=== PATIENT | female | born 1985 | race Caucasian/White ===

== ENCOUNTER 2021-03-30 17:47 | Inpatient (IN) | payer OTHER, MEDICAID, SELFPAY ==
--- NOTE | ~2021-03-30 | XR_ITS ---
EXAMINATION: XR CHEST CLINICAL INFORMATION: Shortness of breath COMPARISON: None TECHNIQUE: 2 views of the chest were obtained. FINDINGS: No significant abnormality is noted involving the heart, lungs, mediastinum, bony thorax or soft tissues. XR/XR chest 2V IMPRESSION: No acute disease.
[2021-03-30 18:26] VITALS: RESP 24; BMI 23.8
--- NOTE | 2021-03-30 19:04 | ED_ITS ---
HPI - Psych General Chief Complaint: Psychiatric Symptoms Stated Complaint: crisis Time Seen by Provider: 03/30/21 18:16 Source: EMS Mode of arrival: EMS History of Present Illness HPI Narrative: 36-year-old female with past medical history is significant for anxiety disorder, depression, , PTSD and substance abuse with alcohol, marijuana and tobacco use with prior history of ED visit in 2004 for alcohol intoxication and overdose on amitriptyline she presents via EMS from her apartment apparently were her neighbor called for patient acting erratically. She was found to be acting erratically and disorganized apparently has not been eating in taking care of herself. Patient upon arrival with rapid speech, disorganized behavior and states symptoms are worsened by the fact that PD was called on her and she was sent in the emergency room on Section 12 for the above complaint. She admits to marijuana use she denies any alcohol or any other illicit drugs. She denies suicidal ideation. complaint: anxiety Onset (ago): day(s) Duration: constant History of same: Yes Relieving factors: none Exacerbating factors: none Associated psychiatric symptoms: none Treatments prior to arrival: none Related Data Allergies Allergy/AdvReac Type Severity Reaction Status Date / Time No Known Allergies Allergy Verified 03/30/21 18:16 Review of Systems Review of Systems: Yes Unobtainable due to mental condition (Acute psychosis) [facility] Past Medical History Medical History (Updated 03/30/21 @ 20:47 by Kevin Herr NP) Anxiety Depression Osteoporosis PTSD (post-traumatic stress disorder) Social History Social History Advance Directives: No Physical Exam Vital Signs: Vital Signs: Last Vital Signs Resp 24 H 03/30/21 18:26 Body Mass Index 23.8 Const: Other: Appears with her stated age, disheveled General: cooperative and poor hygiene; No intoxicated appearing Nutritional Appearance: average body habitus Orientation/consciousness: patient oriented x3 HENMT: Head: Yes normal to inspection Ears: hearing grossly normal ron aterally Eyes: General: appearance normal, both eyes and all related structures Visual Mehta: normal visual mehta by confrontation Neck: Neck: Yes normal visual inspection, No positive Brudzinski's sign, No positive Kernig's sign and No tender Thyroid: Thyroid normal Chest: Chest palpation & inspection: normal inspection of the chest Resp: Effort & Inspection: normal respiratory effort Auscultation: clear to auscultation bilaterally Cardio: Jugular venous distension: no JVD Rate: regular rate Rhythm: regular rhythm Heart sounds: S1 normal heart sound present and S2 normal heart sound present GI: Inspection: Yes normal to inspection Percussion: Yes normal to percussion Auscultation: normal bowel sounds : General: Yes no CVA tenderness Back/Spine/Pelvis: Back: no CVA tenderness Skin: General skin exam: no rashes or lesions noted Neuro: General: patient oriented x3 Extrem: General: Yes normal to inspection Course Reevaluation(s) Reevaluation #1: 1900 In review 36-year-old female with history of anxiety, depression, PTSD, substance abuse presenting on a Section 12 for erratic/disorganized behavior by PD admits to marijuana use otherwise denies any other illicit drug use. History of amitriptyline overdose in 2004. Denies any illicit drug use or taking any intentional drugs today. She is comfort a anderson upon arrival however disorganized and racing thoughts. Able to behavioral health counselor and redirect her and met with care team directly upon arrival. I will give her 1 mg Ativan for her mod erate/severe anxiety attack that she is having and check labs for medical screening and obtain crisis been recent plan reviewed with her in detail, Section 12 and sharp Reevaluation #2: 2100 Care team has been at bedside providing therapeutic redirection to her much calmer after lorazepam. Refused lab work for medical clearance now agreeable. At this time patient will be signed out pending medical clearance with labs and crisis evaluation by N. Discharge Plan Discharge Clinical Impression: Acute anxiety
[2021-03-30] MEDS: LORazepam 1 MG TABLET PO (19:15)
--- NOTE | 2021-03-30 19:21 | MHC.CARE ---
CARE team assisted ED provider and staff with supporting the pt, who arrived by ambulance on a Sect 12 by PD, through the changeover process. This verse writer provided space for pt to speak about recent events and circumstances that led to her being sent to the ED for evaluation. After some time, pt agreed to change into hospital attire and to receive medications to aid with managing her ongoing panic attack that she endorsed experiencing. She has been reluctant to provide a urine sample for a test and a tox screen and was told by this verse writer that she doesn't need to provide one now, and when she is feeling less overwhelmed that we can revisit the matter. During this interaction pt was observed to be responding to internal stimuli, often stopping and staring intensely and stating that she could hear her daughter screaming or her daughter's father yelling at her. She was adamant with her belief that her 1 yr old daughter Lulú had and that she and her daughter's father were told this by the pt's older daughter Anshul, who is 13 years old. The timeline of these events was unclear, but she consistently reported that on 09/11/2020 that she brought Lulú to [facility] ER because she was sick and that they tricked her into handing them her daughter and she was then taken by [facility]. She reported that she has seen her daughter twice since this happened and the last time was on Mother's Day. Pt did share that when Lulú was taken away that the hospital claimed that it was for the same reasons that were listed on the Sect 12, which she denied was happening then and presently. Recommendation is that she be referred for a crisis evaluation once she is deemed medically clear for assessment. If [facility] is unable to provide a clinician, this verse writer will resume meeting with the pt. The Sect 12a will remain active until pt is evaluated, at which time a new Sect 12a may be completed if she is determined to require inpt level of care and intervention.
--- NOTE | 2021-03-30 21:50 | PC.NURSE ---
Per [facility], arrival for eval will be around 0100 or tomorrow during dayshift am.
--- NOTE | 2021-03-30 22:21 | MHC.CARE ---
N unable to provide clinician until after 1am, possibly 1st shift. [facility] triage will notify [facility] that CARE team will be completing assessment. Ample collateral from pt's mother and face to face time has already been expended. This telegraphic typewriter installer will meet with pt again to gather additional information and determine disposition and plan of care.
[2021-03-31] MEDS: LORazepam 1 MG TABLET 2 MG PO (01:34)
--- NOTE | 2021-03-31 03:27 | MHC.CARE ---
Disposition if for inpatient psych placement. Consulted with asset protection lead psych Diana Parker for final dispo. Sect 12a signed by Aditi Warner and placed in pt's chart. She will remain in ED pending admission.
[2021-03-31 05:39] VITALS: RESP 18
[2021-03-31 05:51] LABS: Basophils Absolute Auto 0.1 X10*3/uL (0.0-0.2); Basophils Percent Auto 0.6 % (0-2); Eosinophils Absolute Auto 0.1 X10*3/uL (0.0-0.4); Eosinophils Percent Auto 0.9 % (0-4); Hematocrit 37.9 % (37-47); Hemoglobin 12.9 g/dl (12.0-16.0); Imm Gran Abs Auto 0.02 X10*3/uL (0.00-0.03); Imm Gran Pct Auto 0.2 % (0.0-0.4); Lymphocytes Absolute Auto 2.9 X10*3/uL (1.2-4.9); Lymphocytes Percent Auto 31.4 % (20-40); Mean Corpuscular Hemoglobin 31.1 pg (27.0-33.0); Mean Corpuscular Volume 91.3 fL (80-98); Mean Platelet Volume 12.1 fL (9.4-12.3); Monocytes Absolute Auto 0.7 X10*3/uL (0.1-1.2); Monocytes Percent Auto 7.3 % (2-11); Neutrophils Absolute Auto 5.6 X10*3/uL (2.0-8.3); Neutrophils Percent Auto 59.6 % (45-73); Platelet Count 300 X10*3/uL (160-400); Red Blood Count 4.15 X10*6/uL (4.20-5.50); Red Cell Distribution Width 12.9 % (11.0-16.0); White Blood Count 9.3 X10*3/uL (4.8-10.8)
[2021-03-31 05:52] LABS: MANUAL DIFF FLAG NO
[2021-03-31 06:20] LABS: Ethanol < 10 mg/dL
[2021-03-31 06:23] LABS: Alanine Aminotransferase 10 U/L (0-31); Albumin Level 4.4 g/dL (3.5-5.0); Alkaline Phosphatase 43 U/L (39-117); Anion Gap 15 (12-20); Aspartate Amino Transferase 11 U/L (5-31); Bilirubin Total 1.3 mg/dL (0.0-1.0); Blood Urea Nitrogen 17 mg/dL (9-16); Calcium 9.5 mg/dL (8.4-10.2); Carbon Dioxide 24 mmol/L (22-29); Chloride 106 mmol/L (96-108); Creatinine Clr Calc Pharmacy 74.8; Estimated Glomerular Filt Rate > 60; Glucose Random 83 mg/dL (60-115); Potassium 3.2 mmol/L (3.3-5.1); Sodium 142 mmol/L (135-145); Total Protein 6.5 g/dL (6.5-8.0)
[2021-03-31 07:41] VITALS: RESP 16
[2021-03-31 09:38] VITALS: BP 133/83; PULSE 70; RESP 16; TEMP 36.8; O2SAT 99
[2021-03-31] MEDS: Potassium Chloride Packet 20 MEQ PACKET 40 MEQ PO (09:43)
[2021-03-31 09:48] LABS: HCG Quantitative < 2 mIU/mL
[2021-03-31 10:35] LABS: Influenza A PCR NEGATIVE (Negative); Influenza B PCR NEGATIVE (Negative); Resp Syncy Virus RNA Qual PCR NEGATIVE (Negative); SARS COV2 PCR INHOUSE NEGATIVE (Negative)
--- NOTE | 2021-03-31 10:35 | PC.NURSE ---
Patient currently has PO Potassium at bedside, had originally stated she would drink after having water first, is now refusing because she doesn't trust it . Patient is requesting to speak with the hospital legal team at this time, states my rights are being violated and I never agreed to a blood draw . Patient also accuses this RN of withholding information about my daughter . Disordered and rapid speech noted. Bertrand of CARE team at bedside to speak with patient.
--- NOTE | 2021-03-31 10:59 | PC.NURSE ---
Patient walked into pod, ambulates with steady gait. Report given to MARY Farfan. Patient reports increased anxiety upon going to [facility], states she will refuse all medications offered. Patient yelling at staff, demanding to see the legal team . Security aware of patient.
[2021-03-31 11:39] VITALS: BP 122/76; PULSE 70; RESP 18; O2SAT 99
[2021-03-31] MEDS: Haloperidol Lactate 5 MG/ML VIAL IM (12:41)
[2021-03-31] MEDS: LORazepam 2 MG/ML VIAL IM (12:42)
--- NOTE | 2021-03-31 16:13 | PM.PSYCN ---
History of Present Illness Date of Service: 03/31/21 Chief Complaint: Clary, AH, VH, Delusional thoughts, Insomnia, Reason for Consult: Clary, psychosis, AH,VH, Delusional thought process and content, Insomnia for a few days, substance use, poor appetite, lack of self-care, disorganization. Requesting physician: Kevin Herr Discussed with referring provider: No (discussed with team) Sources of Information: patient interviewed (pt attempted, however is unable to remain awake), chart reviewed and crisis/core team assessment reviewed HPI Narrative: 36 yo female, to ER with police via Section XII found outside in the yard, screaming, manic-like symptoms, AH, VH, delusional that daughter has , using cannabis. Team reports pt not eating, poor self care, Adderall abuse, disorganized with weight loss over the past months. Of note pt is 13 months post (03/14/20), daughter involved with DCF-pt lost custody 08/2020 and team reports daughter is with a paternal grandmother. Team reports pt required chemical restraint @ approximately 1123am of Haldol 5 mg Ativan 2 mg IM. She has reportedly been comfortable since, resting. She did her best to awaken for assessment, greeting automobile and property underwriter, wanting to talk, but overcome with sleep x 3. States she is voluntary for treatment. Past Psychiatric History: Post 03/14/20. OP: Throught DCF with [facility]. Hx of amitriptyline OD with alcohol 2004 IP: Pt unable to answer Hx of SIBS-cutting Medical Evaluation Reviewed: Yes T. Bili 13. BAL 0, K 3.2 with replacement, BUN 17 Personal & Social History: Raised by mother- two brothers- one in MVA age 18, the other is living. 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 Two children- 13 yo son-resides in [place] with his father 1 yo daughter with paternal grandmother +Trauma history Review of Systems Reports behavioral changes Psychiatric: Reports abnormal sleep pattern, Reports behavioral changes, Reports change in appetite, Reports depression, Reports difficulty concentrating, Reports auditory hallucinations, Reports irritability, Reports anhedonia, Reports mood swings, Reports visual hallucinations and Reports hallucinations [facility] Medical History Anxiety Depression Osteoporosis PTSD (post-traumatic stress disorder) Family History: mental illness and addiction-mother Social History: Raised by mother. 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 children-13 yo son in [place], 1 yo armani in [place] Substance History: Alcohol- 1-2 beers Cannabis- + urine screen Trauma History: yes Diagnostics Vital Signs (24Hr): Vital Signs - 24 hr 03/30/21 18:26 03/31/21 05:39 03/31/21 07:41 Temperature Pulse Rate Respiratory Rate 24 H 18 16 Blood Pressure Pulse Oximetry 03/31/21 09:38 03/31/21 11:39 Temperature 98.3 F Pulse Rate 70 70 Respiratory Rate 16 18 Blood Pressure 133/83 122/76 Pulse Oximetry 99 99 Body Mass Index 23.8 Labs Results: 03/31/21 05:46 03/31/21 05:46 Labs: Laboratory Results - last 48 hr 03/31/21 03/31/21 03/31/21 05:46 05:46 05:46 WBC 9.3 RBC 4.15 L Hgb 12.9 Hct 37.9 MCV 91.3 MCH 31.1 MCHC 34.0 RDW 12.9 Plt Count 300 MPV 12.1 Immature Gran % (Auto) 0.2 Neut % (Auto) 59.6 Lymph % (Auto) 31.4 Dare % (Auto) 7.3 Eos % (Auto) 0.9 Baso % (Auto) 0.6 Lymph # (Auto) 2.9 Dare # (Auto) 0.7 Eos # (Auto) 0.1 Baso # (Auto) 0.1 Abs Immat Gran (auto) 0.02 Absolute Neuts (auto) 5.6 Absolute Nucleated RBC 0.000 Nucleated RBC % (auto) 0.0 Sodium 142 Potassium 3.2 L Chloride 106 Carbon Dioxide 24 Anion Gap 15 BUN 17 H Creatinine 0.83 Estim Creat Clear Calc 74.8 Estimated GFR > 60 Random Glucose 83 Calcium 9.5 Total Bilirubin 1.3 H AST 11 ALT 10 Alkaline Phosphatase 43 Total Protein 6.5 Albumin 4.4 Beta HCG, Quant < 2 Ethyl Alcohol < 10 Coronavirus (PCR) Influenza Type A (PCR) Influenza Type B (PCR) RSV RNA Qual (PCR) 03/31/21 09:44 WBC RBC Hgb Hct MCV MCH MCHC RDW Plt Count MPV Immature Gran % (Auto) Neut % (Auto) Lymph % (Auto) Dare % (Auto) Eos % (Auto) Baso % (Auto) Lymph # (Auto) Dare # (Auto) Eos # (Auto) Baso # (Auto) Abs Immat Gran (auto) Absolute Neuts (auto) Absolute Nucleated RBC Nucleated RBC % (auto) Sodium Potassium Chloride Carbon Dioxide Anion Gap BUN Creatinine Estim Creat Clear Calc Estimated GFR Random Glucose Calcium Total Bilirubin AST ALT Alkaline Phosphatase Total Protein Albumin Beta HCG, Quant Ethyl Alcohol Coronavirus (PCR) NEGATIVE Influenza Type A (PCR) NEGATIVE Influenza Type B (PCR) NEGATIVE RSV RNA Qual (PCR) NEGATIVE Mental Status Exam Mental Status Exam Patient Appearance: Fatigued Patient Orientation: Person Level of Consciousness: Drowsy, Sedated and Lethargic Patient Behavior: Appropriate, Sedated and Fatigued Mood Description: Flat Affect Description: Flat Ability to Follow Directions: Fair Speech Pattern: Impoverished, Spontaneous Speech, Soft-Spoken, Delayed and Long Pauses Memory Description: Episodic Impaired Hallucinations: Auditory and Visual Delusions: Paranoid Ideation Thought Process: Slowed Thinking Thought Content: positive for Poverty of Content Depressive Symptoms: Insomnia, Increased Irritability, Difficulty Sleeping, Changes in Appetite, Significant Weight Loss, Increased Fatigue and Loss of Energy Judgement: Poor Medications Allergies Allergies Allergy/AdvReac Type Severity Reaction Status Date / Time No Known Allergies Allergy Verified 03/30/21 18:16 Assessment & Plan Assessment & Plan (1) Psychosis: Status: Acute Code(s): F29 - Unspecified psychosis not due to a substance or known physiological condition Assessment and Plan: 36 yo female, to ER via Section XII/police after being found outside of her home screaming, distracted, responding to internal stimuli- ,, believes her daughter has , being without sleep in a few days, not eating, poor self-care and disorganized. Today, pt is a poor historian however was diligent in her attempts but too sedate s/p being given Haldol 5 mg IM/Ativan 2 mg IM at 1123. Team requesting medicine eval for stabilization pending in pt admission-pt reports she is willing to accept care and treatment at this time. Differential diagnosis: Post psychosis, Bipolar I Clary with psychosis, Substance induced psychosis. Plan: Agree pt in need of in pt level of care Labs: TSH, FT4, B12, Folate, Vit D, Lipids, A1C, Iron Profile Olanzapine 10 mg HS Olanzapine 5 mg bid prn psychotic agitation Lorazepam 1 mg po q 4 hours prn MVI i tab daily (recent significant weight loss) Evaluate for another mood stabilizer upon admission. (2) Cannabis use disorder, moderate, dependence: Status: Acute Code(s): F12.20 - Cannabis dependence, uncomplicated Greater than 50% of the session was spent on counseling and/or coordination of care
--- NOTE | 2021-03-31 18:05 | PHA.MEDREC ---
Pharmacy Consult ? Medication Reconciliation Pharmacy has completed the medication reconciliation.
--- NOTE | 2021-03-31 20:15 | MHC.CARE ---
Accepted for admission to M3. Sect 12b signed by Richa Lebron NP at 17:30. Auth obtained at 18:00. Unit notified that admission orders needed to be done in order for pt to be transferred from ED to M3. One nurse is on M3 this evening and there's no nurse available to do the admission at this time. This hand sign writer contacted Nursing Building Construction Professor re: order needed and staffing.
[2021-03-31 23:47] VITALS: BP 140/83; PULSE 79; RESP 13; TEMP 36.1; O2SAT 98
--- NOTE | 2021-04-01 02:01 | PC.ADMIT ---
Isabella is a 36 year old white Hebrew speaking female arrived to unit at 2332. Patient negative for covid. Patient refused to give a urine sample. Patient has a diagnosis of unspecified bipolar. In ED she was yelling and uncooperative and was given IM Ativan and Zyprexa. Patient did not participate in admission process and requested to go to bed on arrival. Patient on a 12B. In ED patient made delusional statements about her 1 year old daughter being . Patient reports not sleeping for 3 days. In ED patient reported AH+ and VH+.
[2021-04-01] MEDS: Cholecalciferol (Vitamin D3) 25 MCG TABLET PO (08:05)
[2021-04-01] MEDS: Cyanocobalamin (Vitamin B-12) 1,000 MCG TABLET 1000 MCG PO (08:06)
[2021-04-01 08:15] VITALS: BP 119/59; PULSE 87; RESP 20; TEMP 36.2; O2SAT 100
[2021-04-01] MEDS: Acetaminophen 325 MG TABLET 650 MG PO ×2 (08:26→18:27)
--- NOTE | 2021-04-01 10:18 | HO.PSYADMNOT ---
HPI Chief Complaint: Psychosisi Sources of Information: patient interviewed, chart reviewed and crisis/core team assessment reviewed HPI Subjective Notes: Andino Warning (given and pt understands) and Section 12B Healthcare Proxy: No Guardianship: No Narrative: Ms. Herrmann is a 36 year-old woman who was brought to [facility] [place] ED by police after neighbors called due to pt screaming outside her house about her daughter being . Apparently, pt has not been able to sleep for several days, not eating well nor able to care for self with electricity shut off for about a month. Per records, pt has been presenting increasingly more paranoid and back in August she brought her infant to [facility] stating she was sick and given concerns in terms of pt able to care for the infant, her daughter was removed from her care and placed in kinship placement with child's paternal grandfather. In the ED, utox not completed only BAL which was negative. Pt was agitated, demanding to leave while in ED requiring IM haldol 5mg and ativan 2mg. On the unit, pt presents as very frustrated, irritable, not cooperative. She reports she suspects members of father's child trying to hurt her and her daughter. She blames them for this hospitalization. Pt presented as very suspicious. She reports when blood was drawn, she was being injected with medications. Pt reports she is fine. When asked about electricity, she states is his landlord who shut it off as pt believes landlord trying to push her out of apartment. She denies SI/HI. She reports her daughter was wrongly taken off her care by DCF and she believes this was also some sort of conspiracy. Several times during interview, pt states I'm not crazy, I'm not paranoid, this is wrong (referring to being in psychiatric unit against her will), now I won't be able to have my daughter back. She has been mostly in bed, irritable at times but also crying inconsolably. Past Psychiatric History: Post 03/14/20. OP: Throught DCF with [facility]. Hx of amitriptyline OD with alcohol 2004 IP: unclear if inpt at [facility] in Aug 2020 Hx of SIBS-cutting Medical Evaluation Reviewed: Yes [facility] Medical History Anxiety Depression Osteoporosis PTSD (post-traumatic stress disorder) Family History: mental illness and addiction-mother Social History: Raised by mother. 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 children-13 yo son in [place], 1 yo armani in [place] Trauma History: yes Diagnostics Vital Signs (24Hr): Vital Signs - 24 hr 04/01/21 22:13 04/02/21 06:00 Temperature 98.0 F 98.1 F Pulse Rate 58 55 Respiratory Rate 16 Blood Pressure 115/62 156/80 H Pulse Oximetry 98 98 Body Mass Index 23.8 Labs Results: 03/31/21 05:46 03/31/21 05:46 Labs: Laboratory Results - last 48 hr 03/31/21 09:44 Coronavirus (PCR) NEGATIVE Influenza Type A (PCR) NEGATIVE Influenza Type B (PCR) NEGATIVE RSV RNA Qual (PCR) NEGATIVE Meds/Allergies Meds Home Medications Acetaminophen (Acetaminophen 325 Mg Tablet) 650 mg PO Q6H PRN PRN Reason: Headache/Pain Mild Scale (1-3) Last Admin: 04/01/21 18:27 Dose: 650 mg Documented by: Acetaminophen (Acetaminophen 325 Mg Tablet) 650 mg PO Q6H PRN PRN Reason: Headache/Pain Mild Scale (1-3) Al Hydroxide/Mg Hydroxide (Magnesium Hydrox/Alum Hydrox 30 Ml Oral.Susp) 30 ml PO Q6H PRN PRN Reason: Heartburn/Nausea Al Hydroxide/Mg Hydroxide (Magnesium Hydrox/Alum Hydrox 30 Ml Oral.Susp) 30 ml PO Q6H PRN PRN Reason: Heartburn/Nausea Cyanocobalamin (Cyanocobalamin (Vitamin B-12) 1,000 Mcg Tablet) 1,000 mcg PO DAILY DEVEN Last Admin: 04/02/21 08:40 Dose: 1,000 mcg Documented by: Hydroxyzine HCl (Hydroxyzine Hcl 25 Mg Tablet) 25 mg PO BEDTIME PRN PRN Reason: Anxiety Hydroxyzine HCl (Hydroxyzine Hcl 25 Mg Tablet) 25 mg PO BEDTIME PRN PRN Reason: Anxiety Lorazepam (Lorazepam 1 Mg Tablet) 1 mg PO Q4H PRN PRN Reason: agitation,anxiety Last Admin: 04/01/21 22:27 Dose: 1 mg Documented by: Magnesium Hydroxide (Milk Of Magnesia 30 Ml Oral.Susp) 30 ml PO DAILY PRN PRN Reason: Constipation Magnesium Hydroxide (Milk Of Magnesia 30 Ml Oral.Susp) 30 ml PO DAILY PRN PRN Reason: Constipation Multivitamins/Minerals (Multivitamin With Minerals Tablet) 1 tab PO DAILY [facility] Last Admin: 04/02/21 08:40 Dose: 1 tab Documented by: Olanzapine (Olanzapine 10 Mg Tablet) 10 mg PO BEDTIME [facility] Last Admin: 04/01/21 22:11 Dose: 10 mg Documented by: Olanzapine (Olanzapine 5 Mg Tablet) 5 mg PO BID PRN PRN Reason: psychosis Pharmacy Consult (Consult Rx Perform Med Rec) 1 each MISCELLANE ONCE PRN PRN Reason: Consult order Trazodone HCl (Trazodone Hcl 50 Mg Tablet) 50 mg PO BEDTIME PRN PRN Reason: Insomnia Trazodone HCl (Trazodone Hcl 50 Mg Tablet) 50 mg PO BEDTIME PRN PRN Reason: Insomnia Vitamin D (Cholecalciferol (Vitamin D3) 25 Mcg Tablet) 25 mcg PO DAILY [facility] Last Admin: 04/02/21 08:40 Dose: 25 mcg Documented by: Allergies Allergies Allergy/AdvReac Type Severity Reaction Status Date / Time No Known Allergies Allergy Verified 03/30/21 18:16 Mental Status Exam Mental Status Exam Narrative: Appearance: casually dressed, disheveled, poor hygiene, tearful Behavior:very guarded, irritable, uncooperative psychomotor:restless Speech:clear, pressured at times, loud at times, spontaneous Thought process:disorganized Thought content:paranoia about family members of her child's father trying to hurt her and her daughter as well as paranoia towards landlord who she believes intentionally shut off her electricity Mood: frustrated Affect: labile SI:denies HI:denies VH/AH:pt denies but appears internally preoccupied. Delusions:paranoid/persecutory delusions Memory/cog: alert, impaired secondary to psychiatric symptoms Assessment & Plan Assessment & Plan (1) Psychosis: Status: Acute Code(s): F29 - Unspecified psychosis not due to a substance or known physiological condition Assessment and Plan: Ms. Herrmann is a 36 year-old woman with apparently new onset paranoid delusions and psychosis for about 8 month to year. She was brought by D after neighbors called as pt was screaming stating her daughter of one year was , which is not the case. Of note, pt's daughter was placed in kindship placement after pt brought her to [facility] and stated daughter needed medical care when it was not the case. We discussed risks, benefits and alternative treatment options. 1. Admit to M3 2. continue Olanzapine 10mg po qhs- pt understands she can decline if she prefers 3. Obtain collateral information 4. Aftercare planning. Reason for continued inpatient stay Substantial Risk for: inability to function
--- NOTE | 2021-04-01 13:33 | PC.NURSE ---
Pt resting in room. Pt declined to engage w/ comic book writer re: admission assessment. Pt also declined to sign forms re: BERNARD , treatment plan, or behavioral contract.
[2021-04-01] MEDS: LORazepam 1 MG TABLET PO ×2 (18:27→22:27)
[2021-04-01] MEDS: OLANZapine 10 MG TABLET PO (22:11)
[2021-04-01 22:13] VITALS: BP 115/62; PULSE 58; TEMP 36.7; O2SAT 98
[2021-04-02 06:00] VITALS: BP 156/80; PULSE 55; RESP 16; TEMP 36.7; O2SAT 98
[2021-04-02] MEDS: Cholecalciferol (Vitamin D3) 25 MCG TABLET PO (08:40)
[2021-04-02] MEDS: Cyanocobalamin (Vitamin B-12) 1,000 MCG TABLET 1000 MCG PO (08:40)
--- NOTE | 2021-04-02 10:42 | P.PNPSI_ITS ---
Subjective Subjective Date of Service: 04/03/21 Reason For Visit: Psychosisi Subjective Notes: Section 12B Interim History: Pt discussed in round. VS wnl. Pt has been mostly in bed. She reports she is in hospital because I didn't sleep, that's it! Pt very irritable, at first declining to talk with this ad copy writer stating that her mother, father of her daughter and landlord conspirating against her. Pt reports she is sure her daughter has some autoimmune disease and has not been properly treated. Note that pt brought daughter earlier in August [facility] insisted that daughter needed treatment, which prompted concern about pt's ability to care for daughter and ultimately DCF got involved and now daughter is placed in kinship placement with paternal grandfather. Pt continues to report that it was her landlord who shut off her electricity because he wants her ou t. Pt very paranoid toward mother. She denied SI/HI. She has not showered, minimal oral intake. Medication Compliance: Intermittent Side effects from medications: No Attending Groups: No Review of Systems Acute medical concerns: No Review of Systems Review of Systems Yes Unobtainable due to mental condition (Acute psychosis) Reports behavioral changes Psychiatric: Reports abnormal sleep pattern, Reports behavioral changes, Reports change in appetite, Reports depression, Reports difficulty concentrating, Reports auditory hallucinations, Reports irritability, Reports anhedonia, Reports mood swings, Reports visual hallucinations and Reports hallucinations Mental Status Exam Mental Status Exam Narrative: Appearance: casually dressed, disheveled, poor hygiene, tearful Behavior:very guarded, irritable, uncooperative psychomotor:restless Speech:clear, pressured at times, loud at times, spontaneous Thought process:disorganized Thought content:paranoia about family members of her child's father trying to hurt her and her daughter as well as paranoia towards landlord who she believes intentionally shut off her electricity Mood: frustrated Affect: labile SI:denies HI:denies VH/AH:pt denies but appears internally preoccupied. Delusions:paranoid/persecutory delusions Memory/cog: alert, impaired secondary to psychiatric symptoms Diagnostics Vital Signs (24Hr): Vital Signs - 24 hr 04/02/21 22:39 Temperature 97.9 F Pulse Rate 57 Blood Pressure 124/70 Pulse Oximetry 100 Body Mass Index 23.8 Labs Results: 03/31/21 05:46 03/31/21 05:46 Medications Medications Current Medications Generic Name Dose Route Start Last Admin Trade Name Freq PRN Reason Stop Dose Admin Acetaminophen 650 mg 03/31/21 23:06 Acetaminophen 325 Mg Tablet PO Q6H PRN Headache/Pain Mild Scale (1-3) Al Hydroxide/Mg Hydroxide 30 ml 03/31/21 23:06 Magnesium Hydrox/Alum Hydrox 30 Ml Oral.Susp PO Q6H PRN Heartburn/Nausea Cyanocobalamin 1,000 mcg 04/01/21 09:00 04/03/21 08:51 Cyanocobalamin (Vitamin B-12) 1,000 Mcg Tablet PO 1,000 mcg DAILY DEVEN Administration Hydroxyzine HCl 25 mg 03/31/21 17:29 Hydroxyzine Hcl 25 Mg Tablet PO BEDTIME PRN Anxiety Lorazepam 1 mg 03/31/21 16:44 04/03/21 08:54 Lorazepam 1 Mg Tablet PO 1 mg Q4H PRN Administration agitation,anxiety Magnesium Hydroxide 30 ml 03/31/21 23:06 Milk Of Magnesia 30 Ml Oral.Susp PO DAILY PRN Constipation Multivitamins/Minerals 1 tab 04/01/21 09:00 04/03/21 08:51 Multivitamin With Minerals Tablet PO 1 tab DAILY DEVEN Administration Olanzapine 15 mg 04/03/21 21:00 Olanzapine 7.5 Mg Tablet PO BEDTIME DEVEN Olanzapine 5 mg 04/03/21 10:05 Olanzapine 5 Mg Tablet PO Q6H PRN psychosis Pharmacy Consult 1 each 03/31/21 17:22 Consult Rx Perform Med Rec MISCELLANE ONCE PRN Consult order Trazodone HCl 50 mg 03/31/21 23:06 Trazodone Hcl 50 Mg Tablet PO BEDTIME PRN Insomnia Vitamin D 25 mcg 04/01/21 09:00 04/03/21 08:51 Cholecalciferol (Vitamin D3) 25 Mcg Tablet PO 25 mcg DAILY DEVEN Administration Allergies Allergies Allergy/AdvReac Type Severity Reaction Status Date / Time No Known Allergies Allergy Verified 03/30/21 18:16 Assessment & Plan Assessment & Plan (1) Bipolar 1 disorder, mixed, severe: Status: Acute Code(s): F31.63 - Bipolar disorder, current episode mixed, severe, without psychotic features Assessment and Plan: Ms. Herrmann is a 36 year-old woman brought to [facility] [place] by [facility] as pt was outside her door screaming reporting her daughter was , which is not the case. Pt presented as labile, paranoid, guarded, disorganized behavior. 1. Continue Olanzapine 10mg po qhs- will titrate as clinically indicated. 2. obtain collateral information- mother did speak with clinician River- refer to her note. 3. Aftercare planning Greater than 50% of the session was spent on counseling and/or coordination of care Reason for contiued inpatient stay Substantial Risk for: inability to function
--- NOTE | 2021-04-02 12:21 | PC.NURSE ---
Patient refusing to complete admission or sign any forms. Patient avoids responding to smoking assessment questions. States she is only here to rest and does not need any nicotine replacement.
[2021-04-02] MEDS: Acetaminophen 325 MG TABLET 650 MG PO ×2 (14:54→22:14)
[2021-04-02] MEDS: LORazepam 1 MG TABLET PO ×2 (14:55→22:14)
[2021-04-02] MEDS: OLANZapine 10 MG TABLET PO (22:15)
[2021-04-02 22:39] VITALS: BP 124/70; PULSE 57; TEMP 36.6; O2SAT 100
--- NOTE | 2021-04-03 | ECG_ITS ---
Test Reason : CHEST PAIN/TIGHTNSS Blood Pressure : / mmHG Vent. Rate : 069 BPM Atrial Rate : 082 BPM P-R Int : 138 ms QRS Dur : 090 ms QT Int : 418 ms P-R-T Axes : 064 073 079 degrees QTc Int : 447 ms Sinus rhythm with marked sinus arrhythmia Otherwise normal ECG When compared with ECG of 09-MAR-2005 05:48, Nonspecific T wave abnormality now evident in Lateral leads Referred By: Richa Lebron Electronically Signed By:KHANH SHUKLA MD
--- NOTE | 2021-04-03 08:29 | HO.PSYCHPN ---
Subjective Subjective Date of Service: 04/05/21 Reason For Visit: Psychosisi Interim History: Pt discussed in round. VS wnl. Pt has been mostly in bed. Pt reports overall muscle/joint pain. she also reports chest tightness, difficulty breathing. labs ordered including ekg, chest xr. she declined labs, including repeat potassium which it was low on admission. She reports she is in hospital because I didn't sleep, that's it! Pt very irritable, at first declining to talk with this junior copywriter stating that her mother, father of her daughter and landlord conspirating against her. Pt reports she is sure her daughter has some autoimmune disease and has not been properly treated. Note that pt brought daughter earlier in August [facility] insisted that daughter needed treatment, which prompted concern about pt's ability to care for daughter and ultimately DCF got involved and now daughter is placed in kinship placement with paternal grandfather. Pt continues to report that it was her landlord who shut off her electricity because he wants her out. Pt very paranoid toward mother. She denied SI/HI. She has not showered, minimal oral intake. Review of Systems Review of Systems Yes Unobtainable due to mental condition (Acute psychosis) Reports behavioral changes Psychiatric: Reports abnormal sleep pattern, Reports behavioral changes, Reports change in appetite, Reports depression, Reports difficulty concentrating, Reports auditory hallucinations, Reports irritability, Reports anhedonia, Reports mood swings, Reports visual hallucinations and Reports hallucinations Mental Status Exam Mental Status Exam Narrative: Appearance: casually dressed, disheveled, poor hygiene, tearful Behavior:very guarded, irritable, uncooperative psychomotor:restless Speech:clear, pressured at times, loud at times, spontaneous Thought process:disorganized Thought content:paranoia about family members of her child's father trying to hurt her and her daughter as well as paranoia towards landlord who she believes intentionally shut off her electricity Mood: frustrated Affect: labile SI:denies HI:denies VH/AH:pt denies but appears internally preoccupied. Delusions:paranoid/persecutory delusions Memory/cog: alert, impaired secondary to psychiatric symptoms Patient Appearance: Fatigued Patient Orientation: Person Level of Consciousness: Drowsy, Sedated and Lethargic Patient Behavior: Appropriate, Sedated and Fatigued Mood Description: Flat Affect Description: Flat Ability to Follow Directions: Fair Speech Pattern: Impoverished, Spontaneous Speech, Soft-Spoken, Delayed and Long Pauses Memory Description: Episodic Impaired Diagnostics Vital Signs (24Hr): Vital Signs - 24 hr 04/04/21 08:42 04/04/21 20:16 Temperature 97.6 F 98.1 F Pulse Rate 73 62 Respiratory Rate 16 Blood Pressure 118/60 123/77 Pulse Oximetry 98 100 Body Mass Index 23.8 Labs Results: 03/31/21 05:46 03/31/21 05:46 Imaging Radiology Impressions: ITS Impressions Chest X-Ray 04/03/21 16:16 IMPRESSION: No acute disease. Medications Medications Current Medications Generic Name Dose Route Start Last Admin Trade Name Freq PRN Reason Stop Dose Admin Acetaminophen 650 mg 03/31/21 23:06 04/04/21 22:21 Acetaminophen 325 Mg Tablet PO 650 mg Q6H PRN Administration Headache/Pain Mild Scale (1-3) Al Hydroxide/Mg Hydroxide 30 ml 03/31/21 23:06 Magnesium Hydrox/Alum Hydrox 30 Ml Oral.Susp PO Q6H PRN Heartburn/Nausea Cyanocobalamin 1,000 mcg 04/01/21 09:00 04/04/21 08:44 Cyanocobalamin (Vitamin B-12) 1,000 Mcg Tablet PO 1,000 mcg DAILY DEVEN Administration Cyclobenzaprine HCl 10 mg 04/04/21 16:44 04/04/21 22:17 Cyclobenzaprine Hcl 10 Mg Tablet PO 10 mg BEDTIME PRN Administration Muscle Spasm Hydroxyzine HCl 25 mg 03/31/21 17:29 Hydroxyzine Hcl 25 Mg Tablet PO BEDTIME PRN Anxiety Ibuprofen 800 mg 04/03/21 17:00 04/04/21 17:59 Ibuprofen 800 Mg Tablet PO 800 mg TIDWM DEVEN Administration Lorazepam 1 mg 03/31/21 16:44 04/04/21 18:50 Lorazepam 1 Mg Tablet PO 1 mg Q4H PRN Administration agitation,anxiety Magnesium Hydroxide 30 ml 03/31/21 23:06 Milk Of Magnesia 30 Ml Oral.Susp PO DAILY PRN Constipation Multivitamins/Minerals 1 tab 04/01/21 09:00 04/04/21 08:44 Multivitamin With Minerals Tablet PO 1 tab DAILY DEVEN Administration Olanzapine 5 mg 04/03/21 10:05 Olanzapine 5 Mg Tablet PO Q6H PRN psychosis Olanzapine 20 mg 04/04/21 21:00 04/04/21 22:20 Olanzapine 10 Mg Tablet PO 20 mg BEDTIME DEVEN Administration Pharmacy Consult 1 each 03/31/21 17:22 Consult Rx Perform Med Rec MISCELLANE ONCE PRN Consult order Trazodone HCl 50 mg 03/31/21 23:06 Trazodone Hcl 50 Mg Tablet PO BEDTIME PRN Insomnia Vitamin D 25 mcg 04/01/21 09:00 04/04/21 08:44 Cholecalciferol (Vitamin D3) 25 Mcg Tablet PO 25 mcg DAILY DEVEN Administration Allergies Allergies Allergy/AdvReac Type Severity Reaction Status Date / Time No Known Allergies Allergy Verified 03/30/21 18:16 Assessment & Plan Assessment & Plan (1) Bipolar 1 disorder, mixed, severe: Status: Acute Code(s): F31.63 - Bipolar disorder, current episode mixed, severe, without psychotic features Assessment and Plan: Ms. Herrmann is a 36 year-old woman brought to [facility] [place] by [facility] as pt was outside her door screaming reporting her daughter was , which is not the case. Pt presented as labile, paranoid, guarded, disorganized behavior. 1. Continue Olanzapine 10mg po qhs- will titrate as clinically indicated. 2. obtain collateral information- mother did speak with clinician River- refer to her note. 3. Aftercare planning Greater than 50% of the session was spent on counseling and/or coordination of care Reason for contiued inpatient stay Substantial Risk for: inability to function
[2021-04-03] MEDS: Cyanocobalamin (Vitamin B-12) 1,000 MCG TABLET 1000 MCG PO (08:51)
[2021-04-03] MEDS: Cholecalciferol (Vitamin D3) 25 MCG TABLET PO (08:51)
[2021-04-03] MEDS: Acetaminophen 325 MG TABLET 650 MG PO ×3 (08:54→20:57)
[2021-04-03] MEDS: LORazepam 1 MG TABLET PO ×2 (08:54→20:57)
[2021-04-03 09:00] VITALS: BP 126/74; PULSE 53; RESP 14; TEMP 36.8; O2SAT 99
[2021-04-03] MEDS: Ibuprofen 800 MG TABLET PO (15:53)
[2021-04-03 20:09] VITALS: BP 125/57; PULSE 66; RESP 16; TEMP 36.7; O2SAT 98
[2021-04-03] MEDS: OLANZapine 7.5 MG TABLET 15 MG PO (20:41)
--- NOTE | 2021-04-04 08:32 | P.PNPSI_ITS ---
Subjective Subjective Date of Service: 04/05/21 Reason For Visit: Psychosisi Subjective Notes: Section 7 Interim History: Pt discussed in round. VS wnl. Pt has been mostly in bed. Pt reports overall muscle/joint pain. she also reports chest tightness, difficulty breathing. labs ordered including ekg, chest xr. she declined labs, including repeat potassium which it was low on admission. She reports ibuprofen helping somewhat with muscle aches. She is slightly less irritable, but continues to present with paranoia. She reports she is in hospital because I didn't sleep, that's it! Pt reports she is sure her daughter has some autoimmune disease and has not been properly treated. Note that pt brought daughter earlier in August [facility] insisted that daughter needed treatment, which prompted concern about pt's ability to care for daughter and ultimately DCF got involved and now daughter is placed in kinship placement with paternal grandfather. Pt continues to report that it was her landlord who shut off her electricity because he wants her out. Pt very pa ranoid toward mother. She denied SI/HI. She has not showered, minimal oral intake. Review of Systems Review of Systems Yes Unobtainable due to mental condition (Acute psychosis) Reports behavioral changes Psychiatric: Reports abnormal sleep pattern, Reports behavioral changes, Reports change in appetite, Reports depression, Reports difficulty concentrating, Reports auditory hallucinations, Reports irritability, Reports anhedonia, Reports mood swings, Reports visual hallucinations and Reports hallucinations Mental Status Exam Mental Status Exam Narrative: Appearance: casually dressed, disheveled, poor hygiene, tearful Behavior:very guarded, irritable, uncooperative psychomotor:restless Speech:clear, pressured at times, loud at times, spontaneous Thought process:disorganized Thought content:paranoia about family members of her child's father trying to hurt her and her daughter as well as paranoia towards landlord who she believes intentionally shut off her electricity Mood: frustrated Affect: labile SI:denies HI:denies VH/AH:pt denies but appears internally preoccupied. Delusions:paranoid/persecutory delusions Memory/cog: alert, impaired secondary to psychiatric symptoms Patient Appearance: Fatigued Patient Orientation: Person Level of Consciousness: Drowsy, Sedated and Lethargic Patient Behavior: Appropriate, Sedated and Fatigued Mood Description: Flat Affect Description: Flat Ability to Follow Directions: Fair Speech Pattern: Impoverished, Spontaneous Speech, Soft-Spoken, Delayed and Long Pauses Memory Description: Episodic Impaired Diagnostics Vital Signs (24Hr): Vital Signs - 24 hr 04/04/21 08:42 04/04/21 20:16 Temperature 97.6 F 98.1 F Pulse Rate 73 62 Respiratory Rate 16 Blood Pressure 118/60 123/77 Pulse Oximetry 98 100 Body Mass Index 23.8 Labs Results: 03/31/21 05:46 03/31/21 05:46 Imaging Radiology Impressions: ITS Impressions Chest X-Ray 04/03/21 16:16 IMPRESSION: No acute disease. Medications Medications Current Medications Generic Name Dose Route Start Last Admin Trade Name Freq PRN Reason Stop Dose Admin Acetaminophen 650 mg 03/31/21 23:06 04/04/21 22:21 Acetaminophen 325 Mg Tablet PO 650 mg Q6H PRN Administration Headache/Pain Mild Scale (1-3) Al Hydroxide/Mg Hydroxide 30 ml 03/31/21 23:06 Magnesium Hydrox/Alum Hydrox 30 Ml Oral.Susp PO Q6H PRN Heartburn/Nausea Cyanocobalamin 1,000 mcg 04/01/21 09:00 04/04/21 08:44 Cyanocobalamin (Vitamin B-12) 1,000 Mcg Tablet PO 1,000 mcg DAILY DEVEN Administration Cyclobenzaprine HCl 10 mg 04/04/21 16:44 04/04/21 22:17 Cyclobenzaprine Hcl 10 Mg Tablet PO 10 mg BEDTIME PRN Administration Muscle Spasm Hydroxyzine HCl 25 mg 03/31/21 17:29 Hydroxyzine Hcl 25 Mg Tablet PO BEDTIME PRN Anxiety Ibuprofen 800 mg 04/03/21 17:00 04/04/21 17:59 Ibuprofen 800 Mg Tablet PO 800 mg TIDWM DEVEN Administration Lorazepam 1 mg 03/31/21 16:44 04/04/21 18:50 Lorazepam 1 Mg Tablet PO 1 mg Q4H PRN Administration agitation,anxiety Magnesium Hydroxide 30 ml 03/31/21 23:06 Milk Of Magnesia 30 Ml Oral.Susp PO DAILY PRN Constipation Multivitamins/Minerals 1 tab 04/01/21 09:00 04/04/21 08:44 Multivitamin With Minerals Tablet PO 1 tab DAILY DEVEN Administration Olanzapine 5 mg 04/03/21 10:05 Olanzapine 5 Mg Tablet PO Q6H PRN psychosis Olanzapine 20 mg 04/04/21 21:00 04/04/21 22:20 Olanzapine 10 Mg Tablet PO 20 mg BEDTIME DEVEN Administration Pharmacy Consult 1 each 03/31/21 17:22 Consult Rx Perform Med Rec MISCELLANE ONCE PRN Consult order Trazodone HCl 50 mg 03/31/21 23:06 Trazodone Hcl 50 Mg Tablet PO BEDTIME PRN Insomnia Vitamin D 25 mcg 04/01/21 09:00 04/04/21 08:44 Cholecalciferol (Vitamin D3) 25 Mcg Tablet PO 25 mcg DAILY DEVEN Administration Allergies Allergies Allergy/AdvReac Type Severity Reaction Status Date / Time No Known Allergies Allergy Verified 03/30/21 18:16 Assessment & Plan Assessment & Plan (1) Bipolar 1 disorder, mixed, severe: Status: Acute Code(s): F31.63 - Bipolar disorder, current episode mixed, severe, without psychotic f eatures Assessment and Plan: Ms. Herrmann is a 36 year-old woman brought to [facility] [place] by [facility] as pt was outside her door screaming reporting her daughter was , which is not the case. Pt presented as labile, paranoid, guarded, disorganized behavior. 1. Continue Olanzapine 10mg po qhs- will titrate as clinically indicated. 2. obtain collateral information- mother did speak with clinician River- refer to her note. 3. Aftercare planning Greater than 50% of the session was spent on counseling and/or coordination of care Reason for contiued inpatient stay Substantial Risk for: inability to function
[2021-04-04 08:42] VITALS: BP 118/60; PULSE 73; RESP 16; TEMP 36.4; O2SAT 98
[2021-04-04] MEDS: Ibuprofen 800 MG TABLET PO ×3 (08:44→17:59)
[2021-04-04] MEDS: Cyanocobalamin (Vitamin B-12) 1,000 MCG TABLET 1000 MCG PO (08:44)
[2021-04-04] MEDS: Cholecalciferol (Vitamin D3) 25 MCG TABLET PO (08:44)
[2021-04-04] MEDS: LORazepam 1 MG TABLET PO ×2 (13:59→18:50)
[2021-04-04 20:16] VITALS: BP 123/77; PULSE 62; TEMP 36.7; O2SAT 100
[2021-04-04] MEDS: Cyclobenzaprine HCl 10 MG TABLET PO (22:17)
[2021-04-04] MEDS: OLANZapine 10 MG TABLET 20 MG PO (22:20)
[2021-04-04] MEDS: Acetaminophen 325 MG TABLET 650 MG PO (22:21)
[2021-04-05 08:50] VITALS: BP 112/67; PULSE 75; RESP 14; TEMP 36.7; O2SAT 99
[2021-04-05] MEDS: Cyanocobalamin (Vitamin B-12) 1,000 MCG TABLET 1000 MCG PO (08:52)
[2021-04-05] MEDS: Cholecalciferol (Vitamin D3) 25 MCG TABLET PO (08:52)
[2021-04-05] MEDS: Ibuprofen 800 MG TABLET PO ×3 (08:52→17:56)
--- NOTE | 2021-04-05 12:15 | HO.PSYCHPN ---
Subjective Subjective Date of Service: 04/05/21 Reason For Visit: Psychosisi Interim History: Nursing staff reported that the patient has been isolative, yesterday, she only ate breakfast and lunch. Since the team filed for section 7 and 8, her display specialist came yesterday but she refused to see him. Her mother viisted her and as per team, they had a heated discussion. On interview, she reported that she is OK, she was lying on bed, not engagable. Review of Systems Acute medical concerns: No Medical Review of Systems: unchanged Mental Status Exam Mental Status Exam Patient Appearance: Disheveled Patient Orientation: Person Level of Consciousness: Awake Patient Behavior: Guarded and Suspicious Mood Description: Suspicious Affect Description: Constricted Patient Cognition Impaired: No Ability to Follow Directions: Poor Speech Pattern: Clear Hallucinations: Auditory Delusions: Paranoid Ideation Thought Process: Distracted Thought Content: positive for Perseveration, positive for Poverty of Content and positive for Thought Blocking Judgement: Poor Diagnostics Vital Signs (24Hr): Vital Signs - 24 hr 04/04/21 20:16 04/05/21 08:50 Temperature 98.1 F 98.0 F Pulse Rate 62 75 Respiratory Rate 14 Blood Pressure 123/77 112/67 Pulse Oximetry 100 99 Body Mass Index 23.8 Labs Results: 03/31/21 05:46 03/31/21 05:46 Imaging Radiology Impressions: ITS Impressions Chest X-Ray 04/03/21 16:16 IMPRESSION: No acute disease. Medications Medications Current Medications Generic Name Dose Route Start Last Admin Trade Name Freq PRN Reason Stop Dose Admin Acetaminophen 650 mg 03/31/21 23:06 04/04/21 22:21 Acetaminophen 325 Mg Tablet PO 650 mg Q6H PRN Administration Headache/Pain Mild Scale (1-3) Al Hydroxide/Mg Hydroxide 30 ml 03/31/21 23:06 Magnesium Hydrox/Alum Hydrox 30 Ml Oral.Susp PO Q6H PRN Heartburn/Nausea Cyanocobalamin 1,000 mcg 04/01/21 09:00 04/05/21 08:52 Cyanocobalamin (Vitamin B-12) 1,000 Mcg Tablet PO 1,000 mcg DAILY DEVEN Administration Cyclobenzaprine HCl 10 mg 04/04/21 16:44 04/04/21 22:17 Cyclobenzaprine Hcl 10 Mg Tablet PO 10 mg BEDTIME PRN Administration Muscle Spasm Hydroxyzine HCl 25 mg 03/31/21 17:29 Hydroxyzine Hcl 25 Mg Tablet PO BEDTIME PRN Anxiety Ibuprofen 800 mg 04/03/21 17:00 04/05/21 08:52 Ibuprofen 800 Mg Tablet PO 800 mg TIDWM DEVEN Administration Lorazepam 1 mg 03/31/21 16:44 04/04/21 18:50 Lorazepam 1 Mg Tablet PO 1 mg Q4H PRN Administration agitation,anxiety Magnesium Hydroxide 30 ml 03/31/21 23:06 Milk Of Magnesia 30 Ml Oral.Susp PO DAILY PRN Constipation Multivitamins/Minerals 1 tab 04/01/21 09:00 04/05/21 08:52 Multivitamin With Minerals Tablet PO 1 tab DAILY DEVEN Administration Olanzapine 5 mg 04/03/21 10:05 Olanzapine 5 Mg Tablet PO Q6H PRN psychosis Olanzapine 20 mg 04/04/21 21:00 04/04/21 22:20 Olanzapine 10 Mg Tablet PO 20 mg BEDTIME DEVEN Administration Pharmacy Consult 1 each 03/31/21 17:22 Consult Rx Perform Med Rec MISCELLANE ONCE PRN Consult order Trazodone HCl 50 mg 03/31/21 23:06 Trazodone Hcl 50 Mg Tablet PO BEDTIME PRN Insomnia Vitamin D 25 mcg 04/01/21 09:00 04/05/21 08:52 Cholecalciferol (Vitamin D3) 25 Mcg Tablet PO 25 mcg DAILY DEVEN Administration Allergies Allergies Allergy/AdvReac Type Severity Reaction Status Date / Time No Known Allergies Allergy Verified 03/30/21 18:16 Assessment & Plan Assessment & Plan (1) Bipolar 1 disorder, mixed, severe: Status: Acute Code(s): F31.63 - Bipolar disorder, current episode mixed, severe, without psychotic features Assessment and Plan: Ms. Herrmann is a 36 year-old woman brought to [facility] [place] by D as pt was outside her door screaming reporting her daughter was , which is not the case. Pt presented as labile, paranoid, guarded, disorganized behavior. 1. Continue Olanzapine 10mg po qhs- will titrate as clinically indicated. 2. obtain collateral information- mother did speak with clinician River- refer to her note. 3. Aftercare planning Greater than 50% of the session was spent on counseling and/or coordination of care Reason for contiued inpatient stay Substantial Risk for: inability to function, rapid decompensation and med/psych decompensation
[2021-04-05 20:03] VITALS: BP 130/64; PULSE 89; TEMP 36.8; O2SAT 97
[2021-04-05] MEDS: Acetaminophen 325 MG TABLET 650 MG PO (20:34)
[2021-04-05] MEDS: LORazepam 1 MG TABLET PO (20:34)
[2021-04-05] MEDS: Cyclobenzaprine HCl 10 MG TABLET PO (22:16)
[2021-04-05] MEDS: hydrOXYzine HCL 25 MG TABLET PO (22:16)
[2021-04-05] MEDS: OLANZapine 10 MG TABLET 20 MG PO (22:16)
[2021-04-06 09:19] VITALS: BP 119/87; PULSE 103; RESP 18; TEMP 37.1; O2SAT 99
[2021-04-06] MEDS: Cyanocobalamin (Vitamin B-12) 1,000 MCG TABLET 1000 MCG PO (09:24)
[2021-04-06] MEDS: Ibuprofen 800 MG TABLET PO ×3 (09:25→17:03)
[2021-04-06] MEDS: Cholecalciferol (Vitamin D3) 25 MCG TABLET PO (09:26)
--- NOTE | 2021-04-06 11:40 | HO.PSYCHPN ---
Subjective Subjective Date of Service: 04/06/21 Reason For Visit: Psychosisi Interim History: Nursing staff reported that she is mostly isolative in her room, she has verbalized that she is admitted only for medical reasons, I was withdrawing from Adderall and Ativan, I am not here for psychiatric reasons . Today, at AM, nursing staff reported that she was more engagable. Today, she stated that she was OK, no new symptoms, today I am feeling better Review of Systems Acute medical concerns: No Medical Review of Systems: unchanged Mental Status Exam Mental Status Exam Patient Appearance: Well Grooomed Patient Orientation: Person Level of Consciousness: Awake Patient Behavior: Passive and Suspicious Mood Description: Suspicious and Withdrawn Affect Description: Constricted Patient Cognition Impaired: No Ability to Follow Directions: Good Speech Pattern: Clear Delusions: Paranoid Ideation Thought Process: Evasive Thought Content: positive for [place] and positive for Poverty of Content Judgement: Poor Diagnostics Vital Signs (24Hr): Vital Signs - 24 hr 04/05/21 20:03 04/06/21 09:19 Temperature 98.2 F 98.7 F Pulse Rate 89 103 H Respiratory Rate 18 Blood Pressure 130/64 119/87 Pulse Oximetry 97 99 Body Mass Index 23.8 Labs Results: 03/31/21 05:46 03/31/21 05:46 Imaging Radiology Impressions: ITS Impressions Chest X-Ray 04/03/21 16:16 IMPRESSION: No acute disease. Medications Medications Current Medications Generic Name Dose Route Start Last Admin Trade Name Freq PRN Reason Stop Dose Admin Acetaminophen 650 mg 03/31/21 23:06 04/05/21 20:34 Acetaminophen 325 Mg Tablet PO 650 mg Q6H PRN Administration Headache/Pain Mild Scale (1-3) Al Hydroxide/Mg Hydroxide 30 ml 03/31/21 23:06 Magnesium Hydrox/Alum Hydrox 30 Ml Oral.Susp PO Q6H PRN Heartburn/Nausea Cyanocobalamin 1,000 mcg 04/01/21 09:00 04/06/21 09:24 Cyanocobalamin (Vitamin B-12) 1,000 Mcg Tablet PO 1,000 mcg DAILY DEVEN Administration Cyclobenzaprine HCl 10 mg 04/04/21 16:44 04/05/21 22:16 Cyclobenzaprine Hcl 10 Mg Tablet PO 10 mg BEDTIME PRN Administration Muscle Spasm Hydroxyzine HCl 25 mg 03/31/21 17:29 04/05/21 22:16 Hydroxyzine Hcl 25 Mg Tablet PO 25 mg BEDTIME PRN Administration Anxiety Ibuprofen 800 mg 04/03/21 17:00 04/06/21 09:25 Ibuprofen 800 Mg Tablet PO 800 mg TIDWM DEVEN Administration Lorazepam 1 mg 04/05/21 20:02 04/05/21 20:34 Lorazepam 1 Mg Tablet PO 1 mg Q4H PRN Administration Anxiety Magnesium Hydroxide 30 ml 03/31/21 23:06 Milk Of Magnesia 30 Ml Oral.Susp PO DAILY PRN Constipation Multivitamins/Minerals 1 tab 04/01/21 09:00 04/06/21 09:24 Multivitamin With Minerals Tablet PO 1 tab DAILY DEVEN Administration Olanzapine 5 mg 04/03/21 10:05 Olanzapine 5 Mg Tablet PO Q6H PRN psychosis Olanzapine 20 mg 04/04/21 21:00 04/05/21 22:16 Olanzapine 10 Mg Tablet PO 20 mg BEDTIME DEVEN Administration Pharmacy Consult 1 each 03/31/21 17:22 Consult Rx Perform Med Rec MISCELLANE ONCE PRN Consult order Trazodone HCl 50 mg 03/31/21 23:06 Trazodone Hcl 50 Mg Tablet PO BEDTIME PRN Insomnia Vitamin D 25 mcg 04/01/21 09:00 04/06/21 09:26 Cholecalciferol (Vitamin D3) 25 Mcg Tablet PO 25 mcg DAILY DEVEN Administration Allergies Allergies Allergy/AdvReac Type Severity Reaction Status Date / Time No Known Allergies Allergy Verified 03/30/21 18:16 Assessment & Plan Assessment & Plan (1) Bipolar 1 disorder, mixed, severe: Status: Acute Code(s): F31.63 - Bipolar disorder, current episode mixed, severe, without psychotic features Assessment and Plan: Ms. Herrmann is a 36 year-old woman brought to [facility] [place] by D as pt was outside her door screaming reporting her daughter was , which is not the case. Pt presented as labile, paranoid, guarded, disorganized behavior. 1. Continue Olanzapine 10mg po qhs- will titrate as clinically indicated. 2. obtain collateral information- mother did speak with clinician River- refer to her note. 3. Aftercare planning Greater than 50% of the session was spent on counseling and/or coordination of care Reason for contiued inpatient stay Substantial Risk for: inability to function, rapid decompensation and med/psych decompensation
[2021-04-06 18:00] VITALS: PULSE 101; RESP 16; TEMP 36.3; O2SAT 100
[2021-04-06 21:28] VITALS: BP 147/67; PULSE 92; TEMP 36.9; O2SAT 100
[2021-04-06] MEDS: OLANZapine 10 MG TABLET 20 MG PO (21:33)
[2021-04-06] MEDS: Acetaminophen 325 MG TABLET 650 MG PO (21:37)
[2021-04-06] MEDS: Cyclobenzaprine HCl 10 MG TABLET PO (21:37)
[2021-04-06] MEDS: LORazepam 1 MG TABLET PO (21:37)
[2021-04-06] MEDS: hydrOXYzine HCL 25 MG TABLET PO (21:39)
[2021-04-07 06:00] VITALS: BP 120/67; PULSE 90; RESP 20; TEMP 36.9; O2SAT 100
[2021-04-07] MEDS: Cyanocobalamin (Vitamin B-12) 1,000 MCG TABLET 1000 MCG PO (08:52)
[2021-04-07] MEDS: Cholecalciferol (Vitamin D3) 25 MCG TABLET PO (08:52)
[2021-04-07] MEDS: Ibuprofen 800 MG TABLET PO ×3 (08:52→18:04)
--- NOTE | 2021-04-07 16:04 | P.PNPSI_ITS ---
Subjective Subjective Date of Service: 04/07/21 Reason For Visit: Psychosisi Subjective Notes: Section 7 Interim History: Pt much less irritable, less paranoid. She does note that something was off with her but mostly think is lack of sleep and food. She does report feeling internal sense of anxiety which did not let her get out of the house. She notes that she has been referred to rheumatology, joint pain, and other abnormalities. We discussed doing some blood work here but she declined. She reports eating much better. She denies suicidal or homicidal ideation. She is much less paranoid towards mother. She has been more visible in the unit, social with select peers. Medication Compliance: Yes Side effects from medications: No Attending Groups: Intermittent Review of Systems Reports behavioral changes Psychiatric: Reports abnormal sleep pattern, Reports behavioral changes, Reports change in appetite, Reports depression, Reports difficulty concentrating, Reports auditory hallucinations, Reports irritability, Reports anhedonia, Reports mood swings, Reports visual hallucinations and Reports hallucinations Mental Status Exam Mental Status Exam Narrative: Appearance: casually dressed, improved hygiene, in NAD Behavior:cooperative, less irritable, less guarded psychomotor: no agitation or retardation noted Speech:clear, regular rate/rhythm/volume, spontaneous Thought process:more organized and coherent Thought content:less paranoia Mood: rested Affect: less labile SI:denies HI:denies VH/AH:none Delusions:less paranoid/persecutory delusions Memory/cog: alert, improving Diagnostics Vital Signs (24Hr): Vital Signs - 24 hr 04/06/21 18:00 04/06/21 21:28 04/07/21 06:00 Temperature 97.4 F 98.4 F 98.4 F Pulse Rate 101 H 92 90 Respiratory Rate 16 20 Blood Pressure 147/67 H 120/67 Pulse Oximetry 100 100 100 Body Mass Index 23.8 Labs Results: 03/31/21 05:46 03/31/21 05:46 Imaging Radiology Impressions: ITS Impressions Chest X-Ray 04/03/21 16:16 IMPRESSION: No acute disease. Medications Medications Current Medications Generic Name Dose Route Start Last Admin Trade Name Freq PRN Reason Stop Dose Admin Acetaminophen 650 mg 03/31/21 23:06 04/06/21 21:37 Acetaminophen 325 Mg Tablet PO 650 mg Q6H PRN Administration Headache/Pain Mild Scale (1-3) Al Hydroxide/Mg Hydroxide 30 ml 03/31/21 23:06 Magnesium Hydrox/Alum Hydrox 30 Ml Oral.Susp PO Q6H PRN Heartburn/Nausea Cyanocobalamin 1,000 mcg 04/01/21 09:00 04/07/21 08:52 Cyanocobalamin (Vitamin B-12) 1,000 Mcg Tablet PO 1,000 mcg DAILY DEVEN Administration Cyclobenzaprine HCl 10 mg 04/04/21 16:44 04/06/21 21:37 Cyclobenzaprine Hcl 10 Mg Tablet PO 10 mg BEDTIME PRN Administration Muscle Spasm Hydroxyzine HCl 25 mg 03/31/21 17:29 04/06/21 21:39 Hydroxyzine Hcl 25 Mg Tablet PO 25 mg BEDTIME PRN Administration Anxiety Ibuprofen 800 mg 04/03/21 17:00 04/07/21 12:39 Ibuprofen 800 Mg Tablet PO 800 mg TIDWM DEVEN Administration Lorazepam 1 mg 04/05/21 20:02 04/06/21 21:37 Lorazepam 1 Mg Tablet PO 1 mg Q4H PRN Administration Anxiety Magnesium Hydroxide 30 ml 03/31/21 23:06 Milk Of Magnesia 30 Ml Oral.Susp PO DAILY PRN Constipation Multivitamins/Minerals 1 tab 04/01/21 09:00 04/07/21 08:52 Multivitamin With Minerals Tablet PO 1 tab DAILY DEVEN Administration Olanzapine 5 mg 04/03/21 10:05 Olanzapine 5 Mg Tablet PO Q6H PRN psychosis Olanzapine 20 mg 04/04/21 21:00 04/06/21 21:33 Olanzapine 10 Mg Tablet PO 20 mg BEDTIME DEVEN Administration Pharmacy Consult 1 each 03/31/21 17:22 Consult Rx Perform Med Rec MISCELLANE ONCE PRN Consult order Trazodone HCl 50 mg 03/31/21 23:06 Trazodone Hcl 50 Mg Tablet PO BEDTIME PRN Insomnia Vitamin D 25 mcg 04/01/21 09:00 04/07/21 08:52 Cholecalciferol (Vitamin D3) 25 Mcg Tablet PO 25 mcg DAILY DEVEN Administration Allergies Allergies Allergy/AdvReac Type Severity Reaction Status Date / Time No Known Allergies Allergy Verified 03/30/21 18:16 Assessment & Plan Assessment & Plan (1) Bipolar 1 disorder, mixed, severe: Status: Acute Code(s): F31.63 - Bipolar disorder, current episode mixed, severe, without psychotic features Assessment and Plan: Ms. Herrmann is a 36 year-old woman brought to [facility] [place] by [employer] as pt was outside her door screaming reporting her daughter was , which is not the case. Pt p resented as labile, paranoid, guarded, disorganized behavior. 1. Continue Olanzapine 10mg po qhs- will titrate as clinically indicated. 2. obtain collateral information- mother did speak with clinician River- refer to her note. 3. Aftercare planning Greater than 50% of the session was spent on counseling and/or coordination of care Reason for contiued inpatient stay Substantial Risk for: inability to function and rapid decompensation
[2021-04-07 20:15] VITALS: BP 132/90; PULSE 82; RESP 17; TEMP 36.8; O2SAT 98
[2021-04-07] MEDS: Cyclobenzaprine HCl 10 MG TABLET PO (20:33)
[2021-04-07] MEDS: LORazepam 1 MG TABLET PO (20:33)
[2021-04-07] MEDS: hydrOXYzine HCL 25 MG TABLET PO (20:34)
[2021-04-07] MEDS: Acetaminophen 325 MG TABLET 650 MG PO (20:34)
[2021-04-07] MEDS: OLANZapine 10 MG TABLET 20 MG PO (20:34)
[2021-04-08 09:10] VITALS: BP 141/95; PULSE 112; RESP 18; TEMP 36.6; O2SAT 98
[2021-04-08] MEDS: Cholecalciferol (Vitamin D3) 25 MCG TABLET PO (09:17)
[2021-04-08] MEDS: Cyanocobalamin (Vitamin B-12) 1,000 MCG TABLET 1000 MCG PO (09:17)
[2021-04-08] MEDS: Ibuprofen 800 MG TABLET PO ×2 (09:17→12:43)
--- NOTE | 2021-04-08 12:48 | PM.PSYDC ---
DS: Providers Provider Date of Service: 04/08/21 Date of admission: 03/31/21 23:12 Primary care physician: Unknown Physician DS: Diagnosis Discharge Diagnosis (1) Bipolar 1 disorder, mixed, severe: Status: Acute DS: Medications Discharge Medications Home Medications: Previous Rx's Medication Instructions Recorded cholecalciferol (vitamin D3) 25 25 mcg PO DAILY #30 tab 04/08/21 mcg (1,000 unit) tablet cyanocobalamin (vitamin B-12) 1,000 mcg PO DAILY #30 tab 04/08/21 1,000 mcg tablet (Vitamin B-12) cyclobenzaprine 10 mg tablet 10 mg PO BEDTIME PRN #10 tab 04/08/21 ibuprofen 800 mg tablet 800 mg PO TIDWM #90 tab 04/08/21 olanzapine 20 mg tablet 20 mg PO BEDTIME #30 tab 04/08/21 Mental Status Exam Mental Status Exam Narrative: Appearance: casually dressed, improved hygiene, in NAD Behavior:cooperative, less irritable, less guarded psychomotor: no agitation or retardation noted Speech:clear, regular rate/rhythm/volume, spontaneous Thought process:more organized and coherent Thought content:no signs of psychosis, future oriented, hopeful Mood: rested Affect: congruent, non labile SI:denies HI:denies VH/AH:none Delusions:no paranoid/persecutory delusions Memory/cog: alert, oriented x 3. grossly intact to conversational testing. Data Imaging Diagnostic Imaging Impressions Chest X-Ray 04/03/21 16:16 IMPRESSION: No acute disease. DS: Summary Hospital Course Hospital Course: HPI: Ms. Herrmann is a 36 year-old woman who was brought to [facility] ED by police after neighbors called due to pt screaming outside her house about her daughter being . Apparently, pt has not been able to sleep for several days, not eating well nor able to care for self with electricity shut off for about a month. Per records, pt has been presenting increasingly more paranoid and back in August she brought her infant to [facility] stating she was sick and given concerns in terms of pt able to care for the infant, her daughter was removed from her care and placed in kinship placement with child's paternal grandfather. In the ED, utox not completed only BAL which was negative. Pt was agitated, demanding to leave while in ED requiring IM haldol 5mg and ativan 2mg. On the unit, pt presents as very frustrated, irritable, not cooperative. She reports she suspects members of father's child trying to hurt her and her daughter. She blames them for this hospitalization. Pt presented as very suspicious. She reports when blood was drawn, she was being injected with medications. Pt reports she is fine. When asked about electricity, she states is his landlord who shut it off as pt believes landlord trying to push her out of apartment. She denies SI/HI. She reports her daughter was wrongly taken off her care by DCF and she believes this was also some sort of conspiracy. Several times during interview, pt states I'm not crazy, I'm not paranoid, this is wrong (referring to being in psychiatric unit against her will), now I won't be able to have my daughter back. She has been mostly in bed, irritable at times but also crying inconsolably. Past Psychiatric History: Post 03/14/20. Hospital Course On the unit, Ms. Herrmann was admitted on a CV and placed on 15 minutes checks for safety. Pt did not interact much nor wanted to speak with this fiction and nonfiction writer prose due to increase paranoia delusions. However, after discussing risks, benefits and alternative treatment options, pt agreed to start Olanzapine, which she tolerated well and was titrated to 20mg po qhs. Her affect gradually appeared much less paranoid, suspicious. Pt did show slightly improve insight in that she could see how some of delusions were not true. She agreed that she needed psychiatric care as something was off. Pt denied suicidal or homicidal ideation. Collateral information gathered from mother who reported that pt appeared in much improve condition in that she was more logical, coherent, less paranoia, less irritability and labile mood. Pt needs to follow up with rhematology for r/o of lupus. She declined having any of initial tests done while in unit but agreed with plan to follow up outpatient. There were no incidences of disruptive behaviors nor use of restraints. Status at Discharge Cognitive/behavioral status at discharge: Pt much less paranoid, less guarded and suspicious. Much less irritability. No SI/HI. Less VH/AH. Improved sleep/appetite. Functional status at discharge: independent ambulation Overall status at discharge: patient is progressing back to baseline Time Spent with Patient Time attestation: Total time spent providing and/or coordinating discharge services: Discharge Plan Discharge Patient Disposition: Home, Self-Care Discharge Diagnosis: Bipolar type 1 disorder Referrals: Therapy/Psychiatry [Other] (Complete and return intake packet to the office, or scan/fax. Include a copy of your license and insurance card. Client registration will call you to set up an intake appointment once all paperwork is received) [facility] [Provider Group] - Tomorrow (11am ) Physician,Unknown [Primary Care Provider] - 1 Week Discharge Medications: New cyclobenzaprine 10 mg Tablet 10 mg PO BEDTIME PRN (Reason: Muscle Spasm) Qty: 10 RF: 0 ibuprofen 800 mg Tablet 800 mg PO TIDWM Qty: 90 RF: 0 olanzapine 20 mg tablet 20 mg PO BEDTIME Qty: 30 RF: 0 cyanocobalamin (vitamin B-12) [Vitamin B-12] 1,000 mcg Tablet 1,000 mcg PO DAILY Qty: 30 RF: 0 cholecalciferol (vitamin D3) 25 mcg (1,000 unit) Tablet 25 mcg PO DAILY Qty: 30 RF: 0 Discontinued dextroamphetamine-amphetamine 20 mg tablet 30 mg PO DAILY RF: 0 cyanocobalamin (vitamin B-12) 1,000 mcg Tablet 1,000 mcg PO DAILY RF: 0 cholecalciferol (vitamin D3) 25 mcg (1,000 unit) Tablet 25 mcg PO DAILY RF: 0 Discharge Orders: Discharge Order (Routine); Ordered 04/08/21 Ordered By: Richa Lebron Diet: regular diet Activity on Discharge: As tolerated Stand Alone Forms: Patient Portal Discharge page, Community Support Care Plan Goals: 1. Maintain mood 2. No SI/HI Health Concerns: Follow up with PCP, rheumatology Plan of Treatment: 1. Take medications as prescribed 2. Go to nearest ED or call 911 in event of emergency Assessment: Much less labile, no paranoia, less psychosis. Patient Instructions: Insomnia (DC) Discharge Date/Time: 04/08/21 14:03
== END 2021-04-08 14:03 | disposition home or self-care (01) | DRG 753 ==
LOC: HO.ED 03-31 16:15 → HO.PADLT16 03-31 23:18
PROVIDERS: Nurse Practitioner Primary Care; Physician Assistant Medical; Admitting Provider Psychiatry & Neurology Psychiatry; Emergency Provider Internal Medicine; Visit Provider Social Worker
DX: F31.63 Bipolar disorder, current episode mixed, severe, without psychotic features (principal); F12.20 Cannabis dependence, uncomplicated; Z20.822 Contact with and (suspected) exposure to COVID-19; Z79.1 Long term (current) use of non-steroidal anti-inflammatories (NSAID); Z79.899 Other long term (current) drug therapy; Z91.5 Personal history of self-harm
CPT/HCPCS: 0241U; 36415; 71046; 80053; 82077; 84702; 85025; 93005; 99285; J2060

== ENCOUNTER 2021-05-14 01:58 | Emergency (ER) | payer MEDICAID, SELFPAY ==
--- NOTE | 2021-05-14 02:05 | ED_ITS ---
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, CALM AND COOPERATIVE NOW Time Seen by Provider: 05/14/21 02:02 Source: patient Mode of arrival: EMS Limitations: no limitations History of Present Illness HPI Narrative: Patient sniffed cocaine/heroin was unresponsive and was given Narcan 8 mg by her boyfriend patient vomited in bed patient admits using cocaine Related Data Previous Rx's Medication Instructions Recorded cholecalciferol (vitamin D3) 25 25 mcg PO DAILY #30 tab 04/08/21 mcg (1,000 unit) tablet cyanocobalamin (vitamin B-12) 1,000 mcg PO DAILY #30 tab 04/08/21 1,000 mcg tablet (Vitamin B-12) cyclobenzaprine 10 mg tablet 10 mg PO BEDTIME PRN #10 tab 04/08/21 ibuprofen 800 mg tablet 800 mg PO TIDWM #90 tab 04/08/21 olanzapine 20 mg tablet 20 mg PO BEDTIME #30 tab 04/08/21 Allergies Allergy/AdvReac Type Severity Reaction Status Date / Time No Known Allergies Allergy Verified 03/30/21 18:16 Review of Systems Review of Systems: Yes all other systems are reviewed and are negative [facility] Past Medical History Medical History Anxiety Depression Osteoporosis PTSD (post-traumatic stress disorder) Social History Social History Household Members: Unknown / Unable to assess Housing: Unknown / Unable to assess Unable to assess alcohol history related to: Refusing to respond Patient Tobacco Use Status: Refuse Tobacco use screen Advance Directives: No Advance Directives Information Provided: Yes service: No Sexual orientation: Did not discuss. Physical Exam Vital Signs: Vital Signs: Last Vital Signs Temp 97 F 05/14/21 02:37 Pulse 90 05/14/21 02:37 Resp 18 05/14/21 02:37 BP 117/87 05/14/21 02:37 Pulse Ox 100 05/14/21 02:37 Body Mass Index 24.9 Appearance: Alert. Oriented X3. No acute distress. Eyes: PERRLA, No Nystagmus ENT: Pharynx normal. Oral Mucosa moist Neck: Normal inspection. Neck supple. CVS: Normal heart rate and rhythm. Pulses normal. Respiratory: No respiratory distress. Equal air entry bilateral, no wheez ing/rales/rhonchi Abdomen: Soft and nontender. Bowel sounds are present, no mass palpable, no CVA tenderness Skin: Skin warm and dry. Normal skin color. Normal skin turgor. Extremities: No lower extremity edema. No calf tenderness Neuro: Oriented X 3. No motor deficit. No sensory deficit.No cerebellar signs , cranial nerves II-XII intact MDM - Overdose MDM Narrative Medical decision making narrative: Patient with cocaine/heroin overdose refused to give the urine sample alert awake oriented x3 saturating 100% room air discharge patient home Discharge Plan Discharge Clinical Impression: Substance abuse Patient Disposition: Home, Self-Care Instructions: Polysubstance Abuse (ED) Additional Instructions: Follow-up with detox Prescriptions: No Action cyclobenzaprine 10 mg Tablet 10 mg PO BEDTIME PRN (Reason: Muscle Spasm) Qty: 10 RF: 0 ibuprofen 800 mg Tablet 800 mg PO TIDWM Qty: 90 RF: 0 olanzapine 20 mg tablet 20 mg PO BEDTIME Qty: 30 RF: 0 cyanocobalamin (vitamin B-12) [Vitamin B-12] 1,000 mcg Tablet 1,000 mcg PO DAILY Qty: 30 RF: 0 cholecalciferol (vitamin D3) 25 mcg (1,000 unit) Tablet 25 mcg PO DAILY Qty: 30 RF: 0 Interventions: ED Discharge Assessment Last Done: 05/14/21 05:34 Discharge Date/Time: 05/14/21 05:35
[2021-05-14 02:23] VITALS: BP 135/86; PULSE 86; O2SAT 97
[2021-05-14 02:37] VITALS: BP 117/87; PULSE 90; RESP 18; TEMP 36.1; O2SAT 100; BMI 24.9
--- NOTE | 2021-05-14 03:03 | PC.NURSE ---
PT TO ED VIA AMBULANCE AFTER GIVEN NARCAN 8MG. PT VOMITING UPON ARRIVAL AND SCREAMING AT STAFF STATING IM AN EMT AND I KNOW WHAT I NEED, I NEED WATER ZOFRAN WAS GIVEN TO PT AND PT REFUSED ZOFRAN. PT WAS SCREAMING AT NURSING AND SPITTING ON THE FLOOR. SECURITY NOTIFIED AND IS AT DOORWAY. PT UP AND YELLING OUT THE DOOR.
--- NOTE | 2021-05-14 04:10 | PC.NURSE ---
PT GOT UP AND WALKED TO RESTROOM WITH STEADY EVEN GAIT AND DRANK OUT OF SINK. PT WENT BACK TO ROOM AND VOMITED ALL OVER FLOOR. PT WAS TOLD SEVERAL TIMES NOT TO DRINK WATER. PT REFUSING AND YELLING AT STAFF AND SPITTING ALL OVER FLOOR. PT IS NOT COOPERATIVE AND DOES NOT LISTEN TO INSTRUCTIONS. TO D/C PT AT 0500.
== END 2021-05-14 05:35 | disposition home or self-care (01) ==
PROVIDERS: Emergency Provider Internal Medicine
DX: T40.5X1A Poisoning by cocaine, accidental (unintentional), initial encounter (principal); T40.1X1A Poisoning by heroin, accidental (unintentional), initial encounter; F11.10 Opioid abuse, uncomplicated; F14.10 Cocaine abuse, uncomplicated; Y92.9 Unspecified place or not applicable; Z79.899 Other long term (current) drug therapy; Z71.51 Drug abuse counseling and surveillance of drug abuser
CPT/HCPCS: 99283

== ENCOUNTER 2023-12-21 19:42 | Inpatient (IN) | payer MEDICAID, SELFPAY ==
--- NOTE | ~2023-12-21 | CT_ITS ---
EXAMINATION: CT ABDOMEN AND PELVIS WITH CONTRAST CLINICAL INFORMATION: Subcutaneous mass status-post multiple abdominal surgeries. COMPARISON: None available. TECHNIQUE: Multidetector volumetric images were obtained from the superior aspect of the liver through the pubic symphysis following administration 85 mL of Omnipaque 350 intravenous contrast. Sagittal and coronal reformatted images were obtained on the technologist's workstation. Oral contrast: No This CT examination was performed using dose optimization techniques as appropriate, variously including the following: *Automated exposure control *Adjustment of mA and/or kV according to patient size (this includes techniques or standardized protocols for targeted exams where dose is matched to indication/reason for exam; i.e. extremities or head) *Use of iterative reconstruction technique DLP: 259 mGy-cm FINDINGS: LUNG BASES: The visualized lung bases are unremarkable. Bilateral breast implants are noted. LIVER, GALLBLADDER, AND BILIARY TREE: The liver is normal in size, shape, and attenuation. No focal hepatic lesion or biliary ductal dilatation is present. The gallbladder is unremarkable with no evidence of radiopaque gallstones, gallbladder wall thickening, or obvious pericholecystic inflammatory changes. PANCREAS: Unremarkable. SPLEEN: Unremarkable. ADRENAL GLANDS: Unremarkable. KIDNEYS AND URETERS: The kidneys are normal in size, shape, and attenuation. No hydronephrosis, hydroureter, or calculi seen. A 1.9 cm benign, simple exophytic mid right renal cyst is seen, which requires no imaging follow-up. No perinephric stranding. BLADDER: Unremarkable. GASTROINTESTINAL TRACT: There is a large stool burden. No obstruction, free intraperitoneal air or abscess is seen. No significant diverticulosis or diverticulitis is seen. The vermiform appendix appears normal. ABDOMINAL WALL: No significant hernia is appreciated. There is a healed vertical midline incision. At the cephalad aspect of this incision (3:28 and 7:52), there is a 2.2 x 1.5 x 2.9 cm ill-defined high attenuation subcutaneous focus, which likely represents scarring and possibly evolving hematoma. LYMPH NODES: Normal. VASCULAR: Unremarkable. PELVIC VISCERA: The uterus and adnexa are unremarkable. OSSEOUS STRUCTURES: Unremarkable. CT/CT abdomen pelvis w IV con IMPRESSION: 1. A healed vertical midline incision is seen. At the cephalad aspect of this incision, a 2.9 cm in maximal diameter ill-defined hyperdense subcutaneous focus is seen, which likely represents scarring and possibly evolving hematoma. Recommend management on a clinical basis. 2. There is a large stool burden, suggesting possible constipation. No thelma bowel obstruction is seen. Fleischner guidelines were followed.
[2023-12-21 20:14] VITALS: RESP 16; BMI 18.6
--- NOTE | 2023-12-21 20:46 | ED_ITS ---
HPI - General Adult General Chief complaint: Psychiatric Symptoms Stated complaint: crisis.uncooperative Time Seen by Provider: 12/21/23 19:53 Source: patient Mode of arrival: ambulatory Limitations: no limitations History of Present Illness HPI narrative: 38 yold female with pmh of Bipolar and cannabis use disorder brought to ED for acting paranoid, manic and being delusional. Patient is under section 12 and se en in the community by [facility]. Patient also was brought in by police. 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 Related Data Home Medications ?Medication ?Instructions ?Recorded ?Confirmed dextroamphetamine-amphetamine ER 25 mg PO DAILY 12/22/23 12/22/23 25 mg capsule,3 bead,ext release 24hr Allergies Allergy/AdvReac Type Severity Reaction Status Date / Time No Known Allergies Allergy Verified 12/21/23 20:25 Review of Systems Review of Systems: Patient herself denies any complaints. As per section 12 patient is manic delusional and paranoid Yes all other systems are reviewed and are negative [facility] Past Medical History Medical History Anxiety Depression Osteoporosis PTSD (post-traumatic stress disorder) Social History Social History Household Members: Unknown / Unable to assess Housing: Unknown / Unable to assess Unable to assess alcohol history related to: Refusing to respond Patient Tobacco Use Status: Refuse Tobacco use screen Advance Directives: No Advance Directives Information Provided: No Do you have a plan to hurt others: Clear service: No Sexual orientation: Did not discuss. Physical Exam ED Vital Signs: Vital Signs - 24 hr 12/23/23 09:48 Respiratory Rate 19 Oxygen Delivery Method Room Air BMI result Body Mass Index 18.6 Const Orientation/consciousness: oriented to person, oriented to place, oriented to time and patient oriented x3 HENMT Head: Yes normal to inspection, Yes No palpable skull fracture present, Yes normocephalic and Yes atraumatic Eyes General: appearance normal, both eyes and all related structures Neck Neck: Yes normal visual inspection, Yes full ROM, Yes no lymphadenopathy, Yes no meningeal signs, Yes trachea midline, Yes supple, No anterior neck swelling and No tender Chest Chest palpation & inspection: normal inspection of the chest and normal palpation of entire chest wall Resp Effort & Inspection: normal respiratory effort and able to speak in complete sentences Auscultation: clear to auscultation bilaterally Cardio Jugular venous distension: no JVD Heart sounds: S1 normal heart sound present and S2 normal heart sound present GI Other: As per nurse, patient has chronic abdominal wound that is healthy pink granulated with slight serosanguineous discharge. Patient refused for me to evaluate her abdomen would not lift up count. Patient herself denies wound is infected states she is any into has had 4 surgeries on abdomen last 1 was 3 months ago. General: No CVA tenderness and Yes no CVA tenderness Back/Spine/Pelvis Back: no CVA tenderness, No CVA tenderness and No back tenderness Skin General skin exam: no rashes or lesions noted, elasticity normal and turgor normal Neuro General: oriented to person, oriented to place, oriented to time, patient oriented x3, gait normal, tone normal, moves all extremities, Normal light touch and pain sensation, no meningeal signs, no focal motor deficits, CN's II-XI intact bilaterally and normal sensation to monofilament Extrem General: Yes normal to inspection, Yes full ROM and Yes capillary refill normal Psych Other: manic Appearance: grossly normal and well [facility] Course Course Course Narrative: 223pm 12/23/23 the patient still will not allow us to test her status I have tried to explain that we need to know this for medications etc. she also states she has poor wound healing and has medical issues but that she follows up with her doctors and her plastic surgeon which is not true the office states she is not compliant and they cannot figure out how she dehisced this many times. I have told her I cannot medically clear her and that we need labs, the CARE team has also gotten involved. She is aware that in order to get labs given chronic wound poor healing her reports of longstanding physical illness that she will not elaborate on, of unknown duration - will not allow testing I cannot safely say there is not a medical issue. I have asked, psychiatry, RN, CARE team and she states over and over no but her reasoning goes back to her plastic surgeon checked labs in September which makes no sense and does not help us if there is an issue now given it is December. She then again talks about another topic. At this time I am going to give her IM haldol and IM ativan as I feel I cannot safely place her on a psychiatric unit without knowing if there are any underlying medical issues or if she is . Reevaluation(s) Reevaluation #1: physician observation continued: patient remains a bed search is calm and cooperative Time: 15:56 Reevaluation #2: spoke to plastic surgery office otilia carpenter and breast augmentation november 2022 - otilia carpenter moderate wound dehisced brought back to OR last January to close the wound and re-do the area she opened again. She healed by secondary intention. In September she had scar revision. Has opened back up since and has not healed does not follow up is noncompliant they have not seen her in 6+ weeks. 1220pm observation continued 1221pm pending conversations about follow up in regards medically clearing - Richa GIBSON involved . Reevaluation #3: I cannot medically clear at this time given her dehisced wounds, concern for if she does not comply with labs, wound check I am going to have to give her IM medications in order to medically clear her. There are safety issues that If we do not do labs I will not be able to say she is not and after talking to her plastic surgeon and her lack of wound care follow up I need to be able to look at her wounds Additional Reevaluation(s): 1245pm the patient did let me look at her wounds - orange sized in nature healthy granulation tissue no abscess or signs of infection, Beth mcneal present. She is still refusing labs tells me she has surgery planned again and labs with plastic surgeon which sounds different from what the plastic surgeon told me as she is not compliant with follow up. Medications Administered Discontinued Medications Generic Name Dose Route Start Last Admin Trade Name Raymond PRN Reason Stop Dose Admin Acetaminophen 650 mg 12/22/23 20:05 12/22/23 20:54 Acetaminophen 325 Mg Tablet PO 12/22/23 20:06 Not Given ONCE ONE Acetaminophen 650 mg 12/22/23 20:35 12/22/23 23:51 Acetaminophen 325 Mg Tablet PO 12/22/23 20:36 650 mg ONCE ONE Administration Diphenhydramine HCl 50 mg 12/21/23 19:48 12/21/23 22:20 Diphenhydramine Hcl 50 Mg/Ml Vial IM 12/21/23 19:49 Not Given ONCE ONE Haloperidol Lactate 5 mg 12/21/23 19:48 12/21/23 22:20 Haloperidol Lactate 5 Mg/Ml Vial IM 12/21/23 19:49 Not Given STAT STA Lorazepam 2 mg 12/21/23 19:48 12/21/23 22:21 Lorazepam 2 Mg/Ml Vial IM 12/21/23 19:49 Not Given STAT STA Medical Decision Making Medical Decision Making MDM Narrative: 38-year-old female with history of bipolar presents to the ED manic delusional in the intensity was uncooperative and aggressive and agitated and Benadryl Haldol was ordered. They were held denied given patient calm down. Presently patient refused to give labs. Will come back and evaluate DrRegan Murrell. We will call and speak to patient's mother. Patient already has a placement by [facility]. 3:53am: Spoke with patient's mother Fatemeh who states patient has been paranoid and bipolar. She states patient has not been sleeping. She states patient had not been compliant with the meds. Mother thinks patient should be admitted for psych inpatient. Mother states patient is 6 weeks . Mother states due to manic phase patient is not controlling her money well. Still waiting for labs. Signed out to Dr. John 09:00 Patient's labs are pending. Patient's care was turned over to my colleague, Dr. Hampton 20:41 Start physician observation The patient has refused blood work. The patient is on a Section 12 placed by [facility] for kelsey and paranoid delusions. The patient continues to refuse to let staff draw her blood and give us a urine sample. She was seen by the care team and the care team is requesting that the patient get a psychiatric evaluation for capacity and to to help determine disposition. I did order psychiatric consult which will be done tomorrow. Patient will remain in the emergency department Behavioral Health Unit on a Section 12 until disposition can be determined or until patient's symptoms improve over time. Differential Diagnosis Differential Diagnoses: The differential diagnosis associated with the presentation includes (manic) Admission/Observation Consideration of admission/observation: Escalation of care including admission/observation considered Consult Healthcare Provider Management of the patient was discussed with: Lift Supervisor (Care team) Independent Historian Clinical information obtained from an independent historian. History obtained from or confirmed by: Parent (mother) and Other (patient) External Record Review External record reviewed: Other (prior visits) Discharge Plan Discharge Clinical Impression: Bipolar 1 disorder, mixed, severe Patient Disposition: Still a Patient Prescriptions: No Action dextroamphetamine-amphetamine 25 mg capsule, ER triphasic 24 hr 25 mg PO DAILY Interventions: [place]-Suicide Risk Severity Scale Last Done: 12/23/23 05:04 Print Language: Armenian
--- NOTE | 2023-12-21 21:19 | PC.NURSE ---
phone call from police vik Rubin's caregiver and sisters advocate ? [phone]
--- NOTE | 2023-12-21 23:12 | PC.NURSE ---
t/w was informed that client had dressing on abdomen, t/w had received a phone call shortly thereafter that client had three surgeries within the last year and t/w went to take down dressing and assess risk to client, patient took down what appeared to be an abd pad with cloth tape holding it on, a lateral rectangle covering a 4 X 6 area. underneath was what appeared to be a round, older wound whose bed had pale pink granulated appearing tissue with small amounts (cumulative size coverage of drainage quarter size) of light canseco/beige drainage around perimeter of wound bed. t/w offered to cleanse but patient seemed suspicious regarding this and also the gauze i was using to cover wound. patient allowed it to be covered with gauze and cloth tape. informed provider.
--- NOTE | 2023-12-22 02:48 | PC.NURSE ---
[facility] [place] [facility] [place] [phone]
[2023-12-22 04:36] VITALS: RESP 16
[2023-12-22 07:19] VITALS: PULSE 90; RESP 20; O2SAT 95
--- NOTE | 2023-12-22 08:22 | PC.NURSE ---
Assumed care of patient at 0645, patient resting on bed in 1, unwilling to engage in meaningful conversation, when asked for labs/urine sample patient refusing stating that she does not need to be here and will not be doing those things. Patient then demanded equatorial guinean toast, pancakes, eggs, good and juice for breakfast . Elvira medical technical writer informed patient that we do not have that here and that the breakfast trays provided are what we have at this time. Patient ate some and went back to bed. Per previous RN, patient is apparently , unsure of how far along, unable to verify due to patient not participating in care. Patient refusing to provide information regarding to this RN Also, per previous RN, patient has an abdominal bandage on that has a circular wound under measuring about 2-3 inches in size. Patient refused to let this RN examine wound
--- NOTE | 2023-12-22 09:25 | PC.NURSE ---
RE; med rec unable to confirm medications with patient, as patient is unwilling to engage in conversation with this RN All medications in med rec appear to be outdated at this time except for Adderall, which was added to med rec
--- NOTE | 2023-12-22 14:10 | MHC.EDTECH ---
pt has refused vitas, labs and urine for the 3rd time. rn aware
--- NOTE | 2023-12-22 17:22 | PC.NURSE ---
Patient continues to refuse vital signs, blood work and other assessment. Patient reported to this RN that we are starving her. This RN offered her additional food, patient refused. patient was offered two lunches, one cheeseburger and the other grilled cheese, both of which patient declined. patient continues to not allow this RN to examine abdomen
--- NOTE | 2023-12-22 19:56 | PC.NURSE ---
patient resting in her room, made some requests of staff (asked for Tylenol, which was conveyed to provider) patient appears in no distress.
[2023-12-22] MEDS: Acetaminophen 325 MG TABLET 650 MG PO (23:51)
--- NOTE | 2023-12-23 06:15 | MHC.EDTECH ---
pt refusing all vital signs and UA. RN AWARE.
--- NOTE | 2023-12-23 07:15 | PC.NURSE ---
PT IS RESTING RESP EVEN AND UNLABORED. WILL CONTINUE TO MONITOR.
--- NOTE | 2023-12-23 07:30 | PC.NURSE ---
PT A/O, AMB (I) GAIT STEADY TO BATHROOM AND BTB. PT ADAMANTLY REFUSED TO GIVE U/A.
--- NOTE | 2023-12-23 07:59 | PC.NURSE ---
PT ADAMANTLY REFUSED TO GIVE URINE. AMB (I) GAIT STEADY TO BATHROOM AND BTB. WILL CONTINUE TO MONITOR.
--- NOTE | 2023-12-23 09:45 | PC.NURSE ---
PT IS IN THE COMMON ROOM ENGAGING WITH ANOTHER PT. PT IS CALM. REFUSED HER AM MED. WILL CONTINUE TO MONITOR..
[2023-12-23 09:48] VITALS: RESP 19
--- NOTE | 2023-12-23 09:55 | PC.NURSE ---
PT IS REQUESTING TO BE D/C'D HOME STATING THAT SHE IS NOT SI/HI/HALLUCINATING AND SHE IS FIT TO GO HOME. WILL FOLLOW UP WITH THE CARE TEAM.
--- NOTE | 2023-12-23 10:15 | PC.NURSE ---
PT DENIES ANY PAIN/DISC/SI/HI/HALLUCINATION. PT REFUSE TO HAVE ABD AREA ASSESS/EVAL AT THIS TIME BY RN. PT STATED THAT SHE HAD THE ABD AREA/WOUND ASSESSED LAST NIGHT BY RN. WILL CONTINUE TO MONITOR.
--- NOTE | 2023-12-23 10:51 | PM.PSYCN ---
History of Present Illness Date of Service: 12/23/2023 Chief Complaint: crisis.uncooperative Discussed with referring provider: Yes Sources of Information: patient interviewed, chart reviewed and crisis/core team assessment reviewed HPI Narrative: Ms. Herrmann is a 38 year-old woman who was brought on [id number] after she was assessed by [facility] crisis team (unclear who call them) due to pt presenting as increasingly more paranoid towards neighbors, trying forcibly to gain entry into neighbor's apartment and they had to barricade themselves. Pt apparently was also witnessed hanging her entire body in 2nd story floor and had broken several windows. Pt is known through previous admission to back in 03/2021 with similar presentation. In the ED, pt superficially cooperative. She reports her neighbors have stolen from her and she also thinks one of them has stolen her identity. She reports I haven't pointed fingers at anyone, but I filed police reports. Pt denies that she tried to gain access forcibly. She also denies she has broken multiple windows. She reports there is only one broken window which she broke by accident trying to hand a curtain. She does report recently she had test and it was positive. She reports she is not sure what to do about the . She also reports she has had 2 abdominal surgeries she states as complications of prior plastic surgeries. She reports she sees plastic surgeon in [place]. She does have wound dressing. She has declined labs and test. She states this is because she came here involuntarily and she has had labs recently with her outpatient providers and does not think she needs more labs. She reports right now she is not taking any medications because she is worried about effects on . This documentation writer tried to educate that there are some medications that she may still be able to take, especially because if untreated her Bipolar Disorder would get worse. She states she does not think she has Bipolar Disorder. She denies hx hallucinations and delusions despite previous admission here when she was symptomatic. Past Psychiatric History: Post 03/14/20. OP: Jamie Ball- pt reports is her PCP prescribing psych meds. IP: unclear if inpt at [facility] in Aug 2020; 03/2021 Hx of SIBS-cutting Past trial: lithium, olanzapine, caplyta, adderall [facility] Medical History Anxiety Depression Osteoporosis PTSD (post-traumatic stress disorder) Family History: mental illness and addiction-mother Social History: Raised by mother. 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 children-13 yo son in [place], 1 yo armani in [place] Trauma History: yes Diagnostics Vital Signs (24Hr): Vital Signs - 24 hr 12/23/23 09:48 Respiratory Rate 19 Oxygen Delivery Method Room Air BMI result Body Mass Index 18.6 Mental Status Exam Mental Status Exam Narrative: Appearance: wearing hospital gown, fair hygiene, in NAD Behavior: superficially cooperative, somewhat guarded Psychomotor: no agitation or retardation noted Speech: mostly clear, regular rate/rhythm/volume spontaneous TP: mostly linear, no loose associations TC: paranoid ideas towards neighbors Mood: fine Affect: constricted and guarded SI: denies HI: denies VH/AH: no overt symptoms but suspect AH Delusions: paranoid delusions Insight/judgment: limited when it comes to mental illness and symptoms Memory/cog: alert, oriented x 3. Medications Allergies Allergies Allergy/AdvReac Type Severity Reaction Status Date / Time No Known Allergies Allergy Verified 12/21/23 20:25 Assessment & Plan Assessment & Plan (1) Bipolar 1 disorder, mixed, severe: Status: Acute Code(s): F31.63 - Bipolar disorder, current episode mixed, severe, without psychotic features Plan Ms. Herrmann is a 38 year-old woman with hx of Bipolar Disorder type 1 who was brought on sect 12a by [facility] crisis after she was assessed due to increased paranoid delusions, accusing neighbors of stealing from her, trying to forcibly enter neighbors apartment and breaking windows, seen hanging out of window yelling. Here pt continues to present with paranoid delusions, but denies that she tried to enter neighbor's apartment forcibly. She also denies breaking windows intentionally. She reports recent test, which is positive. She reports she is not sure what she plans to do with . she is refusing labs and test here in the hospital. 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 She states she sees plastic surgeon in [place]. PLAN 1. inpt level of care for stabilization, containment and safety. 2. may need collateral information from her OP providers as to nature of surgery Total time managing care of this patient today 35____ minutes. Patient educated on: diagnosis and medication risk/benefits
--- NOTE | 2023-12-23 10:59 | PC.NURSE ---
WARE FINISHER (WILLA) AT BEDSIDE, PT AWARE OF PLAN OF CARE.
--- NOTE | 2023-12-23 12:23 | MHC.EDTECH ---
@12:11PM CALL PLACED TO PLASTIC SURGEON [facility] @ [phone] @ [facility] REQUEST, DR BARR TAKES OVER CALL.
--- NOTE | 2023-12-23 12:41 | PC.NURSE ---
DR. BARR AT BEDSIDE, PT AWARE OF PLAN OF CARE.
--- NOTE | 2023-12-23 13:00 | MHC.EDTECH ---
Per verbal orders from DO, abd wound was dressed with abd pad and tegaderm. abd wound was pink, with negative swelling and negative drainage. pt tolerated dressing well, RN aware
[2023-12-23] MEDS: LORazepam 2 MG/ML VIAL IM (14:55)
[2023-12-23] MEDS: Haloperidol Lactate 5 MG/ML VIAL IM (14:56)
--- NOTE | 2023-12-23 15:15 | PC.NURSE ---
this RN resumed care of pt 1500. pt recently administered w/ medication via IM by previous RN d/t being uncooperative and allowing interventions to be performed. pt currently a&ox4 but refusing for vitals, labs, and urine to be obtained. no sob/wob noted. respirations even and unlabored. plan of care ongoing.
--- NOTE | 2023-12-23 15:37 | MHC.EDTECH ---
Patient refused labs 2053
--- NOTE | 2023-12-23 16:00 | PC.NURSE ---
pt continues to refuse for lab/urine/vitals to be obtained. respirations remain even and unlabored. plan of care ongoing.
[2023-12-23 16:25] VITALS: BP 122/77; PULSE 89; RESP 18; TEMP 36.4; O2SAT 98
--- NOTE | 2023-12-23 16:30 | PC.NURSE ---
aside from refusing vitals to be obtained, pt stayed calm/cooperative throughout medication restraint assessment. no sob/wob noted. respirations remain even and unlabored.
--- NOTE | 2023-12-23 16:53 | PC.NURSE ---
after conversating w/ pt and educating her on importance of labs being obtained - pt allowed for labs to be obtained willingly. sent to lab by tech. UA still pending at this time. plan of care ongoing.
[2023-12-23 16:56] LABS: MANUAL DIFF FLAG NO
[2023-12-23 17:06] LABS: Basophils Percent Auto 0.5 % (0-2); Eosinophils Absolute Auto 0.1 X10*3/uL (0.0-0.4); Hematocrit 36.7 % (37.0-47.0); Hemoglobin 12.2 g/dl (12.0-16.0); Imm Gran Abs Auto 0.02 X10*3/uL (0.00-0.03); Imm Gran Pct Auto 0.3 % (0.0-0.4); Lymphocytes Absolute Auto 1.5 X10*3/uL (1.2-4.9); Lymphocytes Percent Auto 21.2 % (20-40); Mean Corpuscular HGB Conc 33.2 g/dl (31.0-35.0); Mean Corpuscular Hemoglobin 31.5 pg (27.0-33.0); Mean Corpuscular Volume 94.8 fL (80.0-98.0); Monocytes Absolute Auto 0.4 X10*3/uL (0.1-1.2); Monocytes Percent Auto 5.6 % (2-11); Neutrophils Absolute Auto 5.2 x10*3/uL (2.0-8.3); Neutrophils Percent Auto 71.4 % (45-73); Platelet Count 259 X10*3/uL (160-400); Red Blood Count 3.87 X10*6/uL (4.20-5.50); Red Cell Distribution Width 13.5 % (11.0-16.0); White Blood Count 7.3 X10*3/uL (4.8-10.8)
[2023-12-23 17:32] LABS: Alanine Aminotransferase 9 U/L (0-31); Albumin Level 3.7 g/dL (3.5-5.0); Alkaline Phosphatase 43 U/L (39-117); Anion Gap 12 (12-20); Aspartate Amino Transferase 9 U/L (5-31); Bilirubin Direct 0.1 mg/dL (0.0-0.5); Bilirubin Total 0.3 mg/dL (0.0-1.0); Blood Urea Nitrogen 14 mg/dL (9-16); Calcium 9.2 mg/dL (8.4-10.2); Carbon Dioxide 25 mmol/L (22-29); Chloride 110 mmol/L (96-108); Creatinine Clr Calc Pharmacy 86.9; Estimated Glomerular Filt Rate > 60; Ethanol < 10 mg/dL; Glucose Random 107 mg/dL (60-115); HCG Quantitative < 2 mIU/mL; Potassium 3.7 mmol/L (3.3-5.1); Sodium 143 mmol/L (135-145); Total Protein 6.1 g/dL (6.5-8.0)
[2023-12-23 17:42] LABS: TSH reflex Free T4 0.14 uIU/mL (0.32-4.0)
[2023-12-23 18:27] LABS: Free T4 (Free Thyroxine) 0.76 ng/dL (0.71-1.85)
--- NOTE | 2023-12-23 19:24 | PC.NURSE ---
patient appears to remain at rest respirations are even and unlabored patient appears in no distress.
--- NOTE | 2023-12-24 03:03 | MHC.EDTECH ---
Pt up for bathroom. Refused to provide a urine sample and refused vitals.
[2023-12-24 06:09] VITALS: BP 118/72; PULSE 79; RESP 16; TEMP 36.4; O2SAT 100
--- NOTE | 2023-12-24 07:09 | PC.NURSE ---
Assumed care of patient. Patient is observed resting quietly in bed. No signs of distress, breathing is even and unlabored. Will continue plan of care.
[2023-12-24 12:50] VITALS: BP 131/102; PULSE 81; RESP 17; TEMP 36.6; O2SAT 99
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
[2023-12-24 13:08] VITALS: BMI 20.4
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
--- NOTE | 2023-12-24 14:57 | MHC.CLN ---
NUTRITION CONSULT FOR WEIGHT LOSS OF ABOUT 40# . REVIEW OF WEIGHT HX SHOWS WEIGHTS: 12/24/23=50.5 KG (ON ADULT PSYCH) 05/14/21=70 KG (WEIGHT IN ED) 03/30/21=58.967 (ON ADULT PSYCH) WHEN COMPARING WEIGHTS FROM ADULT PSYCH, SHOWS WEIGHT LOSS -18# X APPROX 3 YEARS. DOES NOT APPEAR TO HAVE SIGNIFICANT WEIGHT OLSS. RD WILL FOLLOW UP FOR PO INTAKE.
[2023-12-24] MEDS: Acetaminophen 325 MG TABLET 650 MG PO ×2 (14:58→21:04)
[2023-12-24 16:28] LABS: Appearance Urine Clear; Color Urine Yellow; Glucose Urine UA Negative (Negative); Leukocyte Esterase Urine Negative (Negative); Nitrite Urine Negative (Negative); PH 7.5 (5.0-9.0); Urine Blood Negative (Negative); Urine Ketones Negative (Negative); Urine Protein Negative (Neg-Trace)
[2023-12-24 20:30] VITALS: BP 146/88; PULSE 95; RESP 16; TEMP 37.1; O2SAT 98
[2023-12-24] MEDS: clonazePAM 0.5 MG TABLET PO (20:37)
[2023-12-25 07:39] VITALS: BP 124/67; PULSE 85; RESP 16; TEMP 36.5; O2SAT 99
[2023-12-25] MEDS: clonazePAM 0.5 MG TABLET PO ×2 (08:44→20:02)
[2023-12-25] MEDS: Acetaminophen 325 MG TABLET 650 MG PO ×2 (09:03→20:03)
[2023-12-25] MEDS: Ibuprofen 400 MG TABLET PO ×2 (12:51→20:02)
--- NOTE | 2023-12-25 13:47 | P.PNPSI_ITS ---
Subjective Subjective Date of Service: 12/25/23 Reason For Visit: crisis Subjective Notes: Conditional Voluntary Interim History: The nursing staff reported the patient had been admitted due to noncompliance, she was been refusing Risperdal and Depakote since she reportedly does not work. The patient brought 3 tablets of Caplyta and his mother is going to bring a refill. Since it has not formulary I ordered as known formulary and the patient will take her own medications. On interview the patient denies new symptoms. Mental Status Exam Mental Status Exam Patient Appearance: Appropriate Patient Orientation: Person and Situation Level of Consciousness: Awake and Appropriate Patient Behavior: Appropriate and Passive Mood Description: Calm Affect Description: Constricted Patient Cognition Impaired: Yes Ability to Follow Directions: Good Speech Pattern: Clear Hallucinations: None Delusions: Ideas of Reference Thought Process: Racing and Distracted Thought Content: positive for Circumstantial Judgement: Fair Diagnostics Vital Signs (24Hr): Vital Signs - 24 hr 12/24/23 20:30 12/25/23 07:39 Temperature 98.7 F 97.7 F Pulse Rate 95 85 Respiratory Rate 16 16 Blood Pressure 146/88 H 124/67 Pulse Oximetry 98 99 Oxygen Delivery Method Room Air Room Air BMI result Body Mass Index 20.4 Labs 12/23/23 16:51 12/23/23 16:51 Labs: Laboratory Results - last 48 hr 12/23/23 12/24/23 16:51 16:05 WBC 7.3 RBC 3.87 L Hgb 12.2 Hct 36.7 L MCV 94.8 MCH 31.5 MCHC 33.2 RDW 13.5 Plt Count 259 MPV 12.0 Immature Gran % (Auto) 0.3 Neut % (Auto) 71.4 Lymph % (Auto) 21.2 [place] % (Auto) 5.6 Eos % (Auto) 1.0 Baso % (Auto) 0.5 Lymph # (Auto) 1.5 [place] # (Auto) 0.4 Eos # (Auto) 0.1 Baso # (Auto) 0.0 Abs Immat Gran (auto) 0.02 Absolute Neuts (auto) 5.2 Absolute Nucleated RBC 0.000 Nucleated RBC % (auto) 0.0 Sodium 143 Potassium 3.7 Chloride 110 H Carbon Dioxide 25 Anion Gap 12 BUN 14 Creatinine 0.73 Estim Creat Clear Calc 86.9 Estimated GFR > 60 Random Glucose 107 Calcium 9.2 Total Bilirubin 0.3 Direct Bilirubin 0.1 AST 9 ALT 9 Alkaline Phosphatase 43 Total Protein 6.1 L Albumin 3.7 TSH 0.14 L Free T4 0.76 Beta HCG, Quant < 2 Urine Color Yellow Urine Appearance Clear Urine pH 7.5 Ur Specific [place] 1.010 Urine Protein Negative Urine Glucose (UA) Negative Urine Ketones Negative Urine Blood Negative Urine Nitrite Negative Ur Leukocyte Esterase Negative Ethyl Alcohol < 10 Medications Medications Current Medications Acetaminophen (Acetaminophen 325 Mg Tablet) 650 mg PO Q6H PRN PRN Reason: Headache/Pain Mild Scale (1-3) Last Admin: 12/25/23 09:03 Dose: 650 mg Al Hydroxide/Mg Hydroxide (Magnesium Hydrox/Alum Hydrox 30 Ml Oral.Susp) 30 ml PO Q6H PRN PRN Reason: Heartburn/Nausea Clonazepam (Clonazepam 0.5 Mg Tablet) 0.5 mg PO BID [facility] Last Admin: 12/25/23 08:44 Dose: 0.5 mg Divalproex Sodium (Divalproex Sodium Er 250 Mg Tab.Er.24h) 250 mg PO BEDTIME [facility] Last Admin: 12/24/23 20:39 Dose: Not Given Hydroxyzine HCl (Hydroxyzine Hcl 25 Mg Tablet) 25 mg PO Q6H PRN PRN Reason: Anxiety Ibuprofen (Ibuprofen 400 Mg Tablet) 400 mg PO Q4H PRN PRN Reason: Pain, Mild (Pain Scale 1-3) Last Admin: 12/25/23 12:51 Dose: 400 mg Magnesium Hydroxide (Milk Of Magnesia 30 Ml Oral.Susp) 30 ml PO DAILY PRN PRN Reason: Constipation Nicotine (Nicotine 21 Mg Patch.Td24) 21 mg TRANSDERMA DAILY [facility] Last Admin: 12/25/23 08:48 Dose: Not Given Nicotine Polacrilex (Nicotine Polacrilex 2 Mg Gum) 4 mg BUCCAL Q2H PRN PRN Reason: Nicotine Cravings Pt Own(Caplyta 21 Mg ()) 21 mg PO DAILY [facility] Risperidone (Risperidone 1 Mg Tablet) 1 mg PO BID [facility] Last Admin: 12/25/23 08:50 Dose: Not Given Trazodone HCl (Trazodone Hcl 50 Mg Tablet) 50 mg PO BEDTIME MRX1 PRN PRN Reason: Insomnia Allergies Allergies Allergy/AdvReac Type Severity Reaction Status Date / Time No Known Allergies Allergy Verified 12/21/23 20:25 Assessment & Plan Assessment & Plan (1) Bipolar 1 disorder, mixed, severe: Status: Acute Code(s): F31.63 - Bipolar disorder, current episode mixed, severe, without psychotic features (2) PTSD (post-traumatic stress disorder): Status: Acute Code(s): F43.10 - Post-traumatic stress disorder, unspecified Plan Patient is a 38 year old female with hx of Bipolar d/o and PTSD who was brought to [facility] via ambulance on a Section 12 d/t decompensated mental status . Plan: Section 12B 15 minute safety checks referral to outpatient therapist and prescriber encourage medication compliance obtain collateral consult to wound care Start: Depakote ER 250mg PO bedtime Klonopin 0.5mg PO BID Risperidal 1mg PO BID discharge planning December 24, adding Caplyta 21 mg p.o. daily Reason for continued inpatient stay Substantial Risk for: inability to function, rapid decompensation and med/psych decompensation Time Spent With Patient Time: Total time managing care of this patient today _20___ minutes.
[2023-12-25 19:50] VITALS: BP 159/96; PULSE 88; RESP 16; TEMP 36.8; O2SAT 97
[2023-12-25] MEDS: traZODone HCL 50 MG TABLET PO (20:03)
[2023-12-25 20:25] VITALS: BP 139/95
[2023-12-25 20:55] VITALS: BP 146/79
[2023-12-26 08:30] VITALS: BP 138/65; PULSE 83; RESP 18; TEMP 36.7; O2SAT 98
[2023-12-26] MEDS: clonazePAM 0.5 MG TABLET PO ×2 (08:43→20:13)
[2023-12-26] MEDS: Ibuprofen 400 MG TABLET PO ×3 (08:43→20:13)
[2023-12-26] MEDS: hydrOXYzine HCL 25 MG TABLET PO ×2 (09:06→15:23)
--- NOTE | 2023-12-26 11:56 | HO.PSYCHPN ---
Subjective Subjective Date of Service: 12/26/23 Reason For Visit: crisis Subjective Notes: Conditional Voluntary Interim History: The nursing staff reported the patient has refused labs and she has refused Risperdal and Depakote stated he does not work. We started today her regular medicationCaplyta 25 mg p.o. daily. She asked to restarted her amphetamines. On interview denies new symptoms pleasant, cooperative Mental Status Exam Mental Status Exam Patient Appearance: Appropriate Patient Orientation: Person and Situation Level of Consciousness: Awake and Appropriate Patient Behavior: Guarded and Passive Mood Description: Withdrawn Affect Description: Constricted Patient Cognition Impaired: Yes Ability to Follow Directions: Good Speech Pattern: Clear Hallucinations: None Delusions: Not Present Thought Process: Distracted and Evasive Thought Content: positive for [place] and positive for Circumstantial Judgement: Poor Diagnostics Vital Signs (24Hr): Vital Signs - 24 hr 12/25/23 19:50 12/25/23 20:25 12/25/23 20:55 Temperature 98.3 F Pulse Rate 88 Respiratory Rate 16 Blood Pressure 159/96 H 139/95 H 146/79 H Pulse Oximetry 97 Oxygen Delivery Method Room Air 12/26/23 08:30 Temperature 98.1 F Pulse Rate 83 Respiratory Rate 18 Blood Pressure 138/65 Pulse Oximetry 98 Oxygen Delivery Method Room Air BMI result Body Mass Index 20.4 Labs 12/23/23 16:51 12/23/23 16:51 Labs: Laboratory Results - last 48 hr 12/24/23 16:05 Urine Color Yellow Urine Appearance Clear Urine pH 7.5 Ur Specific [place] 1.010 Urine Protein Negative Urine Glucose (UA) Negative Urine Ketones Negative Urine Blood Negative Urine Nitrite Negative Ur Leukocyte Esterase Negative Medications Medications Current Medications Acetaminophen (Acetaminophen 325 Mg Tablet) 650 mg PO Q6H PRN PRN Reason: Headache/Pain Mild Scale (1-3) Last Admin: 12/25/23 20:03 Dose: 650 mg Al Hydroxide/Mg Hydroxide (Magnesium Hydrox/Alum Hydrox 30 Ml Oral.Susp) 30 ml PO Q6H PRN PRN Reason: Heartburn/Nausea Clonazepam (Clonazepam 0.5 Mg Tablet) 0.5 mg PO BID [facility] Last Admin: 12/26/23 08:43 Dose: 0.5 mg Divalproex Sodium (Divalproex Sodium Er 250 Mg Tab.Er.24h) 250 mg PO BEDTIME [facility] Last Admin: 12/25/23 20:30 Dose: Not Given Hydroxyzine HCl (Hydroxyzine Hcl 25 Mg Tablet) 25 mg PO Q6H PRN PRN Reason: Anxiety Last Admin: 12/26/23 09:06 Dose: 25 mg Ibuprofen (Ibuprofen 400 Mg Tablet) 400 mg PO Q4H PRN PRN Reason: Pain, Mild (Pain Scale 1-3) Last Admin: 12/26/23 08:43 Dose: 400 mg Magnesium Hydroxide (Milk Of Magnesia 30 Ml Oral.Susp) 30 ml PO DAILY PRN PRN Reason: Constipation Nicotine (Nicotine 21 Mg Patch.Td24) 21 mg TRANSDERMA DAILY [facility] Last Admin: 12/26/23 08:07 Dose: Not Given Nicotine Polacrilex (Nicotine Polacrilex 2 Mg Gum) 4 mg BUCCAL Q2H PRN PRN Reason: Nicotine Cravings Pt Own(Caplyta 21 Mg ()) 21 mg PO DAILY [facility] Last Admin: 12/26/23 08:43 Dose: 21 mg Risperidone (Risperidone 1 Mg Tablet) 1 mg PO BID [facility] Last Admin: 12/26/23 08:55 Dose: Not Given Trazodone HCl (Trazodone Hcl 50 Mg Tablet) 50 mg PO BEDTIME MRX1 PRN PRN Reason: Insomnia Last Admin: 12/25/23 20:03 Dose: 50 mg Allergies Allergies Allergy/AdvReac Type Severity Reaction Status Date / Time No Known Allergies Allergy Verified 12/21/23 20:25 Assessment & Plan Assessment & Plan (1) Bipolar 1 disorder, mixed, severe: Status: Acute Code(s): F31.63 - Bipolar disorder, current episode mixed, severe, without psychotic features (2) PTSD (post-traumatic stress disorder): Status: Acute Code(s): F43.10 - Post-traumatic stress disorder, unspecified Plan Patient is a 38 year old female with hx of Bipolar d/o and PTSD who was brought to [facility] via ambulance on a Section 12 d/t decompensated mental status . Plan: Section 12B 15 minute safety checks referral to outpatient therapist and prescriber encourage medication compliance obtain collateral consult to wound care Start: Depakote ER 250mg PO bedtime Klonopin 0.5mg PO BID Risperidal 1mg PO BID discharge planning December 24, adding Caplyta 21 mg p.o. daily December 25 continue same treatment Reason for continued inpatient stay Substantial Risk for: inability to function, rapid decompensation and med/psych decompensation Time Spent With Patient Time: Total time managing care of this patient today __20__ minutes.
[2023-12-26] MEDS: Acetaminophen 325 MG TABLET 650 MG PO (15:23)
[2023-12-26] MEDS: Docusate Sodium 100 MG CAPSULE PO (16:05)
[2023-12-26 17:44] LABS: Alanine Aminotransferase 21 U/L (0-31); Albumin Level 4.6 g/dL (3.5-5.0); Alkaline Phosphatase 53 U/L (39-117); Anion Gap 17 (12-20); Aspartate Amino Transferase 11 U/L (5-31); Bilirubin Total 0.4 mg/dL (0.0-1.0); Blood Urea Nitrogen 16 mg/dL (9-16); Calcium 10.1 mg/dL (8.4-10.2); Carbon Dioxide 27 mmol/L (22-29); Chloride 104 mmol/L (96-108); Cholesterol 174 mg/dL (<200); Creatinine Clr Calc Pharmacy 84.6; Estimated Glomerular Filt Rate > 60; Glucose Fasting 69 mg/dL (60-99); HDL Cholesterol 72 mg/dL (>40); LDL Cholesterol Calculated 54 mg/dL (<100); Potassium 4.1 mmol/L (3.3-5.1); Sodium 144 mmol/L (135-145); Total Protein 7.5 g/dL (6.5-8.0); Triglycerides 240 mg/dL (<150)
[2023-12-26] MEDS: traZODone HCL 50 MG TABLET PO (20:13)
[2023-12-26 20:18] VITALS: BP 116/68; PULSE 90; RESP 16; TEMP 37; O2SAT 98
[2023-12-27 07:47] VITALS: BP 116/55; PULSE 79; RESP 14; TEMP 36.6; O2SAT 99
[2023-12-27] MEDS: clonazePAM 0.5 MG TABLET PO ×2 (08:20→20:35)
[2023-12-27] MEDS: hydrOXYzine HCL 25 MG TABLET PO ×3 (08:30→21:09)
[2023-12-27] MEDS: Ibuprofen 400 MG TABLET PO ×2 (08:30→20:36)
--- NOTE | 2023-12-27 09:53 | HO.PSYCHPN ---
Subjective Subjective Date of Service: 12/27/23 Reason For Visit: crisis Subjective Notes: Section 12B Interim History: Reviewed with . Social with peers. attending groups. Calm, cooperative. Pt reports feeling good today; pt stated, I've learned a lot of coping and happy I came here. I don't want to start taking Depakote and will talk to my outpatient prescriber and figure out meds with them . Pt is future oriented, working on goals list. pt denies SI/HI/VH/AH. Medication Compliance: Intermittent Side effects from medications: No Attending Groups: Yes Review of Systems Constitutional: Reports as per HPI Eyes: Reports as per HPI Reports as per HPI Cardiovascular: Reports as per HPI Respiratory: Reports as per HPI Gastrointestinal: Reports as per HPI Musculoskeletal: Reports as per HPI Skin/Breast: Reports as per HPI Reports as per HPI Psychiatric: Reports as per HPI Endocrine: Reports as per HPI Hematologic/Lymphatic: Reports as per HPI Allergic/Immunologic: Reports as per HPI Mental Status Exam Mental Status Exam Narrative: Pt is alert and oriented; behavior is cooperative, friendly and calm; dressed in casual attire; mood is described as good ; eye contact appropriate; Speech is normal rate, volume and prosody and not pressured; thought process is organized and goal directed; Thought content is on tx; denies SI/HI/VH/AH. Diagnostics Vital Signs (24Hr): Vital Signs - 24 hr 12/26/23 20:18 12/27/23 07:47 Temperature 98.6 F 97.9 F Pulse Rate 90 79 Respiratory Rate 16 14 Blood Pressure 116/68 116/55 L Pulse Oximetry 98 99 Oxygen Delivery Method Room Air Room Air BMI result Body Mass Index 20.4 Labs 12/23/23 16:51 12/26/23 17:16 Labs: Laboratory Results - last 48 hr 12/26/23 17:16 Sodium 144 Potassium 4.1 Chloride 104 Carbon Dioxide 27 Anion Gap 17 BUN 16 Creatinine 0.72 Estim Creat Clear Calc 84.6 Estimated GFR > 60 Fasting Glucose 69 Calcium 10.1 D Total Bilirubin 0.4 AST 11 ALT 21 Alkaline Phosphatase 53 Total Protein 7.5 Albumin 4.6 Triglycerides 240 H Cholesterol 174 LDL Cholesterol, Calc 54 HDL Cholesterol 72 Medications Medications Current Medications Acetaminophen (Acetaminophen 325 Mg Tablet) 650 mg PO Q6H PRN PRN Reason: Headache/Pain Mild Scale (1-3) Last Admin: 12/26/23 15:23 Dose: 650 mg Al Hydroxide/Mg Hydroxide (Magnesium Hydrox/Alum Hydrox 30 Ml Oral.Susp) 30 ml PO Q6H PRN PRN Reason: Heartburn/Nausea Clonazepam (Clonazepam 0.5 Mg Tablet) 0.5 mg PO BID [facility] Last Admin: 12/27/23 08:20 Dose: 0.5 mg Divalproex Sodium (Divalproex Sodium Er 250 Mg Tab.Er.24h) 250 mg PO BEDTIME [facility] Last Admin: 12/26/23 22:23 Dose: Not Given Docusate Sodium (Docusate Sodium 100 Mg Capsule) 100 mg PO BID PRN PRN Reason: Constipation Last Admin: 12/26/23 16:05 Dose: 100 mg Hydroxyzine HCl (Hydroxyzine Hcl 25 Mg Tablet) 25 mg PO Q6H PRN PRN Reason: Anxiety Last Admin: 12/27/23 08:30 Dose: 25 mg Ibuprofen (Ibuprofen 400 Mg Tablet) 400 mg PO Q4H PRN PRN Reason: Pain, Mild (Pain Scale 1-3) Last Admin: 12/27/23 08:30 Dose: 400 mg Magnesium Hydroxide (Milk Of Magnesia 30 Ml Oral.Susp) 30 ml PO DAILY PRN PRN Reason: Constipation Nicotine (Nicotine 21 Mg Patch.Td24) 21 mg TRANSDERMA DAILY [facility] Last Admin: 12/27/23 08:35 Dose: Not Given Nicotine Polacrilex (Nicotine Polacrilex 2 Mg Gum) 4 mg BUCCAL Q2H PRN PRN Reason: Nicotine Cravings Pt Own(Caplyta 21 Mg ()) 21 mg PO DAILY [facility] Last Admin: 12/27/23 08:20 Dose: 21 mg Risperidone (Risperidone 1 Mg Tablet) 1 mg PO BID [facility] Last Admin: 12/27/23 08:35 Dose: Not Given Trazodone HCl (Trazodone Hcl 50 Mg Tablet) 50 mg PO BEDTIME MRX1 PRN PRN Reason: Insomnia Last Admin: 12/26/23 20:13 Dose: 50 mg Allergies Allergies Allergy/AdvReac Type Severity Reaction Status Date / Time No Known Allergies Allergy Verified 12/21/23 20:25 Assessment & Plan Assessment & Plan (1) Bipolar 1 disorder, mixed, severe: Status: Acute Code(s): F31.63 - Bipolar disorder, current episode mixed, severe, without psychotic features (2) PTSD (post-traumatic stress disorder): Status: Acute Code(s): F43.10 - Post-traumatic stress disorder, unspecified Plan Patient is a 38 year old female with hx of Bipolar d/o and PTSD who was brought to [facility] via ambulance on a Section 12 d/t decompensated mental status . Plan: Section 12B 15 minute safety checks referral to outpatient therapist and prescriber encourage medication compliance obtain collateral consult to wound care Start: Depakote ER 250mg PO bedtime Klonopin 0.5mg PO BID Risperidal 1mg PO BID discharge planning December 24, adding Caplyta 21 mg p.o. daily December 25 continue same treatment 12/26: Social with peers. attending groups. Calm, cooperative. Pt reports feeling good today; pt stated, I've learned a lot of coping and happy I came here. I don't want to start taking Depakote and will talk to my outpatient prescriber and figure out meds with them . Pt is future oriented, working on goals list. pt denies SI/HI/VH/AH. Hospialist consult for lump on abdomen. Continue current tx plan. Patient educated on: diagnosis, medication risk/benefits and therapeutic strategies Informed Consent: understands Reason for continued inpatient stay Substantial Risk for: med/psych decompensation Time Spent With Patient Time: Total time managing care of this patient today _20___ minutes.
--- NOTE | 2023-12-27 14:43 | PM.EVENT ---
Event Note Date of Service: 12/27/23 Event Note: 38 year old female with recent abdominoplasty (Dr. Kingston Zaidi [place]) december 14 and with complication from retained sutures and necrosis of abdominal wall. She is concerned about epigastric lump. There is mild ttp without overlying erythema or warmth. The lump does not reduce and does not appear consistent with hernia. She has open, but well healing clean wound of the mid abdomen covered in post op dressing. Pt would benefit from surgical consult. Discussed with psychiatrist. Would defer imaging to surgery. Thank you for allowing me to participate in this consult. Signing off at this time. Please do not hesitate to call for further questions. Time Spent With Patient Time: Total time managing care of this patient today ____ minutes.
--- NOTE | 2023-12-27 14:58 | MHC.CLN ---
F/U VISITED WITH PATIENT ON THE UNIT. VERY PLEASANT AN ENGAGED IN CONVERSATION. REPORTS THAT HAS BEEN EATING VERY WELL. SELECTED HEALTHY SNACKS FROM UNIT KITCHEN. STATED THAT WANTS TO GAIN MUSCLE AND GET STRONGER. DOES NOT WANT NUTRITIONAL SUPPLEMENT. NO ADDITIONAL NUTRITION INTERVENTIONS AT THIS TIME.
[2023-12-27] MEDS: Acetaminophen 325 MG TABLET 650 MG PO ×2 (15:18→20:35)
--- NOTE | 2023-12-27 15:51 | PC.NURSE ---
Hospitalist consult completed on this date. Per hospitalist, patient requires surgical consult for wound and possible hernia/mass above area of surgical wound. RN spoke to surgery department on this date. Per surgery, consult will be completed on this date or tomorrow, 12/28/23.
[2023-12-27] MEDS: Docusate Sodium 100 MG CAPSULE PO (16:31)
[2023-12-27 20:00] VITALS: BP 137/61; PULSE 97; RESP 16; TEMP 36.9; O2SAT 97
[2023-12-27] MEDS: traZODone HCL 50 MG TABLET PO (20:36)
[2023-12-28 07:33] VITALS: BP 108/57; PULSE 82; RESP 14; TEMP 36.8; O2SAT 99
[2023-12-28] MEDS: clonazePAM 0.5 MG TABLET PO ×2 (08:35→20:25)
[2023-12-28] MEDS: hydrOXYzine HCL 25 MG TABLET PO ×3 (08:35→20:25)
[2023-12-28] MEDS: Docusate Sodium 100 MG CAPSULE PO (08:35)
[2023-12-28] MEDS: Acetaminophen 325 MG TABLET 650 MG PO ×2 (08:35→14:21)
[2023-12-28] MEDS: Ibuprofen 400 MG TABLET PO ×2 (09:49→20:23)
--- NOTE | 2023-12-28 10:28 | P.PNPSI_ITS ---
Subjective Subjective Date of Service: 12/28/23 Reason For Visit: crisis Subjective Notes: Conditional Voluntary Interim History: Reviewed in team; pt feeling more stable; hopeful about future; focused on discharge tomorrow; wants to attend [facility] after discharge. Social with peers. attending groups. Calm, cooperative. Pt reports feeling good today; pt stated, I've learned a lot of coping and happy I came here. working on goals list. pt denies SI/HI/VH/AH. Medication Compliance: Yes Side effects from medications: No Attending Groups: Yes Review of Systems Acute medical concerns: No Medical Review of Systems: unchanged Review of Systems Review of Systems Patient herself denies any complaints. As per section 12 patient is manic delusional and paranoid Yes all other systems are reviewed and are negative Constitutional: Reports as per HPI Eyes: Reports as per HPI Reports as per HPI Cardiovascular: Reports as per HPI Respiratory: Reports as per HPI Gastrointestinal: Reports as per HPI Musculoskeletal: Reports as per HPI Skin/Breast: Reports as per HPI Reports as per HPI Psychiatric: Reports as per HPI Endocrine: Reports as per HPI Hematologic/Lymphatic: Reports as per HPI Allergic/Immunologic: Reports as per HPI Mental Status Exam Mental Status Exam Narrative: Pt is alert and oriented; behavior is cooperative, friendly and calm; dressed in casual attire; mood is described as good ; eye contact appropriate; Speech is normal rate, volume and prosody and not pressured; thought process is organized and goal directed; Thought content is on tx; denies SI/HI/VH/AH. Patient Appearance: Appropriate Patient Orientation: Person and Situation Level of Consciousness: Awake and Appropriate Patient Behavior: Guarded and Passive Mood Description: Withdrawn Affect Description: Constricted Patient Cognition Impaired: Yes Ability to Follow Directions: Good Speech Pattern: Clear Judgement: Fair Diagnostics Vital Signs (24Hr): Vital Signs - 24 hr 12/27/23 20:00 12/28/23 07:33 Temperature 98.4 F 98.3 F Pulse Rate 97 82 Respiratory Rate 16 14 Blood Pressure 137/61 108/57 L Pulse Oximetry 97 99 Oxygen Delivery Method Room Air Room Air BMI result Body Mass Index 20.4 Labs 12/23/23 16:51 12/26/23 17:16 Labs: Laboratory Results - last 48 hr 12/26/23 17:16 Sodium 144 Potassium 4.1 Chloride 104 Carbon Dioxide 27 Anion Gap 17 BUN 16 Creatinine 0.72 Estim Creat Clear Calc 84.6 Estimated GFR > 60 Fasting Glucose 69 Calcium 10.1 D Total Bilirubin 0.4 AST 11 ALT 21 Alkaline Phosphatase 53 Total Protein 7.5 Albumin 4.6 Triglycerides 240 H Cholesterol 174 LDL Cholesterol, Calc 54 HDL Cholesterol 72 Medications Medications Current Medications Acetaminophen (Acetaminophen 325 Mg Tablet) 650 mg PO Q6H PRN PRN Reason: Headache/Pain Mild Scale (1-3) Last Admin: 12/28/23 08:35 Dose: 650 mg Al Hydroxide/Mg Hydroxide (Magnesium Hydrox/Alum Hydrox 30 Ml Oral.Susp) 30 ml PO Q6H PRN PRN Reason: Heartburn/Nausea Clonazepam (Clonazepam 0.5 Mg Tablet) 0.5 mg PO BID [facility] Last Admin: 12/28/23 08:35 Dose: 0.5 mg Divalproex Sodium (Divalproex Sodium Er 250 Mg Tab.Er.24h) 250 mg PO BEDTIME [facility] Last Admin: 12/27/23 22:23 Dose: Not Given Docusate Sodium (Docusate Sodium 100 Mg Capsule) 100 mg PO BID PRN PRN Reason: Constipation Last Admin: 12/28/23 08:35 Dose: 100 mg Hydroxyzine HCl (Hydroxyzine Hcl 25 Mg Tablet) 25 mg PO Q6H PRN PRN Reason: Anxiety Last Admin: 12/28/23 08:35 Dose: 25 mg Ibuprofen (Ibuprofen 400 Mg Tablet) 400 mg PO Q4H PRN PRN Reason: Pain, Mild (Pain Scale 1-3) Last Admin: 12/28/23 09:49 Dose: 400 mg Magnesium Hydroxide (Milk Of Magnesia 30 Ml Oral.Susp) 30 ml PO DAILY PRN PRN Reason: Constipation Nicotine Polacrilex (Nicotine Polacrilex 2 Mg Gum) 4 mg BUCCAL Q2H PRN PRN Reason: Nicotine Cravings Pt Own(Caplyta 21 Mg ()) 21 mg PO DAILY [facility] Last Admin: 12/28/23 08:35 Dose: 21 mg Risperidone (Risperidone 1 Mg Tablet) 1 mg PO BID [facility] Last Admin: 12/28/23 08:38 Dose: Not Given Trazodone HCl (Trazodone Hcl 50 Mg Tablet) 50 mg PO BEDTIME MRX1 PRN PRN Reason: Insomnia Last Admin: 12/27/23 20:36 Dose: 50 mg Allergies Allergies Allergy/AdvReac Type Severity Reaction Status Date / Time No Known Allergies Allergy Verified 12/21/23 20:25 Assessment & Plan Assessment & Plan (1) Bipolar 1 disorder, mixed, severe: Status: Acute Code(s): F31.63 - Bipolar disorder, current episode mixed, severe, without psychotic features (2) PTSD (post-traumatic stress disorder): Status: Acute Code(s): F43.10 - Post-traumatic stress disorder, unspecified Plan Patient is a 38 year old female with hx of Bipolar d/o and PTSD who was brought to [facility] ER via ambulance on a Section 12 d/t decompensated mental status . Plan: Section 12B 15 minute safety checks referral to outpatient therapist and prescriber encourage medication compliance obtain collateral consult to wound care Start: Depakote ER 250mg PO bedtime Klonopin 0.5mg PO BID Risperidal 1mg PO BID discharge planning December 24, adding Caplyta 21 mg p.o. daily December 25 continue same treatment 12/26: Social with peers. attending groups. Calm, cooperative. Pt reports feeling good today; pt stated, I've learned a lot of coping and happy I came here. I don't want to start taking Depakote and will talk to my outpatient prescriber and figure out meds with them . Pt is future oriented, working on goals list. pt denies SI/HI/VH/AH. Hospialist consult for lump on abdomen. Continue current tx plan. 12/27 continue treatment plan; if continues to do well will discharge tomorrow Reason for continued inpatient stay Substantial Risk for: inability to function Time Spent With Patient Time: Total time managing care of this patient today ____ minutes.
[2023-12-28] MEDS: iohexoL 350 MG/ML 100 ML INFUS..BTL IV (13:47)
--- NOTE | 2023-12-28 14:52 | HO.WOUND ---
Wound Consult: Initial 38yr old?female admitted to [facility] on 12/24/23 12:17 - See progress notes and H&P for detailed history.? Wound consult placed for nonhealing abdominal wound secondary to abdominal surgery.? Patient agreeable to assessment and photo documentation.? Patient reports she has had the wound in various states for years. She reports she initially had a abdominoplasty and two subsequent surgery for complications each with wound healing complications. Patient reports she has seen Dr. Bueno from [facility] in the past but current is following her Plastic Surgeon topical recommendations which is dry gauze dressing. See below for photo. Lower Midline Nonhealing chronic wound Etiology: ??Nonhealing chronic wound Measurements: 5cm x 5cm x 0.2cm Wound Bed: Red pink moist hypergranulation tissue noted throughout small thin layers of slough noted - of note hypergranulation tissue has grown above skin level Drainage / Odor: small amount of yellow drainage ntoed on dressing when removed - no odor noted Edges: ? irregular and raisded Korin wound: scar tissue noted - No Induration, Fluctuance or Warmth noted Pain: tenderness reported Goals of Treatment: ? Moisture Management with alginate / hydrofiber Recommendations: 1. Lower Midline Abdomen - Cleanse with NS pat dry. Apply skin prep to periwound allow to dry. Cover wound bed with Durafiber AG, cover with foam dressing change every 3 days. Recommend patient to continue to follow with outpt wound clinic and or Plastic surgeon. Given significant growth of granulation tissue she will likely benefit from Serial silver nitrate applications to discourage granulation tissue growth. This will hopefully reprogram the wound bed to send epithelial cells to the wound bed for closure. Re-consult wound care Nurse for wound deterioration or wound changes.
[2023-12-28 20:00] VITALS: BP 116/62; PULSE 100; RESP 14; TEMP 36.6; O2SAT 98
[2023-12-28] MEDS: traZODone HCL 50 MG TABLET PO (20:25)
--- NOTE | 2023-12-28 23:27 | PM.CNGS ---
History of Present Illness Consult details Consult date: 12/28/23 Narrative: THE PATIENT IS A 38-YEAR-OLD FEMALE WHO IS ADMITTED under the psych deluna for bipolar symptoms that she has been having. She has had several operations recently for abdominoplasty with revision secondary to wound infection etc.. She has been followed by a surgeon and [place] and has had most recently an open wound present for which she has been doing dressing changes. She has been having some tenderness and pain and there is a mass in the epigastric area and there was a concern of whether this may be a hernia. She says however that she had a problem where there was a lump present in her abdominoplasty scar and her surgeon told her it was a migrating suture. She thinks that this may also be a migrating suture. She is comfortable but concerned about this and was requesting a CT scan of her abdomen and pelvis to be done to evaluate what is masses. She denies any obstructive symptoms Review of Systems Review of Systems: Most positive for psych issues PMFSH Past Medical History Medical History (Updated 12/28/23 @ 23:32 by Violette Lopez MD) Osteoporosis Anxiety PTSD (post-traumatic stress disorder) Depression Social History Social History Household Members: None Housing: Apartment Do you presently have visiting nurse or other home services: No Unable to assess alcohol history related to: Refusing to respond Patient Tobacco Use Status: Never used Tobacco Use of substances other than those prescribed or required for medical reasons: No Currently Displaying Signs/Symptoms of Drug Intoxication Withdrawal: No Spiritual Healthcare Practices: n/a Orthodox Healthcare Practices: n/a Cultural Healthcare Practices: n/a Advance Directives: No Advance Directives Information Provided: No Do you have thoughts of harming others: None Do you have a plan to hurt others: No Plan Recently lost weight without trying: Yes How much weight loss: 34pounds or more Eating poorly because of decreased appetite: No Nutrition screen score: 6 Nutrition Risks: Poor intake 0-25% >4 days Patient : No : No Poor oral hygiene: No service: No Sexual orientation: Straight/Heterosexual Meds Allergies Allergy/AdvReac Type Severity Reaction Status Date / Time No Known Allergies Allergy Verified 12/21/23 20:25 Active Medications: Current Medications Acetaminophen (Acetaminophen 325 Mg Tablet) 650 mg PO Q6H PRN PRN Reason: Headache/Pain Mild Scale (1-3) Last Admin: 12/28/23 14:21 Dose: 650 mg Al Hydroxide/Mg Hydroxide (Magnesium Hydrox/Alum Hydrox 30 Ml Oral.Susp) 30 ml PO Q6H PRN PRN Reason: Heartburn/Nausea Benzocaine (Throat Lozenge, Medicated Lozenge) 1 lozenge MUCOUS MEM Q2H PRN PRN Reason: Sore Throat Clonazepam (Clonazepam 0.5 Mg Tablet) 0.5 mg PO BID [facility] Last Admin: 12/28/23 20:25 Dose: 0.5 mg Divalproex Sodium (Divalproex Sodium Er 250 Mg Tab.Er.24h) 250 mg PO BEDTIME [facility] Last Admin: 12/27/23 22:23 Dose: Not Given Docusate Sodium (Docusate Sodium 100 Mg Capsule) 100 mg PO BID PRN PRN Reason: Constipation Last Admin: 12/28/23 08:35 Dose: 100 mg Hydroxyzine HCl (Hydroxyzine Hcl 25 Mg Tablet) 25 mg PO Q6H PRN PRN Reason: Anxiety Last Admin: 12/28/23 20:25 Dose: 25 mg Ibuprofen (Ibuprofen 400 Mg Tablet) 400 mg PO Q4H PRN PRN Reason: Pain, Mild (Pain Scale 1-3) Last Admin: 12/28/23 20:23 Dose: 400 mg Magnesium Hydroxide (Milk Of Magnesia 30 Ml Oral.Susp) 30 ml PO DAILY PRN PRN Reason: Constipation Nicotine Polacrilex (Nicotine Polacrilex 2 Mg Gum) 4 mg BUCCAL Q2H PRN PRN Reason: Nicotine Cravings Pt Own(Caplyta 21 Mg ()) 21 mg PO DAILY [facility] Last Admin: 12/28/23 08:35 Dose: 21 mg Risperidone (Risperidone 1 Mg Tablet) 1 mg PO BID [facility] Last Admin: 12/28/23 20:37 Dose: Not Given Trazodone HCl (Trazodone Hcl 50 Mg Tablet) 50 mg PO BEDTIME MRX1 PRN PRN Reason: Insomnia Last Admin: 12/28/23 20:25 Dose: 50 mg Home Medications ?Medication ?Instructions ?Recorded ?Confirmed ?Last Taken ?Type dextroamphetamine-amphetamine ER 25 mg PO DAILY 12/22/23 12/22/23 Unknown History 25 mg capsule,3 bead,ext release 24hr lithium carbonate 300 mg 900 mg PO BEDTIME 12/23/23 12/23/23 Unknown History tablet,extended release Physical Exam Vital Signs: Vital Signs: Last Vital Signs Temp 97.8 F 12/28/23 20:00 Pulse 100 12/28/23 20:00 Resp 14 12/28/23 20:00 BP 116/62 12/28/23 20:00 Pulse Ox 98 12/28/23 20:00 O2 Del Method Room Air 12/28/23 20:00 BMI result Body Mass Index 20.4 HEENT: Head: Yes normal to inspection GI: Other: Her abdomen is soft nondistended nontender. The open central aspect of her abdominoplasty wound is covered with dressings and she would prefer for it not to be taken down. She says it has been fine she manages that there was no problems there. At the epigastric area midline there is about a 2.5 by 2 cm mass which is firm but not quite tender. There has no overlying skin changes and this is quite higher up from where her abdominal surgery and incisions were. It has not reducible and that is that is above the fascia with Valsalva maneuver Results Labs 12/23/23 16:51 12/26/23 17:16 Labs: Urine 12/24/23 Range/Units 16:05 Urine Color Yellow Urine Appearance Clear Urine pH 7.5 (5.0-9.0) Ur Specific [place] 1.010 (1.005-1.025) Urine Protein Negative (Neg-Trace) mg/dL Urine Glucose (UA) Negative (Negative) mg/dL All other labs normal. Imaging Abdomen CT scan report/results: report reviewed and image reviewed CT scan - pelvis: report reviewed and image reviewed Additional studies: [address] [address] [address] Scan Report Signed Patient: Isabella Herrmann MR#: [id number] : 1985 Acct:[id number] Age/Sex: 38 / F ADM Date: 12/24/23 Loc: [id number] 306-[address]: Nik Quiles MD Ordering Physician: Violette Lopez MD Date of Service: 12/28/23 Procedure(s): CT abdomen pelvis w IV con Accession Number(s): [id number] cc: Physician,Unknown ; Violette Lopez MD~ EXAMINATION: CT ABDOMEN AND PELVIS WITH CONTRAST CLINICAL INFORMATION: Subcutaneous mass status-post multiple abdominal surgeries. COMPARISON: None available. TECHNIQUE: Multidetector volumetric images were obtained from the superior aspect of the liver through the pubic symphysis following administration 85 mL of Omnipaque 350 intravenous contrast. Sagittal and coronal reformatted images were obtained on the technologist's workstation. Oral contrast: No This CT examination was performed using dose optimization techniques as appropriate, variously including the following: *Automated exposure control *Adjustment of mA and/or kV according to patient size (this includes techniques or standardized protocols for targeted exams where dose is matched to indication/reason for exam; i.e. extremities or head) *Use of iterative reconstruction technique DLP: 259 mGy-cm FINDINGS: LUNG BASES: The visualized lung bases are unremarkable. Bilateral breast implants are noted. LIVER, GALLBLADDER, AND BILIARY TREE: The liver is normal in size, shape, and attenuation. No focal hepatic lesion or biliary ductal dilatation is present. The gallbladder is unremarkable with no evidence of radiopaque gallstones, gallbladder wall thickening, or obvious pericholecystic inflammatory changes. PANCREAS: Unremarkable. SPLEEN: Unremarkable. ADRENAL GLANDS: Unremarkable. KIDNEYS AND URETERS: The kidneys are normal in size, shape, and attenuation. No hydronephrosis, hydroureter, or calculi seen. A 1.9 cm benign, simple exophytic mid right renal cyst is seen, which requires no imaging follow-up. No perinephric stranding. BLADDER: Unremarkable. GASTROINTESTINAL TRACT: There is a large stool burden. No obstruction, free intraperitoneal air or abscess is seen. No significant diverticulosis or diverticulitis is seen. The vermiform appendix appears normal. ABDOMINAL WALL: No significant hernia is appreciated. There is a healed vertical midline incision. At the cephalad aspect of this incision (3:28 and 7:52), there is a 2.2 x 1.5 x 2.9 cm ill-defined high attenuation subcutaneous focus, which likely represents scarring and possibly evolving hematoma. LYMPH NODES: Normal. VASCULAR: Unremarkable. PELVIC VISCERA: The uterus and adnexa are unremarkable. OSSEOUS STRUCTURES: Unremarkable. CT/CT abdomen pelvis w IV con IMPRESSION: 1. A healed vertical midline incision is seen. At the cephalad aspect of this incision, a 2.9 cm in maximal diameter ill-defined hyperdense subcutaneous focus is seen, which likely represents scarring and possibly evolving hematoma. Recommend management on a clinical basis. 2. There is a large stool burden, suggesting possible constipation. No thelma bowel obstruction is seen. Fleischner guidelines were followed. Assessment and Plan (1) Abdominal wall hematoma: Status: Acute Plan 38-year-old female status post several abdominoplasty procedures over the last few months by her plastic surgeon in [place] here at the hospital for some psych issues an incidental complains of epigastric mass noted not to be a hernia. CT scan shows this to be a complex collection may be a hematoma which may very well be the case. No hernias noted. Patient should take this information and follow-up with her plastic surgeon on discharge. We will discuss with her the results of the CT scan Procedures Date of Service Date of Service: 12/28/23
[2023-12-29] MEDS: Ibuprofen 400 MG TABLET PO (06:24)
[2023-12-29 07:54] VITALS: BP 106/57; PULSE 89; RESP 14; TEMP 36.4; O2SAT 99
[2023-12-29] MEDS: hydrOXYzine HCL 25 MG TABLET PO (08:44)
[2023-12-29] MEDS: Acetaminophen 325 MG TABLET 650 MG PO (08:44)
[2023-12-29] MEDS: clonazePAM 0.5 MG TABLET PO (08:44)
[2023-12-29] MEDS: Docusate Sodium 100 MG CAPSULE PO (08:44)
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
== END 2023-12-29 11:30 | disposition home or self-care (01) | DRG 753 ==
LOC: HO.ED 12-24 09:58 → HO.PADLT16 12-24 12:21
PROVIDERS: Emergency Medicine; Physician Assistant; Admitting Provider Registered Nurse; Emergency Provider Emergency Medicine; Responsible Provider Registered Nurse; Visit Provider Psychiatry & Neurology Psychiatry
DX: F31.63 Bipolar disorder, current episode mixed, severe, without psychotic features (principal); K91.870 Postprocedural hematoma of a digestive system organ or structure following a digestive system procedure; Z91.148 Patient's other noncompliance with medication regimen for other reason; F43.10 Post-traumatic stress disorder, unspecified; Z79.899 Other long term (current) drug therapy
CPT/HCPCS: 36415; 74177; 80048; 80053; 80061; 80076; 80307; 81003; 84439; 84443; 84702; 85025; 99285; J1630; J2060; Q9967; S9485

== ENCOUNTER → 2023-12-21 21:13 | Outpatient (BNV) | payer MEDICAID, OTHER, SELFPAY | PROVIDERS: Emergency Provider Emergency Medicine; Visit Provider Social Worker | DX: F31.63 Bipolar disorder, current episode mixed, severe, without psychotic features (principal) | CPT/HCPCS: 90792; 99231; 99232; 99238; 99285 ==

== ENCOUNTER → 2023-12-24 12:17 | Outpatient (BNV) | payer MEDICAID, SELFPAY | PROVIDERS: Admitting Provider Registered Nurse; Emergency Provider Emergency Medicine; Responsible Provider Registered Nurse; Visit Provider Surgery | DX: L76.32 Postprocedural hematoma of skin and subcutaneous tissue following other procedure (principal) | CPT/HCPCS: 99222 ==

== ENCOUNTER 2024-01-04 19:11 | Inpatient (IN) | payer MEDICAID, OTHER, SELFPAY ==
[2024-01-04 19:28] VITALS: BP 118/82; BP 133/67; PULSE 106; PULSE 110; RESP 18; TEMP 36.7; O2SAT 98; BMI 20.3
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
--- NOTE | 2024-01-04 19:46 | PC.NURSE ---
i want the patient rights magazine, its a fucking paitent rights magazine in every room right now
--- NOTE | 2024-01-04 19:49 | ED.PSYCH ---
HPI - Psych General Chief Complaint: Psychiatric Symptoms Stated Complaint: SECTION 12 Time Seen by Provider: 01/04/24 19:49 Source: patient and EMS Mode of arrival: EMS Limitations: no limitations History of Present Illness HPI Narrative: 38-year-old female with history of bipolar, PTSD brought in by EMS for evaluation of decompensated mental status, patient came in for section 12 for risk of hurting herself or others, patient in the emergency department is on interruptible speak loudly about her patient's right and she should not be section 12, patient is not cooperative with the exam but declined visual or auditory hallucination. Patient had an old abdominal wall unhealed wound, patient had several operation recently for abdominal wall wound with revision secondary to infection that was done in [place], patient stated that she has been doing wound dressing and the wound is been doing okay, declined fever or chills, no wound discharge. Related Data Previous Rx's ?Medication ?Instructions ?Recorded Caplyta 21 mg PO DAILY ##0 12/29/23 clonazepam 0.5 mg tablet 0.5 mg PO BID #0 tabs 12/29/23 hydroxyzine HCl 25 mg tablet 25 mg PO BID PRN Anxiety 30 days 12/29/23 #60 tabs trazodone 50 mg tablet 50 mg PO BEDTIME PRN Insomnia 30 12/29/23 days #30 tabs Allergies Allergy/AdvReac Type Severity Reaction Status Date / Time No Known Allergies Allergy Verified 01/04/24 19:29 Review of Systems Review of Systems: All other systems are reviewed and are negative Constitutional: Reports as per HPI and Reports no additional constitutional complaints Eyes: Reports as per HPI and Reports no additional eye complaints Reports system reviewed and no additional complaints, except as documented Cardiovascular: Reports as per HPI and Reports no additional cardiovascular complaints Respiratory: Reports as per HPI and Reports no additional respiratory complaints Gastrointestinal: Reports as per HPI and Reports no additional gastrointestinal complaints Genitourinary: Reports no additional female genitourinary complaints Musculoskeletal: Reports no additional musculoskeletal complaints Skin/Breast: Reports system reviewed and no additional complaints, except as docu Psychiatric: Reports no additional psychiatric complaints Endocrine: Reports no additional endocrine complaints Hematologic/Lymphatic: Reports no additional hematologic/lymphatic complaints Allergic/Immunologic: Reports no additional allergic/immunologic complaints Reports system reviewed and no additional complaints, except as documented and Reports Abnormal speech present [facility] Past Medical History Medical History Osteoporosis Anxiety PTSD (post-traumatic stress disorder) Depression Social History Social History Household Members: None Housing: Apartment Do you presently have visiting nurse or other home services: No Unable to assess alcohol history related to: Refusing to respond Patient Tobacco Use Status: Never used Tobacco Patient : No service: No Sexual orientation: Straight/Heterosexual Physical Exam Vital Signs: Vital Signs: Last Vital Signs Temp 98.1 F 01/04/24 19:28 Pulse 110 H 01/04/24 19:28 Resp 18 01/04/24 19:28 BP 133/67 01/04/24 19:28 Pulse Ox 98 01/04/24 19:28 O2 Del Method Room Air 01/04/24 19:28 BMI result Body Mass Index 20.3 Vital signs have been reviewed and appear to be correct. Blood pressure elevated. Heart rate normal. Respiratory rate normal. Temperature normal. Oxygen saturation normal. Appearance: Alert. Oriented X3. No acute distress. Head: Normal external exam. Normocephalic. Atraumatic. No Nicholson signs noted. No raccoon eyes noted Eyes: PERRLA. EOMI. Conjunctiva and sclera normal. Eyelids normal. ENT: TM's Normal. Pharynx normal. Uvula midline. Moist mucous membranes. No trismus noted. No drooling noted. No muffled voice noted. Neck: Normal inspection. Neck supple. FROM. No adenopathy. Thyroid Normal. No meningeal signs. No neck mass noted. CVS: Normal heart rate and rhythm. Heart sound normal. No murmurs noted. Pulses normal throughout. Respiratory: No respiratory distress. Painless inspiration. Breath sounds normal. No wheezes/rales/rhonchi noted. Chest nontender. No accessory muscle usage noted or decreased air movement noted. Abdomen: Soft and nontender. Old lower anterior abdominal wall surgical incision with no erythema, no tenderness, no discharge, middle ulcerative area with good healing granulation tissue, no fluctuation. Back: No CVA tenderness. Full range of motion noted. Skin: Skin warm and dry. Normal skin color. Normal skin turgor. No rashes/lesions/lacerations noted. Extremities: No lower extremity edema. Extremities exhibit normal range of motion. Extremities nontender. Neuro: Oriented X 3. Cranial nerve exam: II-XII are grossly intact No motor deficit. No sensory deficit. Reflexes normal. Patient Orientation: Person, Place, Time and Situation, okay hygiene and grooming. Fair eye contact, attentive, no tics or tremors. Level of Consciousness: Awake, Appropriate and Alert Patient Behavior: Appropriate, Guarded, Cooperative and Anxious Mood Description: Constricted, Blunted and Apprehensive Affect Description: Constricted, Blunted and Apprehensive Patient Cognition Impaired: No Ability to Follow Directions: Excellent Speech Pattern: clear, and a fast rate with some pressure pattern speech, patient is non interruptible Memory Description: Intact, Immediate Intact and Short Term Intact Hallucinations: not cooperative with the exam Delusions: Not cooperative with the exam Thought Process: Intact Thought Content: positive for Intact, denies Suicidal Ideation and denies Homicidal Ideation. Depressive Symptoms: Not present. Judgement and Insight: Limited. Course Reevaluation(s) Reevaluation #1: patient with manic behavior, patient needs to be sedated in the ED 10 of Zyprexa was ordered, patient is refusing workup for medical clearance. Abdominal wound appear healing with no sign of infection. Time: 20:26 Medical Decision Making Differential Diagnosis Differential Diagnoses: The differential diagnosis associated with the presentation includes ( Abdominal wound infection, bipolar kelsey, electrolyte derangement, severe anemia, polysubstance abuse, alcohol intoxication.) Admission/Observation Consideration of admission/observation: Escalation of care including admission/observation considered Discharge Plan Discharge Clinical Impression: Acute psychosis, Encounter for wound care Patient Disposition: Still a Patient Prescriptions: No Action clonazepam 0.5 mg Tablet 0.5 mg PO BID Qty: 0 0RF hydroxyzine HCl 25 mg Tablet 25 mg PO BID PRN (Reason: Anxiety) 30 Days Qty: 60 0RF Caplyta 21 mg PO DAILY Qty: 0 0RF trazodone 50 mg Tablet 50 mg PO BEDTIME PRN (Reason: Insomnia) 30 Days Qty: 30 0RF Print Language: Jordanian
[2024-01-04] MEDS: OLANZapine 10 MG VIAL IM (20:40)
--- NOTE | 2024-01-04 20:42 | PC.NURSE ---
patient removed bandage and was very disrputive to the milieu and antagonistic to staff.
[2024-01-05 06:12] VITALS: BP 109/68; PULSE 82; RESP 15; TEMP 36.8; O2SAT 99
--- NOTE | 2024-01-05 06:14 | MHC.EDTECH ---
Patient continues to be uncooperative and is refusing labs and urine sample.
--- NOTE | 2024-01-05 10:42 | PC.NURSE ---
this nurse was told by the [facility] that the patient is refusing ekg, lab draws, urine, this nurse went to speak with the patient who also refused the medication ordered for this am.
[2024-01-05 12:28] VITALS: BP 116/80; PULSE 96; RESP 20; TEMP 36.3; O2SAT 100; BMI 18.6
--- NOTE | 2024-01-05 13:06 | PC.NURSE ---
Patient request an emergency hearing upon admission. MD, Clinical coordinate and Agricultural Inspector notified at this time. MD provided form to be completed and forwarded to trust and estates attorney.
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
[2024-01-05 20:00] VITALS: RESP 16
[2024-01-05] MEDS: Acetaminophen 325 MG TABLET 650 MG PO (21:10)
[2024-01-05] MEDS: clonazePAM 0.5 MG TABLET PO (21:10)
--- NOTE | 2024-01-05 21:21 | PC.NURSE ---
Isabella c/o abdominal pain 01/30. Tylenol 650mg given per provider Richa Lebron NP
[2024-01-06 07:45] VITALS: BP 114/66; PULSE 83; RESP 16; TEMP 36.9; O2SAT 100
[2024-01-06] MEDS: clonazePAM 0.5 MG TABLET PO (08:41)
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
[2024-01-06] MEDS: hydrOXYzine HCL 25 MG TABLET PO ×2 (13:51→22:57)
[2024-01-06] MEDS: Acetaminophen 325 MG TABLET 650 MG PO ×2 (13:51→22:57)
[2024-01-06 20:00] VITALS: BP 113/61; PULSE 75; RESP 18; TEMP 36.9; O2SAT 98
[2024-01-06] MEDS: traZODone HCL 50 MG TABLET PO (22:57)
[2024-01-07 07:45] VITALS: BP 116/69; PULSE 75; RESP 16; TEMP 37; O2SAT 99
[2024-01-07] MEDS: hydrOXYzine HCL 25 MG TABLET PO (09:43)
[2024-01-07] MEDS: Acetaminophen 325 MG TABLET 650 MG PO ×3 (09:43→21:27)
--- NOTE | 2024-01-07 15:02 | HO.PSYCHPN ---
Subjective Subjective Date of Service: 01/07/24 Reason For Visit: Clary Interim History: more calm today than yesterday. aware of hearing at 2 pm. asking for klonopin. explains rationale for not prescribing klonopin; that mood stabilizing medication otherwise should be prescribed. pt expresses concern she is going into withdrawal. MD agrees to Rx brief taper, starting with klonopin 0.25 mg BID for now. per staff, angry re admission. demanding emergency hearing. refused lithium and prolixin. slept about 10 hours. Mental Status Exam Mental Status Exam Narrative: adequately dressed and groomed. cooperative. no PMA/PMR. speech incr rate, nml amount, nml loudness, nml latency. thoughts linear and logical. affect constricted, normo-intense, non-labile. mood note assessed. no SI/HI/AVH expressed. Diagnostics Vital Signs (24Hr): Vital Signs - 24 hr 01/06/24 20:00 01/07/24 07:45 Temperature 98.5 F 98.6 F Pulse Rate 75 75 Respiratory Rate 18 16 Blood Pressure 113/61 116/69 Pulse Oximetry 98 99 Oxygen Delivery Method Room Air Room Air BMI result Body Mass Index 18.6 Medications Medications Current Medications Acetaminophen (Acetaminophen 325 Mg Tablet) 650 mg PO Q6H PRN PRN Reason: Headache/Pain Mild Scale (1-3) Last Admin: 01/07/24 09:43 Dose: 650 mg Al Hydroxide/Mg Hydroxide (Magnesium Hydrox/Alum Hydrox 30 Ml Oral.Susp) 30 ml PO Q6H PRN PRN Reason: Heartburn/Nausea Clonazepam (Clonazepam 0.125 Mg Tab.Rapdis) 0.25 mg PO BID [facility] Last Admin: 01/07/24 14:10 Dose: 0.25 mg Fluphenazine HCl (Fluphenazine Hcl 5 Mg Tablet) 5 mg PO BEDTIME [facility] Last Admin: 01/06/24 23:01 Dose: Not Given Hydroxyzine HCl (Hydroxyzine Hcl 25 Mg Tablet) 25 mg PO BID PRN PRN Reason: Anxiety Last Admin: 01/06/24 22:57 Dose: 25 mg Hydroxyzine HCl (Hydroxyzine Hcl 25 Mg Tablet) 25 mg PO Q6H PRN PRN Reason: Anxiety Last Admin: 01/07/24 09:43 Dose: 25 mg [place] Carbonate ([place] Carbonate Er 450 Mg Tablet.Er) 450 mg PO BID [facility] Last Admin: 01/07/24 09:44 Dose: Not Given Magnesium Hydroxide (Milk Of Magnesia 30 Ml Oral.Susp) 30 ml PO DAILY PRN PRN Reason: Constipation Nicotine Polacrilex (Nicotine Polacrilex 2 Mg Gum) 4 mg BUCCAL Q2H PRN PRN Reason: Nicotine Cravings Trazodone HCl (Trazodone Hcl 50 Mg Tablet) 50 mg PO BEDTIME PRN PRN Reason: Insomnia Last Admin: 01/06/24 22:57 Dose: 50 mg Trazodone HCl (Trazodone Hcl 50 Mg Tablet) 50 mg PO BEDTIME MRX1 PRN PRN Reason: Insomnia Allergies Allergies Allergy/AdvReac Type Severity Reaction Status Date / Time No Known Allergies Allergy Verified 01/04/24 19:29 Assessment & Plan Assessment & Plan (1) Bipolar 1 disorder, mixed, severe: Status: Acute Code(s): F31.63 - Bipolar disorder, current episode mixed, severe, without psychotic features Plan offer mood stabilizer, antipsychotic. emergency hearing underway, result TBD. Reason for continued inpatient stay Substantial Risk for: harm to self, harm to others, inability to function and rapid decompensation Time Spent With Patient Time: Total time managing care of this patient today __90__ minutes.
[2024-01-07] MEDS: hydrOXYzine HCL 50 MG TABLET PO (15:43)
[2024-01-07 20:00] VITALS: BP 126/69; PULSE 81; RESP 16; TEMP 37.1; O2SAT 98
[2024-01-07] MEDS: Lithium Carbonate ER 450 MG TABLET.ER PO (21:16)
[2024-01-07] MEDS: fluPHENAZine HCl 5 MG TABLET PO (21:18)
[2024-01-07] MEDS: traZODone HCL 50 MG TABLET PO (21:26)
[2024-01-08 08:30] VITALS: BP 106/71; PULSE 77; RESP 14; TEMP 37; O2SAT 98
[2024-01-08] MEDS: Lithium Carbonate ER 450 MG TABLET.ER PO ×2 (09:16→20:02)
[2024-01-08] MEDS: hydrOXYzine HCL 50 MG TABLET PO ×2 (09:16→18:10)
[2024-01-08] MEDS: Acetaminophen 325 MG TABLET 650 MG PO ×2 (09:34→18:10)
--- NOTE | 2024-01-08 10:53 | HO.PSYCHPN ---
Subjective Subjective Date of Service: 01/08/24 Reason For Visit: Clary Subjective Notes: Section 12B Interim History: Patient was seen and discussed in rounds today. Records and plans were reviewed. She is on a Klonopin taper. Refusing mood stabilizers. She did have an emergency hearing yesterday and 12b was continued. Eating and sleeping adequately. Not happy about being here. No changes were made today. She does have a wound that is pending wound consult however it looks more infected and hospitalist consult was requested for culture and treatment. Review of Systems Review of Systems Wound/bedsore Yes all other systems are reviewed and are negative Mental Status Exam Mental Status Exam Narrative: In today's visit she is alert, mostly pleasant and interactive within her means. Speech is mostly normal. Little eye contact. Affect is constricted. No acute signs of psychosis. No suicidal homicidal ideations. No delusions. Cognitively could not be assessed. Judgment is marginal. Diagnostics Vital Signs (24Hr): Vital Signs - 24 hr 01/07/24 20:00 01/08/24 08:30 Temperature 98.8 F 98.6 F Pulse Rate 81 77 Respiratory Rate 16 14 Blood Pressure 126/69 106/71 Pulse Oximetry 98 98 Oxygen Delivery Method Room Air Room Air BMI result Body Mass Index 18.6 Medications Medications Current Medications Acetaminophen (Acetaminophen 325 Mg Tablet) 650 mg PO Q6H PRN PRN Reason: Headache/Pain Mild Scale (1-3) Last Admin: 01/08/24 09:34 Dose: 650 mg Al Hydroxide/Mg Hydroxide (Magnesium Hydrox/Alum Hydrox 30 Ml Oral.Susp) 30 ml PO Q6H PRN PRN Reason: Heartburn/Nausea Clonazepam (Clonazepam 0.125 Mg Tab.Rapdis) 0.25 mg PO BID [facility] Last Admin: 01/08/24 09:16 Dose: 0.25 mg Fluphenazine HCl (Fluphenazine Hcl 5 Mg Tablet) 5 mg PO BEDTIME [facility] Last Admin: 01/07/24 21:18 Dose: 5 mg Hydroxyzine HCl (Hydroxyzine Hcl 50 Mg Tablet) 50 mg PO Q4H PRN PRN Reason: Anxiety Last Admin: 01/08/24 09:16 Dose: 50 mg [place] Carbonate ([place] Carbonate Er 450 Mg Tablet.Er) 450 mg PO BID [facility] Last Admin: 01/08/24 09:16 Dose: 450 mg Magnesium Hydroxide (Milk Of Magnesia 30 Ml Oral.Susp) 30 ml PO DAILY PRN PRN Reason: Constipation Nicotine Polacrilex (Nicotine Polacrilex 2 Mg Gum) 4 mg BUCCAL Q2H PRN PRN Reason: Nicotine Cravings Trazodone HCl (Trazodone Hcl 50 Mg Tablet) 50 mg PO BEDTIME PRN PRN Reason: Insomnia Last Admin: 01/07/24 21:26 Dose: 50 mg Trazodone HCl (Trazodone Hcl 50 Mg Tablet) 50 mg PO BEDTIME MRX1 PRN PRN Reason: Insomnia Allergies Allergies Allergy/AdvReac Type Severity Reaction Status Date / Time No Known Allergies Allergy Verified 01/04/24 19:29 Assessment & Plan Assessment & Plan (1) Bipolar 1 disorder, mixed, severe: Status: Acute Code(s): F31.63 - Bipolar disorder, current episode mixed, severe, without psychotic features Plan offer mood stabilizer, antipsychotic. emergency hearing underway, result TBD. 01/07: Continue current treatment and plan Reason for continued inpatient stay Substantial Risk for: med/psych decompensation Time Spent With Patient Time: Total time managing care of this patient today ____ minutes.
--- NOTE | 2024-01-08 13:25 | P.EN_ITS ---
Event Note Date of Service: 01/08/24 Event Note: Patient is a 38-year-old female with a PMH significant for recent abdominoplasty by Dr Onofre in [place], [place] on December 14 complicated by retained sutures and necrosis of abdominal wall. Has undergone subsequent procedures for revision secondary to wound infection. Wound continues to be open and draining. Hospitalist consult for wound infection evaluation and possible antibiotic recommendations. Patient declines physical examination when approached. Patient claims she does not want any more evaluation or treatment, including antibiotics, until she sees her plastic surgeon this coming Wednesday. Reports has been following closely with them. Concern for staff here had been for a yellow/greenish discharge from a new opening that appeared different from previous stay one week ago. Pt, though, reports discharge is similar to previous and follow closely with her surgeon. Patient denies fever, chills, nausea, vomiting, abdominal pain. Patient knows to notify staff if wound worsens, there is a significant change in discharge, or she develops any systemic symptoms, including fever and chills, that could indicate severe infection. Thank you for allowing us to participate in the care of this patient. Signing off at this time. Please re-consult if any acute complaints or issues arise. Time Spent With Patient Time: Total time managing care of this patient today ____ minutes.
--- NOTE | 2024-01-08 16:30 | PC.NURSE ---
Abd wound: dry sterile dressing changed and large amount of thick purulent foul smelling drainage was noted on old dressing. Wound bed exhibits hypergranulation. New open (2cm) area at 10 o'clock. Discussed with pt the need to have MD assess for question of infection and consider abx. Pt agreed. However, when the hospitalist arrived she refused to allow him to assess her wound stating, I am leaving on Wednesday and will see my surgeon then.
[2024-01-08 20:00] VITALS: BP 130/72; PULSE 79; RESP 16; TEMP 37; O2SAT 99
[2024-01-08] MEDS: traZODone HCL 50 MG TABLET PO ×2 (20:02→21:00)
[2024-01-08] MEDS: fluPHENAZine HCl 5 MG TABLET PO (20:03)
[2024-01-09 07:43] VITALS: BP 114/62; PULSE 70; RESP 14; TEMP 36.8; O2SAT 98
--- NOTE | 2024-01-09 08:08 | P.PNPSI_ITS ---
Subjective Subjective Date of Service: 01/09/24 Reason For Visit: Clary Subjective Notes: Section 12B Interim History: Patient was seen and discussed in rounds today. Records and plans were reviewed. She has been visible taking some meds but not what might be more necessary. She is on a 12 be. Yesterday nursing thought that her wound may be infected and I did as well the hospitalist to take a look but she refused to let them and wants to wait until she sees her surgeon this week. Slept 7-8 hours. No complaints. No changes were made today Review of Systems Review of Systems Abdominal/surgical wound Yes all other systems are reviewed and are negative Mental Status Exam Mental Status Exam Narrative: In today's visit she is alert, mostly pleasant and interactive within her means. Speech is normal. Moderate eye contact. Affect is constricted. No acute signs of psychosis. No suicidal homicidal ideations. No delusions. Cognitively is intact to observation. Judgment is marginal. Diagnostics Vital Signs (24Hr): Vital Signs - 24 hr 01/08/24 08:30 01/08/24 20:00 01/09/24 07:43 Temperature 98.6 F 98.6 F 98.3 F Pulse Rate 77 79 70 Respiratory Rate 14 16 14 Blood Pressure 106/71 130/72 114/62 Pulse Oximetry 98 99 98 Oxygen Delivery Method Room Air Room Air Room Air BMI result Body Mass Index 18.6 Medications Medications Current Medications Acetaminophen (Acetaminophen 325 Mg Tablet) 650 mg PO Q6H PRN PRN Reason: Headache/Pain Mild Scale (1-3) Last Admin: 01/08/24 18:10 Dose: 650 mg Al Hydroxide/Mg Hydroxide (Magnesium Hydrox/Alum Hydrox 30 Ml Oral.Susp) 30 ml PO Q6H PRN PRN Reason: Heartburn/Nausea Clonazepam (Clonazepam 0.125 Mg Tab.Rapdis) 0.25 mg PO BID [facility] Last Admin: 01/08/24 20:01 Dose: 0.25 mg Fluphenazine HCl (Fluphenazine Hcl 5 Mg Tablet) 5 mg PO BEDTIME [facility] Last Admin: 01/08/24 20:03 Dose: 5 mg Hydroxyzine HCl (Hydroxyzine Hcl 50 Mg Tablet) 50 mg PO Q4H PRN PRN Reason: Anxiety Last Admin: 01/08/24 18:10 Dose: 50 mg [place] Carbonate ([place] Carbonate Er 450 Mg Tablet.Er) 450 mg PO BID [facility] Last Admin: 01/08/24 20:02 Dose: 450 mg Magnesium Hydroxide (Milk Of Magnesia 30 Ml Oral.Susp) 30 ml PO DAILY PRN PRN Reason: Constipation Nicotine Polacrilex (Nicotine Polacrilex 2 Mg Gum) 4 mg BUCCAL Q2H PRN PRN Reason: Nicotine Cravings Trazodone HCl (Trazodone Hcl 50 Mg Tablet) 50 mg PO BEDTIME PRN PRN Reason: Insomnia Last Admin: 01/08/24 21:00 Dose: 50 mg Trazodone HCl (Trazodone Hcl 50 Mg Tablet) 50 mg PO BEDTIME MRX1 PRN PRN Reason: Insomnia Allergies Allergies Allergy/AdvReac Type Severity Reaction Status Date / Time No Known Allergies Allergy Verified 01/04/24 19:29 Assessment & Plan Assessment & Plan (1) Bipolar 1 disorder, mixed, severe: Status: Acute Code(s): F31.63 - Bipolar disorder, current episode mixed, severe, without psychotic features Plan offer mood stabilizer, antipsychotic. emergency hearing underway, result TBD. 01/07: Continue current treatment and plan 01/08: Continue current regimen and plans Reason for continued inpatient stay Substantial Risk for: rapid decompensation Time Spent With Patient Time: Total time managing care of this patient today ____ minutes.
[2024-01-09] MEDS: Acetaminophen 325 MG TABLET 650 MG PO ×2 (09:23→16:26)
[2024-01-09] MEDS: Lithium Carbonate ER 450 MG TABLET.ER PO ×2 (09:23→20:26)
[2024-01-09] MEDS: hydrOXYzine HCL 50 MG TABLET PO ×3 (09:26→17:40)
[2024-01-09 20:00] VITALS: BP 140/78; PULSE 83; RESP 16; TEMP 36.1; O2SAT 98
[2024-01-09] MEDS: QUEtiapine Fumarate 100 MG TABLET PO (20:26)
[2024-01-09] MEDS: Docusate Sodium 100 MG CAPSULE PO (20:26)
[2024-01-09] MEDS: traZODone HCL 50 MG TABLET PO ×2 (20:27→21:29)
[2024-01-10 07:49] VITALS: BP 114/60; PULSE 77; RESP 14; TEMP 36.7; O2SAT 99
[2024-01-10] MEDS: Docusate Sodium 100 MG CAPSULE PO ×2 (08:41→20:52)
[2024-01-10] MEDS: Acetaminophen 325 MG TABLET 650 MG PO ×3 (08:41→22:18)
[2024-01-10] MEDS: hydrOXYzine HCL 50 MG TABLET PO ×4 (08:42→20:52)
[2024-01-10] MEDS: Lithium Carbonate ER 450 MG TABLET.ER PO ×2 (08:42→20:52)
--- NOTE | 2024-01-10 10:22 | HO.WOUND ---
Wound Consult: Initial 38yr old?female admitted to [facility] on 01/05/24 11:25 - See progress notes and H&P for detailed history.? Recent admission see chart details. Wound consult placed for nonhealing abdominal wound secondary to abdominal surgery.? Patient agreeable to assessment and photo documentation.? Patient reports she has had the wound in various states for years. She reports she initially had a abdominoplasty and two subsequent surgery for complications each with wound healing complications. Patient reports she plans to follow up with her Plastic surgeon after discharge and will work with him to determine if she should have Outpatient wound care clinic followup. When compared to last admission there is improvment in wound bed viability and decrease in size of wound. Unfortunatly patient reported that hydrofiber I recommended last admission casued a secondary new wound and she felt it was the wrong treatment. I assessed the wound bed and reported I felt the area to the right of her wound is actually improved and that it was part of the same wound last admission - see photo below. She was not agreeable to this she requested I not apply hydrofiber or alginate to the wound bed. She was educated on the decreased height of the granulation tissue and the decrease in size - she reports she feels that is relation to the gauze she has been applying. Ideally hydrofiber will allow for moisture management but given patient current view Foam dressings can be applied to allow for moist wound healing and drainage absorption. 12/28/23 Assessment 01/10/24 Assessment Lower Midline Nonhealing chronic wound Etiology: ??Nonhealing chronic wound Measurements: 4cm x 4cm x 0.2cm Wound Bed: Red pink moist hypergranulation tissue noted - of note hypergranulation tissue continues to grow above skin level but is improved form last assessment Drainage / Odor: small amount of yellow drainage noted on dressing when removed - no odor noted Edges: ? irregular and raised Korin wound: scar tissue noted - No Induration, Fluctuance or Warmth noted - No s/s of infection at this time. Pain: denies Goals of Treatment: ? Moisture Management with alginate / hydrofiber given refusal foam dressing for moisture management Recommendations: 1. Lower Midline Abdomen - Cleanse with NS pat dry. Apply skin prep to periwound allow to dry. Cover with foam dressing at patient request if patient is agreeable follow order below. Cover wound bed with Durafiber AG, cover with foam dressing change every 3 days. Recommend patient to continue to follow with outpt wound clinic and or Plastic surgeon. Given significant growth of granulation tissue she will likely benefit from Serial silver nitrate applications to discourage granulation tissue growth. This will hopefully reprogram the wound bed to send epithelial cells to the wound bed for closure. Re-consult wound care Nurse for wound deterioration or wound changes.
--- NOTE | 2024-01-10 12:15 | PC.NURSE ---
Patient signed conditional voluntary with Dr. Monroy, followed by 3 day notice.
--- NOTE | 2024-01-10 16:48 | HO.PSYCHPN ---
Subjective Subjective Date of Service: 01/10/24 Reason For Visit: Clary Interim History: presenting far better than last week. feeling helped by regimen. signed in voluntarily, then signed 3-day. Mental Status Exam Mental Status Exam Narrative: In today's visit she is alert, pleasant and interactive. Speech is normal. Moderate eye contact. Affect is constricted. No acute signs of psychosis. No suicidal homicidal ideations. No delusions. Cognitively is intact to observation. Judgment is marginal. Diagnostics Vital Signs (24Hr): Vital Signs - 24 hr 01/09/24 20:00 01/10/24 07:49 Temperature 96.9 F 98.1 F Pulse Rate 83 77 Respiratory Rate 16 14 Blood Pressure 140/78 H 114/60 Pulse Oximetry 98 99 Oxygen Delivery Method Room Air Room Air BMI result Body Mass Index 18.6 Medications Medications Current Medications Acetaminophen (Acetaminophen 325 Mg Tablet) 650 mg PO Q6H PRN PRN Reason: Headache/Pain Mild Scale (1-3) Last Admin: 01/10/24 15:54 Dose: 650 mg Al Hydroxide/Mg Hydroxide (Magnesium Hydrox/Alum Hydrox 30 Ml Oral.Susp) 30 ml PO Q6H PRN PRN Reason: Heartburn/Nausea Clonazepam (Clonazepam 0.125 Mg Tab.Rapdis) 0.25 mg PO BID [facility] Last Admin: 01/10/24 08:41 Dose: 0.25 mg Docusate Sodium (Docusate Sodium 100 Mg Capsule) 100 mg PO BID [facility] Last Admin: 01/10/24 08:41 Dose: 100 mg Hydroxyzine HCl (Hydroxyzine Hcl 50 Mg Tablet) 50 mg PO Q4H PRN PRN Reason: Anxiety Last Admin: 01/10/24 12:40 Dose: 50 mg [place] Carbonate ([place] Carbonate Er 450 Mg Tablet.Er) 450 mg PO BID [facility] Last Admin: 01/10/24 08:42 Dose: 450 mg Magnesium Hydroxide (Milk Of Magnesia 30 Ml Oral.Susp) 30 ml PO DAILY PRN PRN Reason: Constipation Nicotine Polacrilex (Nicotine Polacrilex 2 Mg Gum) 4 mg BUCCAL Q2H PRN PRN Reason: Nicotine Cravings Quetiapine Fumarate (Quetiapine Fumarate 100 Mg Tablet) 100 mg PO BEDTIME [facility] Last Admin: 01/09/24 20:26 Dose: 100 mg Quetiapine Fumarate (Quetiapine Fumarate 100 Mg Tablet) 100 mg PO BEDTIME PRN PRN Reason: insomnia Allergies Allergies Allergy/AdvReac Type Severity Reaction Status Date / Time No Known Allergies Allergy Verified 01/04/24 19:29 Assessment & Plan Assessment & Plan (1) Bipolar 1 disorder, mixed, severe: Status: Acute Code(s): F31.63 - Bipolar disorder, current episode mixed, severe, without psychotic features Plan offer mood stabilizer, antipsychotic. emergency hearing underway, result TBD. 01/07: Continue current treatment and plan 01/08: Continue current regimen and plans 01/09: DC prolixin for akathisia. continue seroquel 100 QHS instead. continue lithium. check labs . planning for DC morning. Reason for continued inpatient stay Substantial Risk for: inability to function and rapid decompensation Time Spent With Patient Time: Total time managing care of this patient today __35__ minutes.
[2024-01-10 20:00] VITALS: BP 114/64; PULSE 90; RESP 16; TEMP 37.2; O2SAT 99
[2024-01-10] MEDS: QUEtiapine Fumarate 100 MG TABLET PO ×2 (20:52→22:18)
[2024-01-11] MEDS: hydrOXYzine HCL 50 MG TABLET PO ×5 (04:36→21:31)
[2024-01-11 07:49] VITALS: BP 102/60; PULSE 71; RESP 18; TEMP 35.6; O2SAT 99
[2024-01-11] MEDS: Docusate Sodium 100 MG CAPSULE PO ×2 (09:07→20:18)
[2024-01-11] MEDS: Acetaminophen 325 MG TABLET 650 MG PO ×3 (09:07→21:30)
[2024-01-11] MEDS: Lithium Carbonate ER 450 MG TABLET.ER PO ×2 (09:08→20:18)
--- NOTE | 2024-01-11 15:03 | HO.PSYCHPN ---
Subjective Subjective Date of Service: 01/11/24 Reason For Visit: Clary Interim History: calm, cooperative. no complaints or requests. no bad dreams since trazodone DC. plan to check lithium tomorrow evening. per staff, doing much better. 3-day notice up . Mental Status Exam Mental Status Exam Narrative: In today's visit she is alert, pleasant and interactive. Speech is normal. Moderate eye contact. Affect is constricted. No acute signs of psychosis. No suicidal homicidal ideations. No delusions. Cognitively is intact to observation. Judgment is marginal. Diagnostics Vital Signs (24Hr): Vital Signs - 24 hr 01/10/24 20:00 01/11/24 07:49 Temperature 98.9 F 96.1 F L Pulse Rate 90 71 Respiratory Rate 16 18 Blood Pressure 114/64 102/60 Pulse Oximetry 99 99 Oxygen Delivery Method Room Air Room Air BMI result Body Mass Index 18.6 Medications Medications Current Medications Acetaminophen (Acetaminophen 325 Mg Tablet) 650 mg PO Q6H PRN PRN Reason: Headache/Pain Mild Scale (1-3) Last Admin: 01/11/24 14:59 Dose: 650 mg Al Hydroxide/Mg Hydroxide (Magnesium Hydrox/Alum Hydrox 30 Ml Oral.Susp) 30 ml PO Q6H PRN PRN Reason: Heartburn/Nausea Clonazepam (Clonazepam 0.125 Mg Tab.Rapdis) 0.25 mg PO BID [facility] Last Admin: 01/11/24 09:08 Dose: 0.25 mg Docusate Sodium (Docusate Sodium 100 Mg Capsule) 100 mg PO BID [facility] Last Admin: 01/11/24 09:07 Dose: 100 mg Hydroxyzine HCl (Hydroxyzine Hcl 50 Mg Tablet) 50 mg PO Q4H PRN PRN Reason: Anxiety Last Admin: 01/11/24 13:04 Dose: 50 mg [place] Carbonate ([place] Carbonate Er 450 Mg Tablet.Er) 450 mg PO BID [facility] Last Admin: 01/11/24 09:08 Dose: 450 mg Magnesium Hydroxide (Milk Of Magnesia 30 Ml Oral.Susp) 30 ml PO DAILY PRN PRN Reason: Constipation Nicotine Polacrilex (Nicotine Polacrilex 2 Mg Gum) 4 mg BUCCAL Q2H PRN PRN Reason: Nicotine Cravings Quetiapine Fumarate (Quetiapine Fumarate 100 Mg Tablet) 100 mg PO BEDTIME [facility] Last Admin: 01/10/24 20:52 Dose: 100 mg Quetiapine Fumarate (Quetiapine Fumarate 100 Mg Tablet) 100 mg PO BEDTIME PRN PRN Reason: insomnia Last Admin: 01/10/24 22:18 Dose: 100 mg Allergies Allergies Allergy/AdvReac Type Severity Reaction Status Date / Time No Known Allergies Allergy Verified 01/04/24 19:29 Assessment & Plan Assessment & Plan (1) Bipolar 1 disorder, mixed, severe: Status: Acute Code(s): F31.63 - Bipolar disorder, current episode mixed, severe, without psychotic features Plan offer mood stabilizer, antipsychotic. emergency hearing underway, result TBD. 01/07: Continue current treatment and plan 01/08: Continue current regimen and plans 01/09: DC prolixin for akathisia. continue seroquel 100 QHS instead. continue lithium. check labs night. planning for DC morning. 01/10: doing well on current regimen. check labs tomorrow night, discharge . Reason for continued inpatient stay Substantial Risk for: inability to function and rapid decompensation Time Spent With Patient Time: Total time managing care of this patient today _25___ minutes.
[2024-01-11 20:00] VITALS: BP 124/67; PULSE 93; RESP 16; TEMP 37.1; O2SAT 98
[2024-01-11] MEDS: QUEtiapine Fumarate 100 MG TABLET PO ×2 (20:17→21:31)
[2024-01-12 08:00] VITALS: BP 117/67; PULSE 72; RESP 14; TEMP 36.9; O2SAT 98
[2024-01-12] MEDS: Docusate Sodium 100 MG CAPSULE PO ×2 (08:16→20:16)
[2024-01-12] MEDS: Lithium Carbonate ER 450 MG TABLET.ER PO ×2 (08:17→20:16)
[2024-01-12] MEDS: Acetaminophen 325 MG TABLET 650 MG PO ×3 (08:19→21:19)
[2024-01-12] MEDS: hydrOXYzine HCL 50 MG TABLET PO ×3 (08:19→20:16)
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
[2024-01-12 20:00] VITALS: BP 137/90; PULSE 86; RESP 16; TEMP 37.1; O2SAT 99
[2024-01-12] MEDS: QUEtiapine Fumarate 100 MG TABLET PO ×2 (20:16→21:19)
[2024-01-12 20:34] LABS: Anion Gap 17 (12-20); Blood Urea Nitrogen 23 mg/dL (9-16); Calcium 10.6 mg/dL (8.4-10.2); Carbon Dioxide 26 mmol/L (22-29); Chloride 103 mmol/L (96-108); Creatinine Clr Calc Pharmacy 80.5; Estimated Glomerular Filt Rate > 60; Glucose Random 93 mg/dL (60-115); Potassium 4.6 mmol/L (3.3-5.1); Sodium 141 mmol/L (135-145)
[2024-01-13 07:00] VITALS: BMI 21.7
[2024-01-13 07:52] VITALS: BP 136/84; PULSE 82; RESP 16; TEMP 36.7; O2SAT 98
[2024-01-13] MEDS: Lithium Carbonate ER 450 MG TABLET.ER PO (08:11)
[2024-01-13] MEDS: Docusate Sodium 100 MG CAPSULE PO (08:11)
[2024-01-13] MEDS: Acetaminophen 325 MG TABLET 650 MG PO (08:22)
[2024-01-13] MEDS: hydrOXYzine HCL 50 MG TABLET PO (08:23)
--- NOTE | 2024-01-13 11:29 | PC.NURSE ---
Patient easily engaged. Reports mood is stable, denies depression or sadness, denies SI/HI plan or intent. Feels optimistic . Planning to go to program at [facility] following discharge. Reports mild anxiety r/t leaving. Denies perceptual disturbances, no overt psychosis or expressed delusions. Dressing changed to abdominal wound per patient request prior to discharge. Instructions provided for dressing on discharge paperwork. Patient reports understanding. All discharge paperwork reviewed with patient, reports understanding. All medications reviewed with patient, reports understanding. Follow up appointments reviewed, reports understanding. Crisis numbers provided to patient on discharge. All belongings taken with patient.
== END 2024-01-13 11:08 | disposition home or self-care (01) | DRG 885 ==
LOC: HO.ED 22:06 → HO.PADLT16 01-05 11:35
PROVIDERS: Admitting Provider Psychiatry & Neurology Psychiatry; Emergency Provider Emergency Medicine; Visit Provider Psychiatry & Neurology Psychiatry
DX: F31.63 Bipolar disorder, current episode mixed, severe, without psychotic features (principal); F43.10 Post-traumatic stress disorder, unspecified; Z79.899 Other long term (current) drug therapy
CPT/HCPCS: 36415; 80048; 80178; 99285; J2359

== ENCOUNTER → 2024-01-05 11:25 | Outpatient (BNV) | payer OTHER, SELFPAY | PROVIDERS: Admitting Provider Psychiatry & Neurology Psychiatry; Emergency Provider Emergency Medicine; Visit Provider Psychiatry & Neurology Psychiatry | DX: F31.63 Bipolar disorder, current episode mixed, severe, without psychotic features (principal) | CPT/HCPCS: 90792; 99231; 99232; 99233; 99239 ==

== ENCOUNTER 2024-12-04 14:59 | Emergency (ER) | payer MEDICAID, SELFPAY ==
[2024-12-04 15:35] VITALS: BP 141/81; PULSE 89; RESP 20; TEMP 36.8; O2SAT 100; BMI 22.9
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
[2024-12-04 16:33] VITALS: BP 126/85; PULSE 84; RESP 13; TEMP 36.7; O2SAT 100
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
[2024-12-04 16:47] VITALS: BP 126/85; PULSE 84; RESP 13; TEMP 36.7; O2SAT 100
--- OUTSIDE RECORDS SUMMARY | 2024-12-04 18:27 | XMS_ITS | Clinical Summary ---
Author Organization [facility] Address [address] [place] [address] Care Team Providers Care Rib Trim Separator Name Role Phone Seth Johnson MD Primary Care Provider Soo silva Social History Tobacco Use Types Packs/Day Years Used Date Smoking Tobacco: Never Assessed Comments Unknown Sex and Gender Information Value Date Recorded Sex Assigned at Not on file Legal Sex Female 9:19 AM EST Gender Identity Not on file Sexual Orientation Not on file Last Filed Vital Signs Vital Sign Reading Time Taken Comments Blood Pressure 140/91 11/27/2022 10:42 AM EDT Pulse 120 11/27/2022 10:42 AM EDT Temperature - - Respiratory Rate - - Oxygen Saturation - - Inhaled Oxygen Concentration - - Weight 64.9 kg (143 lb) 11/27/2022 10:42 AM EDT Height 157.5 cm (5' 2 ) 11/27/2022 10:42 AM EDT Body Mass Index 26.15 11/27/2022 10:42 AM EDT Plan of Treatment Health Maintenance Due Date Last Done Comments DTaP,Tdap,and Td Vaccines (1 - Tdap) 2005 Hepatitis B Vaccines (1 of 3 - 19+ 3-dose series) 2005 Cervical Cancer Screening: P ap Smear 2007 Depression Screening 07/26/2022 HIV Screening 07/26/2022 Hepatitis C Screening 07/26/2022 Social Influencers of Health Screening 07/26/2022 COVID-19 Vaccine ( - 2023-2 5 season) 2024 Influenza Vaccine (Season Ended) 2025 HIB Vaccines Aged Out No longer eligi ble based on patient's age to complete this topic HPV Vaccines Aged Out No longer eligi ble based on patient's age to complete this topic Hepatitis A Vaccines Aged Out No long er eligible based on patient's age to complete this topic IPV Vaccines Aged Out No longer eligi ble based on patient's age to complete this topic MMR Vaccines Aged Out No longer eligi ble based on patient's age to complete this topic Meningococcal ACWY Vaccine Aged Out N o longer eligible based on patient's age to complete this topic Meningococcal B Vaccine Aged Out No l onger eligible based on patient's age to complete this topic Pneumococcal Vaccine: Pediat rics (0 to 5 Years) and At-Risk Patients (6 to 64 Years) Aged Out No longer eligible b ased on patient's age to complete this topic RSV Immunization Patients Un annabel 20 months Aged Out No longer eligible b ased on patient's age to complete this topic Varicella Vaccines Aged Out No longer eligible based on patient's age to complete this topic Care Teams Rib Trim Separator Relationship Specialty Start Date End Date Seth Johnson MD PCP - General 04/16/21
== END 2024-12-04 16:48 | disposition home or self-care (01) ==
PROVIDERS: Emergency Provider Emergency Medicine
DX: T76.21XA Adult sexual abuse, suspected, initial encounter (principal); M79.10 Myalgia, unspecified site
CPT/HCPCS: 99283; 99285

== ENCOUNTER 2024-12-11 15:19 | Emergency (ER) | payer MEDICAID, SELFPAY ==
--- NOTE | ~2024-12-11 | CT_ITS ---
CLINICAL HISTORY: ? abdo wall infect from Left mons pubis cephalad CT abdomen and pelvis with contrast Comparison: None Findings: No consolidation or effusion. Unremarkable gallbladder and solid organs. Small hypodensities of the liver are too small to characterize statistically representing cyst or hemangioma. Small hypodensities of the bilateral kidneys are statistically representing cysts. Small left kidney stone. No bowel obstruction, pneumoperitoneum, or pneumatosis. Pelvic contents unremarkable. Normal appendix. Multiple surgical clips of the anterior abdominal wall. Asymmetric subcutaneous fat stranding of the left anterior pelvis. The bones are intact. IMPRESSION: Subcutaneous fat stranding of the left anterior pelvic wall concerning for cellulitis. No evidence of drainable abscess or soft tissue gas. Nonobstructing left renal calculi. This document has been electronically signed by: Bony Newton MD on 12/11/2024 18:57:48
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
[2024-12-11 15:32] VITALS: BP 128/82; PULSE 110; O2SAT 99
[2024-12-11 15:37] VITALS: BP 129/90; PULSE 111; RESP 16; TEMP 37.7; O2SAT 97; BMI 23.6
--- NOTE | 2024-12-11 16:20 | PC.NURSE ---
20gIV placed in the left AC - labs obtained/sent to lab. pt waiting for CT to be completed at this time. plan of care ongoing.
[2024-12-11 16:23] LABS: MANUAL DIFF FLAG NO
[2024-12-11 16:25] LABS: Basophils Absolute Auto 0.1 X10*3/uL (0.0-0.2); Basophils Percent Auto 0.7 % (0-2); Eosinophils Absolute Auto 0.3 X10*3/uL (0.0-0.4); Eosinophils Percent Auto 3.9 % (0-4); Hematocrit 38.9 % (37.0-47.0); Hemoglobin 13.1 g/dl (12.0-16.0); Imm Gran Abs Auto 0.01 X10*3/uL (0.00-0.03); Imm Gran Pct Auto 0.1 % (0.0-0.4); Lymphocytes Absolute Auto 1.6 X10*3/uL (1.2-4.9); Lymphocytes Percent Auto 22.8 % (20-40); Mean Corpuscular HGB Conc 33.7 g/dl (31.0-35.0); Mean Corpuscular Hemoglobin 31.7 pg (27.0-33.0); Mean Corpuscular Volume 94.2 fL (80.0-98.0); Mean Platelet Volume 11.9 fL (9.4-12.3); Monocytes Absolute Auto 0.4 X10*3/uL (0.1-1.2); Monocytes Percent Auto 5.4 % (2-11); Neutrophils Absolute Auto 4.8 x10*3/uL (2.0-8.3); Neutrophils Percent Auto 67.1 % (45-73); Platelet Count 255 X10*3/uL (160-400); Red Blood Count 4.13 X10*6/uL (4.20-5.50); Red Cell Distribution Width 12.6 % (11.0-16.0); White Blood Count 7.2 X10*3/uL (4.8-10.8)
[2024-12-11 16:27] LABS: Appearance Urine Clear; Color Urine Yellow; Glucose Urine UA Negative (Negative); Leukocyte Esterase Urine Negative (Negative); Nitrite Urine Negative (Negative); PH 7.5 (5.0-9.0); Specific Gravity - Urine <= 1.005 (1.005-1.025); Urine Blood Negative (Negative); Urine Ketones Negative (Negative); Urine Protein Negative (Neg-Trace)
[2024-12-11 16:47] LABS: Anion Gap 13 (12-20)
[2024-12-11 16:50] LABS: Alanine Aminotransferase 12 U/L (0-31); Albumin Level 4.1 g/dL (3.5-5.0); Aspartate Amino Transferase 13 U/L (5-31); Bilirubin Direct 0.1 mg/dL (0.0-0.5); Bilirubin Total 0.3 mg/dL (0.0-1.0); Blood Urea Nitrogen 15 mg/dL (9-16); Calcium 9.4 mg/dL (8.4-10.2); Carbon Dioxide 25 mmol/L (22-29); Chloride 108 mmol/L (96-108); Creatinine Clr Calc Pharmacy 87.4; Estimated Glomerular Filt Rate > 60; Glucose Random 102 mg/dL (60-115); Potassium 4.1 mmol/L (3.3-5.1); Sodium 142 mmol/L (135-145); Total Protein 6.5 g/dL (6.5-8.0)
[2024-12-11 16:51] LABS: C Reactive Protein < 0.10 mg/dL (< or = 0.50); Lipase 31 U/L (8-78)
[2024-12-11 16:57] LABS: HCG Quantitative < 2 mIU/mL
[2024-12-11 17:06] LABS: Alkaline Phosphatase 49 U/L (39-117)
--- NOTE | 2024-12-11 17:15 | PC.NURSE ---
pt to CT at this time.
[2024-12-11] MEDS: Ketorolac Tromethamine 15 MG/ML VIAL 10 MG IVPUSH (17:40)
[2024-12-11 18:20] VITALS: BP 116/75; PULSE 93; RESP 17; TEMP 36.7
--- NOTE | 2024-12-11 19:14 | PC.NURSE ---
culture obtained/sent to lab. 1:1 sitter remains present. plan of care ongoing. call gaines placed within reach.
[2024-12-11] MEDS: Doxycycline Monohydrate 100 MG CAPSULE PO (19:46)
[2024-12-11] MEDS: cephALEXin 500 MG CAPSULE PO (19:47)
[2024-12-11] MEDS: Acetaminophen 1,000 MG/100 ML PIGGYBACK 400 MG IV (19:47)
--- NOTE | 2024-12-11 19:51 | PC.NURSE ---
pt medicated per provider order. pt up for discharge - pending BLS transport at this time. 1:1 sitter remains present.
[2024-12-11 21:02] VITALS: BP 119/71; PULSE 88; RESP 18; TEMP 37.1; O2SAT 98
--- NOTE | 2024-12-11 21:07 | PC.NURSE ---
attempted to call [facility] x 2 w/ no success. will reattempt.
--- NOTE | 2024-12-11 21:25 | PC.NURSE ---
report given to ADI Thompson at this time. spoke w/ MARY Berry at [facility] in attempts to be transferred to the floor. no success when transferred.
[2024-12-11 21:31] VITALS: BP 119/71; PULSE 88; RESP 18; TEMP 37.1; O2SAT 98
== END 2024-12-11 21:32 ==
PROVIDERS: Emergency Provider Emergency Medicine; PCP Family Medicine
DX: L03.311 Cellulitis of abdominal wall (principal); R10.2 Pelvic and perineal pain; Z79.899 Other long term (current) drug therapy
CPT/HCPCS: 36415; 74177; 80048; 80076; 81003; 83690; 84702; 85025; 86140; 87070; 87077; 87186; 87205; 96365; 96375; 99284; 99285; J0131; J1885

== ENCOUNTER → 2024-12-11 17:00 | Outpatient (BNV) | payer MEDICAID, SELFPAY | PROVIDERS: Emergency Provider Emergency Medicine; PCP Family Medicine; Visit Provider Nuclear Medicine | DX: R10.2 Pelvic and perineal pain (principal) | CPT/HCPCS: 74177 ==

== ENCOUNTER 2025-02-01 19:34 | Inpatient (IN) | payer OTHER, SELFPAY ==
[2025-02-01 20:05] VITALS: BP 169/83; PULSE 68; RESP 18; TEMP 37.1; O2SAT 97
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
[2025-02-02 08:00] VITALS: PULSE 80; RESP 18
[2025-02-02] MEDS: Dextroamphetamine Sulfate 5 MG TABLET 30 MG PO (09:07)
[2025-02-02] MEDS: Mupirocin 2 % Oint 22 GM TUBE 1 APPL TOPICAL (09:08)
[2025-02-02] MEDS: Acetaminophen 325 MG TABLET 650 MG PO (09:25)
[2025-02-02 09:26] VITALS: BMI 22.9
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
--- NOTE | 2025-02-02 13:35 | PC.NURSE ---
Patient refusing to engage in admission process, this little the second shift of refusal to assessment questions. Admission assessments filled out to best of RNs ability with known or provided information.
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
[2025-02-03 19:47] VITALS: BP 143/85; PULSE 80; RESP 20; TEMP 36.8; O2SAT 97
[2025-02-03] MEDS: Acetaminophen 325 MG TABLET 650 MG PO (21:01)
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
[2025-02-04 20:00] VITALS: RESP 15
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
[2025-02-05 20:00] VITALS: BP 145/80; PULSE 68; RESP 16; TEMP 36.6; O2SAT 100
[2025-02-05] MEDS: Doxepin HCl 25 MG CAPSULE PO (21:21)
[2025-02-05] MEDS: Acetaminophen 325 MG TABLET 650 MG PO (21:28)
--- NOTE | 2025-02-05 22:51 | PC.NURSE ---
Patient refused [place] 300mg and Seroquel 100mg at bedtime. Provider was notified.
[2025-02-06 08:00] VITALS: BP 117/60; PULSE 86; RESP 18; TEMP 36.4; O2SAT 99
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
== END 2025-02-06 12:20 | disposition home or self-care (01) | DRG 885 ==
PROVIDERS: Admitting Provider Clinical Nurse Specialist Psychiatric/Mental Health, Adult; Visit Provider Clinical Nurse Specialist Psychiatric/Mental Health, Adult
DX: F31.63 Bipolar disorder, current episode mixed, severe, without psychotic features (principal); F17.210 Nicotine dependence, cigarettes, uncomplicated; Z71.6 Tobacco abuse counseling; F43.10 Post-traumatic stress disorder, unspecified; F12.20 Cannabis dependence, uncomplicated

== ENCOUNTER → 2025-02-01 19:34 | Outpatient (BNV) | payer OTHER, SELFPAY | PROVIDERS: Admitting Provider Clinical Nurse Specialist Psychiatric/Mental Health, Adult; Visit Provider Psychiatry & Neurology Psychiatry | DX: F31.63 Bipolar disorder, current episode mixed, severe, without psychotic features (principal); F12.20 Cannabis dependence, uncomplicated; F43.11 Post-traumatic stress disorder, acute; S31.109A Unspecified open wound of abdominal wall, unspecified quadrant without penetration into peritoneal cavity, initial encounter; L08.9 Local infection of the skin and subcutaneous tissue, unspecified | CPT/HCPCS: 99231; 99232 ==

== ENCOUNTER → 2025-02-01 19:34 | Outpatient (BNV) | payer MEDICAID, SELFPAY | PROVIDERS: Admitting Provider Clinical Nurse Specialist Psychiatric/Mental Health, Adult; Visit Provider Nurse Practitioner Family | DX: S31.109A Unspecified open wound of abdominal wall, unspecified quadrant without penetration into peritoneal cavity, initial encounter (principal); L08.9 Local infection of the skin and subcutaneous tissue, unspecified | CPT/HCPCS: 99222 ==

== ENCOUNTER 2025-02-11 22:19 | Emergency (ER) | payer MEDICAID, SELFPAY ==
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
[2025-02-11 23:08] VITALS: BMI 22.6
--- NOTE | 2025-02-11 23:13 | PC.NURSE ---
Upon attempting to medicate pt and obtain bloodwork, pt refused all intervention stating It's against my judaism. I don't want that needle or any of that, I will suffer instead. RN explained risks of refusing evaluation and intervention, pt still refusing. PA aware. Pt aaox4, ambulatory. Pt given underwear and pants.
== END 2025-02-11 23:24 | disposition home or self-care (01) ==
PROVIDERS: Emergency Provider Emergency Medicine Emergency Medical Services
DX: M25.531 Pain in right wrist (principal); M79.601 Pain in right arm; M54.50 Low back pain, unspecified; M79.604 Pain in right leg; L55.0 Sunburn of first degree; F17.210 Nicotine dependence, cigarettes, uncomplicated
CPT/HCPCS: 99283; 99284

== ENCOUNTER 2025-02-28 08:50 | Inpatient (IN) | payer OTHER, SELFPAY ==
[2025-02-28] MEDS: diazePAM 10 MG/2 ML CARTRIDGE IM (09:00)
[2025-02-28 09:04] VITALS: RESP 28; BMI 23.2
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
--- NOTE | 2025-02-28 10:10 | MHC.EDTECH ---
Patient refusing phlebotomy draw at this time. RN aware.
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
[2025-02-28 10:23] VITALS: BP 142/75; PULSE 88; RESP 20; O2SAT 96
[2025-02-28 10:27] VITALS: TEMP 36.9
--- OUTSIDE RECORDS SUMMARY | 2025-02-28 11:05 | XMS_ITS | Clinical Summary ---
Author Organization [facility] Address [address] [place] [address] Care Team Providers Care Starch Dumper Name Role Phone Seth Johnson MD Primary [...] - 2023-2 5 season) 2024 Influenza Vaccine (#1) 2025 HIB Vaccines Aged Out No longer [...] 5 Years) and At-Risk Patients (6 to 49 Years) Aged Out No longer eligible b ased on patient's age to complete this topic RSV Immunization Patients Un annabel 20 months Aged Out No longer eligible b ased on patient's age to complete this topic Varicella Vaccines Aged Out No longer eligible based on patient's age to complete this topic Care Teams Starch Dumper Relationship Specialty Start Date End Date Seth Johnson MD PCP - General 04/16/21
--- NOTE | 2025-02-28 12:40 | MHC.EDTECH ---
Patient still refusing lab draw. RN aware
--- NOTE | 2025-02-28 12:57 | PC.NURSE ---
continues to refuse labs/ provide urine sample
[2025-02-28 15:28] VITALS: RESP 16
--- NOTE | 2025-02-28 15:29 | PC.NURSE ---
Pt is currently refusing to allow for blood work and will not allow this RN to perform vital signs
--- NOTE | 2025-02-28 19:22 | PC.NURSE ---
patient appears to remain asleep presently respirations are even and unlabored patien appears in no distress
[2025-02-28 23:04] VITALS: BP 111/66; PULSE 88; RESP 16; TEMP 36.6; O2SAT 100
--- NOTE | 2025-02-28 23:17 | MHC.EDTECH ---
Pt up to use bathroom. Obtained pt vitals when returning to room without issue. Informed pt that there is labs ordered to be drawn which pt declined to have done. RN aware. Gave pt some radha darryl and crackers per request.
[2025-03-01] MEDS: Amphetamine Mixed Salts 20 MG TABLET PO (11:30)
--- NOTE | 2025-03-01 11:31 | PC.NURSE ---
Pt willing to give urine sample but is refusing any lab draws
[2025-03-01 11:35] VITALS: BP 113/80; PULSE 99; RESP 14; TEMP 36.1; O2SAT 99
--- NOTE | 2025-03-01 11:36 | MHC.EDTECH ---
Patient agreeable to providing urine sample, but not blood work, and told this tech I don't usually give any of my body fluids, you're gila to get a urine sample. RN aware
[2025-03-01 11:56] LABS: Appearance Urine Clear; Glucose Urine UA Negative (Negative); PH 6.0 (5.0-9.0); Specific Gravity - Urine >= 1.030 (1.005-1.025)
[2025-03-01 11:59] LABS: Cannabinoid Screen Urine POSITIVE (Not Detect); UPreg QC Valid YES
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
[2025-03-02 08:00] VITALS: RESP 16
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
[2025-03-02 19:43] VITALS: BP 126/64; PULSE 73; TEMP 36.9; O2SAT 98
[2025-03-03 07:56] VITALS: RESP 16
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
[2025-03-03 19:31] VITALS: BP 151/68; PULSE 66; TEMP 36.9; O2SAT 99
[2025-03-04 08:00] VITALS: RESP 18
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
[2025-03-04] MEDS: Amphetamine Mixed Salts 10 MG TABLET PO (13:47)
[2025-03-04 19:11] VITALS: BP 123/81
[2025-03-04 19:49] VITALS: BP 123/86; PULSE 80; RESP 15; TEMP 37.1; O2SAT 98
[2025-03-05 08:00] VITALS: BP 114/65; PULSE 67; RESP 18; TEMP 36.8; O2SAT 99
[2025-03-05] MEDS: Amphetamine Mixed Salts 20 MG TABLET PO (08:14)
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
[2025-03-05] MEDS: Amphetamine Mixed Salts 10 MG TABLET PO (14:52)
[2025-03-05 19:45] VITALS: BP 136/62; PULSE 97; RESP 17; TEMP 36.7; O2SAT 97
[2025-03-06 07:45] VITALS: BP 131/60; PULSE 73; RESP 16; TEMP 36.6; O2SAT 99
[2025-03-06] MEDS: Amphetamine Mixed Salts 20 MG TABLET PO (08:02)
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
[2025-03-06] MEDS: Amphetamine Mixed Salts 10 MG TABLET PO (11:43)
== END 2025-03-06 12:02 | disposition home or self-care (01) | DRG 885 ==
LOC: HO.ED 10:18 → HO.PM5 03-01 13:43
PROVIDERS: Emergency Medicine; Admitting Provider Clinical Nurse Specialist Psychiatric/Mental Health, Adult; Emergency Provider Emergency Medicine; Visit Provider Clinical Nurse Specialist Psychiatric/Mental Health, Adult
DX: F31.2 Bipolar disorder, current episode manic severe with psychotic features (principal); F43.10 Post-traumatic stress disorder, unspecified; F90.9 Attention-deficit hyperactivity disorder, unspecified type; Z86.14 Personal history of Methicillin resistant Staphylococcus aureus infection; Z79.899 Other long term (current) drug therapy
CPT/HCPCS: 80307; 81003; 81025; 99285; J1630; J3360; S9485

== ENCOUNTER → 2025-03-01 13:43 | Outpatient (BNV) | payer OTHER, SELFPAY | PROVIDERS: Admitting Provider Clinical Nurse Specialist Psychiatric/Mental Health, Adult; Emergency Provider Emergency Medicine; Visit Provider Nurse Practitioner Psychiatric/Mental Health | DX: F31.9 Bipolar disorder, unspecified (principal); F43.11 Post-traumatic stress disorder, acute; F90.9 Attention-deficit hyperactivity disorder, unspecified type | CPT/HCPCS: 99232 ==

== ENCOUNTER → 2025-03-01 13:43 | Outpatient (BNV) | payer MEDICAID, SELFPAY | PROVIDERS: Admitting Provider Clinical Nurse Specialist Psychiatric/Mental Health, Adult; Emergency Provider Emergency Medicine; Visit Provider Nurse Practitioner Family | DX: S31.109A Unspecified open wound of abdominal wall, unspecified quadrant without penetration into peritoneal cavity, initial encounter (principal); L08.9 Local infection of the skin and subcutaneous tissue, unspecified; F31.9 Bipolar disorder, unspecified; F43.10 Post-traumatic stress disorder, unspecified; F90.9 Attention-deficit hyperactivity disorder, unspecified type | CPT/HCPCS: 99221 ==